=== PATIENT | female | born 1945 | race Caucasian/White ===

== ENCOUNTER → 2017-09-07 | Outpatient (CLI) | payer MEDICARE, OTHER ==
--- NOTE | 2017-09-08 11:18 | MM ---
Reason for exam: screening (asymptomatic). Last mammogram was performed 1 year and 11 months ago. History: Patient is postmenopausal. Physical Findings: A clinical breast exam by your physician is recommended on an annual basis and results should be correlated with mammographic findings. MG 3D Screening Mammo W/Cad Bilateral CC and MLO view(s) were taken. Prior study comparison: September 25, 2015, bilateral MG 3d screening mammo w/cad. August 04, 2012, [facility] DIGITAL BILATERAL MAMMOGRAM w/CAD. The breast tissue is heterogeneously dense. This may lower the sensitivity of mammography. Stable right calcifications back to 2016. Benign bilateral vascular calcifications. Stable right asymmetry unchanged from 08/01/12. ASSESSMENT: Benign, BI-RAD 2 RECOMMENDATION: Routine screening mammogram of both breasts in 1 year.
== END | disposition home or self-care (01) ==
LOC: RADMAMWWP 14:43
PROVIDERS: ATTEND Internal Medicine
DX: Z12.31 Encounter for screening mammogram for malignant neoplasm of breast (principal)
CPT/HCPCS: 77063; 77067

== ENCOUNTER → 2019-04-10 | Outpatient (CLI) | payer MEDICARE, OTHER ==
--- NOTE | 2019-04-11 07:38 | MM ---
Reason for exam: screening (asymptomatic). Last mammogram was performed 1 year and 7 months ago. History: Patient is postmenopausal. Physical Findings: A clinical breast exam by your physician is recommended on an annual basis and results should be correlated with mammographic findings. MG 3D Screening Mammo W/Cad Bilateral CC and MLO view(s) were taken. Prior study comparison: September 07, 2017, bilateral MG 3d screening mammo w/cad. September 25, 2015, bilateral MG 3d screening mammo w/cad. The breast tissue is heterogeneously dense. This may lower the sensitivity of mammography. Benign appearing bilateral calcifications. No suspicious abnormality on the left. Two right upper outer quadrant posterior depth masses measuring 8mm and 4mm, new from the prior. ASSESSMENT: Incomplete: need additional imaging evaluation, BI-RAD 0 RECOMMENDATION: Special view mammogram and ultrasound of the right breast. [facility] will attempt to contact patient to return for supplemental views and ultrasound.
== END | disposition home or self-care (01) ==
LOC: RADMAMWWP 14:23
PROVIDERS: ATTEND Internal Medicine
DX: Z12.31 Encounter for screening mammogram for malignant neoplasm of breast (principal)
CPT/HCPCS: 77063; 77067

== ENCOUNTER → 2019-05-04 | Outpatient (CLI) | payer MEDICARE, OTHER ==
[2019-05-04 16:39] VITALS: BP 154/89; PULSE 66; RESP 18; TEMP 97.7
--- NOTE | 2019-05-04 17:03 | P.GSHP ---
History of Present Illness H&P Date: 05/04/19 Chief Complaint: abnormal ultrasound of the right breast The patient is a 73 year old white female who had a routine mammogram of the right breast on 04-10-19. After this it was recommended she undergo a diagnostic right breast mammogram and ultrasound. On the ultrasound she was noted to have a 0.4 x 0.3 cm oval lesion in the upper outer quadrant region. The mammogram report is not available. The patient is seen in consultation for Dr. Bragg regarding ultrasound abnor mality requiring biopsy. The patient does not have any lumps masses or nodules in her breast. She is to complain of any nipple discharge or skin changes. She has no history of any recent trauma or infection in the breast. Is not on any hormone replacement therapy at this time. Of concern is the fact that the patient is scheduled to have right total knee replacement in the near future. Additionally she is very concerned because her 4 years ago from prostate cancer and melanoma. She is very concerned about cancer and wishes to have the breast findings resolved prior to any knee surgery. Family history: negative Hormonal History: menarche: 13 , 1 miscarriage, breast fed: yes, first born at 30 menopause: 55 BCP: 3 days hormones: none Past Surgical History: 1. 3 surgeries on right knee 2. ablation uterine 3. Percutaneous lumbar discectomy 4. kidney stones/ stent placed and removed Medical history: none Social History: smoke: none alcohol: none drugs: none - Constitutional Constitutional: Reports sweats - EENT Eyes: denies blurred vision, denies pain Ears: deny: decreased hearing, tinnitus Ears, nose, mouth and throat: Reports headache, Denies sore throat - Breasts Breasts: bilateral: as per HPI - Cardiovascular Cardiovascular: Reports high blood pressure, Denies chest pain, Denies shortness of breath - Respiratory Respiratory: Denies cough, Denies 7 - Gastrointestinal Gastrointestinal: Denies abdominal pain, Denies diarrhea, Denies nausea, Denies vomiting - Genitourinary (Female) Genitourinary: Reports kidney stones - Menstruation Menstruation: Reports postmenopausal - Musculoskeletal Comment: right knee osetoarthritis - Integumentary Integumentary: Denies pruritus, Denies rash - Neurological Neurological: Denies numbness, Denies weakness - Psychiatric Psychiatric: Denies anxiety, Denies depression - Endocrine Comment: hypothyroid Endocrine: Denies fatigue, Denies weight change - Hematologic/Lymphatic Comment: none - Allergic/Immunologic Allergic/Immunologic: Reports as per HPI Past Medical History Past Medical History: Hypertension, Thyroid Disorder Additional Past Medical History / Comment(s): kidney stones History of Any Multi-Drug Resistant Organisms: None Reported Past Surgical History: Orthopedic Surgery Additional Past Surgical History / Comment(s): knee/ kidney stent Past Psychological History: No Psychological Hx Reported Smoking Status: Never smoker Past Alcohol Use History: None Reported Medications and Allergies Home Medications Medication Instructions Recorded Confirmed Type Levothyroxine Sodium 100 mcg PO QAM 05/04/19 05/04/19 History Naproxen 250 mg PO QAM 05/04/19 05/04/19 History Ramipril 5 mg PO QAM 05/04/19 05/04/19 History amLODIPine [Norvasc] 5 mg PO QAM 05/04/19 05/04/19 History Allergies Allergy/AdvReac Type Severity Reaction Status Date / Time Penicillins Allergy Unknown Verified 05/04/19 16:24 Surgical - Exam BMI 21.4 - General well developed, well nourished, no distress - Eyes normal ocular movement - ENT normal pinna, normal nares, no hearing loss, no congestion - Neck no masses, trachea midline, no lymphadectomy - Respiratory normal expansion, normal respiratory effort, clear to percussion, clear to auscultation - Cardiovascular Rhythm: regular Heart Sounds: normal: S1, S2 - Abdomen Abdomen: soft, non tender, no guarding, no rigid, no rebound - Integumentary normal turgor - Neurologic no disoriented, no combative - Musculoskeletal normal gait, normal posture - Psychiatric oriented to time, oriented to person, oriented to place, speech is normal, memory intact breast exam: Right breast: Multi-positional exam fibrocystic changes, no dominant masses or nodules of concern Right axilla: No adenopathy of concern left breast: Multi- positional exam no dominant masses or nodules of concern Left axilla: No adenopathy of concern Results Ultrasound results reviewed Assessment and Plan Assessment: Impression: 1. Ultrasound abnormality right breast 2. Fibrocystic breast changes 3. Osteoarthritis 4. Hypertension 5. Hypothyroid 6. Patient scheduled for right total knee replacement Plan: 1. Patient will stop taking naproxen one-week prior biopsy 2. Ultrasound core biopsy abnormality right breast 3. Follow-up 1 week after ultrasound core biopsy I discussed with the patient the findings on her ultrasound. Is been recommended she undergo an ultrasound core biopsy of the right breast. She is scheduled for a right total knee replacement later this month. We will like to get the breast biopsy done next week if possible to give time to get the pathology results back and assure that there is no evidence of any infection after the breast biopsy. Risks of the procedure include bleeding, infection, and reaction to the anesthetic were discussed. She understands and this will be scheduled in the very near future. Cc: Dr. Holt Encounter 25 minutes, greater than 50% of time spent in planning and counseling
== END | disposition home or self-care (01) ==
LOC: WWCWWP 15:58
PROVIDERS: ATTEND Surgery
DX: Z53.9 Procedure and treatment not carried out, unspecified reason (principal)

== ENCOUNTER → 2019-05-04 | Outpatient (CLI) | payer MEDICARE, OTHER ==
--- NOTE | 2019-05-05 07:36 | MM ---
Reason for exam: additional evaluation requested from abnormal screening. Last mammogram was performed 1 month ago. History: Patient is postmenopausal. Physical Findings: Nurse did not find any significant physical abnormalities on exam. MG 3D Work Up W/Cad RT Spot compression CC, spot compression MLO, XCCM, and LM view(s) were taken of the right breast. Prior study comparison: April 10, 2019, bilateral MG 3d screening mammo w/cad. September 07, 2017, bilateral MG 3d screening mammo w/cad. The breast tissue is heterogeneously dense. This may lower the sensitivity of mammography. The 8mm focal asymmetry resolved on additional views. However the right upper outer quadrant posterior depth 4mm mass persists. There are similar right calcifications back to 2016. These results were verbally communicated with the patient and result sheet given to the patient on 05/04/19. ASSESSMENT: Incomplete: need additional imaging evaluation, BI-RAD 0 RECOMMENDATION: Ultrasound of the right breast. upper outer quadrant
--- NOTE | 2019-05-05 07:39 | USB ---
Reason for exam: additional evaluation requested from abnormal screening. History: Patient is postmenopausal. US Breast Workup Limited RT Right limited breast ultrasound including focal area of concern, retroareolar and axilla demonstrates a 0.4 x 0.3 x 0.3cm oval, thick, hypoechoic lesion at 11 o'clock, new on mammogram, biopsy recommended. These results were verbally communicated with the patient and result sheet given to the patient on 05/04/19. ASSESSMENT: Suspicious, BI-RAD 4 RECOMMENDATION: Ultrasound core biopsy of the right breast. Called Dr. Holt's office with mammographic findings and has scheduled an appointment for the patient for 05/04/[address] Hairston. Biopsy scheduled for 05/19/19 at 11:20. PRELIMINARY REPORT CALLED AND FAXED TO DR. HAIRSTON ON 05/05/19.
== END | disposition home or self-care (01) ==
LOC: RADMAMWWP 13:24
PROVIDERS: ATTEND Internal Medicine
DX: R92.8 Other abnormal and inconclusive findings on diagnostic imaging of breast (principal)
CPT/HCPCS: 77065; 76642; G0279; 77061

== ENCOUNTER → 2019-05-05 | Outpatient (CLI) | payer MEDICARE, OTHER ==
[2019-05-05 11:30] LABS: HCT 44.7 % (34.0-46.0); HGB 14.6 gm/dL (11.4-16.0); MCH 28.4 pg (25.0-35.0); MCHC 32.8 g/dL (31.0-37.0); MCV 86.6 fL (80.0-100.0); Mean Platelet Volume 9.3; Platelet Count 235 k/uL (150-450); RBC 5.16 m/uL (3.80-5.40); RDW 13.6 % (11.5-15.5); WBC 9.2 k/uL (3.8-10.6)
[2019-05-05 11:44] LABS: Albumin 4.5 g/dL (3.5-5.0); Calcium 10.1 mg/dL (8.4-10.2); Potassium 4.6 mmol/L (3.5-5.1); Total Bilirubin 0.7 mg/dL (0.2-1.3); Total Protein 7.3 g/dL (6.3-8.2)
[2019-05-05 11:56] LABS: INR 0.9 (<1.2); Partial Thromboplastin Time 24.8 sec (22.0-30.0)
== END | disposition home or self-care (01) ==
LOC: LABPAT 10:24
PROVIDERS: ATTEND Orthopaedic Surgery
DX: Z01.812 Encounter for preprocedural laboratory examination (principal); Z01.818 Encounter for other preprocedural examination
CPT/HCPCS: 36415; 80053; 85027; 85610; 85730; 87070

== ENCOUNTER → 2019-05-15 | Day surgery (SDC) | payer MEDICARE, OTHER ==
[2019-05-15 09:41] VITALS: RESP 12
[2019-05-15 10:35] VITALS: BP 154/90; PULSE 64; TEMP 97.8
--- NOTE | 2019-05-15 11:43 | USB ---
EXAMINATION TYPE: US biopsy breast VAD RT, MG diagnostic mammo RT wo CAD DATE OF EXAM: 05/15/2019 CLINICAL HISTORY: R92.8 Abnormal Mammogram. TECHNIQUE: Ultrasound guided core biopsy of right breast. COMPARISON: 05/04/2019 right breast ultrasound and mammogram FINDINGS: The procedure of ultrasound guided core biopsy was explained to the patient. Benefits, alternatives, and risks were discussed. An informed consent was then obtained. Preprocedure timeout was performed. The patient was placed in supine positioning for imaging and for the procedure. The overlying skin was prepped and draped in usual sterile fashion. Lidocaine buffered with bicarbonate was used as anesthetic into the skin and subcutaneous tissue up to a 4 mm mass at the 11:00 position in the right breast. A keo was made with surgical scalpel. Under ultrasound guidance, a 12-gauge vacuum assisted biopsy gun device was used to obtain 4 core samples. Following this, a ribbon-shaped biopsy marker was left in the mass, well seen on ultrasound. Postprocedure mammogram demonstrates appropriate biopsy marker placement. The patient tolerated the procedure well without any immediate complication. The patient was kept in the radiology department for short stay after the procedure and then discharged home in stable condition. IMPRESSION: Successful, uncomplicated ultrasound guided core biopsy of a highly suspicious 4 mm mass in the right breast at the 11:00 position, full pathology results to follow. 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 See Surgical Pathology Cancer Case Summary and Comment. Recommendation Surgical consult of the right breast. [facility]AG[facility]
== END ==
LOC: RADUSWWP 08:59
PROVIDERS: ATTEND Surgery
DX: C50.911 Malignant neoplasm of unspecified site of right female breast (principal); Z17.0 Estrogen receptor positive status [ER+]
CPT/HCPCS: 88305; 88342; 88341; 77065; 19083; A4648; J2001

== ENCOUNTER → 2019-05-19 | Outpatient (CLI) | payer MEDICARE, OTHER ==
--- NOTE | 2019-05-19 08:55 | P.PN ---
Subjective Progress Note Date: 05/19/19 Principal diagnosis: Right breast stage IA cancer Nancy is a 73-year-old white female status post right breast ultrasound core biopsy. This was performed and [id number]. Her pathology revealed an invasive ductal carcinoma. It is T1 N0 M0 G2ER + SC - HER-2 + invasive ductal carcinoma. The patient was scheduled to have a right total knee replacement nest week. I discussed the case [facility] and the recommendation is that the patient have the breast cancer treated prior to the knee replacement. The patient comes in this morning to discuss treatment options with her daughter present. Family history: Negative Hormonal history: Menarche: 13 1 miscarriage, breast-fed: Yes, first born at 30 Menopause: 55 control pills: 3 days Hormones: Negative Past surgical history: 1. 3 surgeries on right knee 2. Uterine ablation 3. Percutaneous lumbar discectomy 4. Kidney stones/stent placement and removed Medical history: Negative Social history: Smoke: Negative Occult: Negative Drugs: Negative Review of systems Constitutional: Sweats HEENT: Negative Breasts: As per HPI Cardiovascular: Hypertension, negative could've chest pain, negative shortness of breath Respiratory: Negative GI: Negative : Kidney stones Menstruation: Postmenopausal Musculoskeletal: Osteoarthritis right knee replacement recommended Integument: Negative Neurologic: Negative Psychiatric: Negative Endocrine: Hypothyroid Hematologic: Negative Objective - Exam BMI 21.4 - Constitutional General appearance: Present: average body habitus - EENT Eyes: Present: EOMI ENT: Present: hearing grossly normal - Neck Neck: Present: normal ROM - Respiratory Respiratory: bilateral: CTA - Cardiovascular Rhythm: regular Heart sounds: normal: S1, S2 - Gastrointestinal General gastrointestinal: Present: normal bowel sounds, soft - Integumentary Integumentary: Present: normal turgor - Musculoskeletal Musculoskeletal: Present: gait normal - Psychiatric Psychiatric: Present: A&O x's 3, appropriate affect, intact judgment & insight - Additional findings Additional findings: Breast examination: Right breast: Inspection: Mild ecchymosis at core biopsy site, no evidence of infection no evidence of hematoma Ptosis: Grade 2 Breast examination prior to biopsy right breast: Multiple positional exam fibrocystic changes or dominant masses or nodules of concern Right axilla: No adenopathy of concern Left breast: Multiple positional exam no dominant masses or nodules of concern, fibrocystic changes Left axilla: No adenopathy of concern Assessment and Plan Assessment: Impression: 1. Invasive ductal carcinoma right breast stage IA 2. Fibrocystic breast changes 3. Osteoarthritis 4. Hypertension 5. Hypothyroid 6. Patient scheduled for right total knee replacement/canceled secondary to breast cancer discussed with [facility] this will be done after treatment of the breast cancer. Plan: 1. Patient to stop naproxen one-week prior to surgery 2. Needle localization right breast lumpectomy possible tissue transfer, sentinel node biopsy possible axillary node dissection 3. Presentation of case at tumor board I have discussed in detail with the patient and her daughter the pathology findings. We discussed surgical options which would include lumpectomy plus or minus radiation therapy, mastectomy plus or minus reconstruction. The patient was offered an appointment with plastic surgery which she declined. Additionally sentinel node biopsy plus or minus axillary node dissection. The risks and benefits of each were discussed with the patient. The possibility of positive margin which would require additional surgery was discussed as well. The patient and her daughter understand and wish to proceed. Risks include but are not limited to bleeding, infection, reaction to the anesthetic, positive surgical margin requiring reexcision. CC: DR. Holt encounter 60 minutes> 50% of time in planning and counselling Time with Patient: Greater than 30
== END ==
LOC: WWCBREAST 07:21
PROVIDERS: ATTEND Surgery
DX: Z53.9 Procedure and treatment not carried out, unspecified reason (principal)

== ENCOUNTER 2019-05-27 15:59 | Emergency (ER) | payer MEDICARE, OTHER ==
[2019-05-27 16:09] VITALS: RESP 18
[2019-05-27] MEDS ORDERED: MORPHINE SULFATE 2 MG/ML SYRINGE IVP STA ×2 (16:42→18:04)
[2019-05-27] MEDS ORDERED: SODIUM CHLORIDE 0.9% 500 ML 500 ML IV STA (16:42)
[2019-05-27] MEDS ORDERED: ONDANSETRON 4 MG/2 ML VIAL IVP STA (16:42)
[2019-05-27] MEDS ORDERED: SODIUM CHLORIDE 0.9% 1,000 ML IV STA (16:42)
[2019-05-27] MEDS ORDERED: KETOROLAC 30 MG/ML 1 ML VIAL IVP STA (16:42)
[2019-05-27 17:06] LABS: Basophils # (A) 0.1 k/uL (0-0.2); Basophils % (A) 1 %; Eosinophils # (A) 0.1 k/uL (0-0.7); Eosinophils % (A) 1 %; HCT 45.7 % (34.0-46.0); HGB 14.6 gm/dL (11.4-16.0); Lymphocytes # (A) 1.9 k/uL (1.0-4.8); Lymphocytes % (A) 23 %; MCH 27.2 pg (25.0-35.0); MCV 85.1 fL (80.0-100.0); Mean Platelet Volume 9.4; Monocytes # (A) 0.5 k/uL (0-1.0); Monocytes % (A) 6 %; Neutrophils # (A) 5.5 k/uL (1.3-7.7); Neutrophils % (A) 67 %; Platelet Count 239 k/uL (150-450); RBC 5.37 m/uL (3.80-5.40); RDW 13.3 % (11.5-15.5); WBC 8.2 k/uL (3.8-10.6)
[2019-05-27 17:11] LABS: Appearance,Urine Clear (Clear); Bacteria,Urine Rare /hpf; Bilirubin,Urine Negative (Negative); Blood,Urine Moderate (Negative); Color,Urine Yellow; Glucose,Urine (UA) Negative (Negative); Ketones,Urine Negative (Negative); Leukocyte Esterase,Urine Moderate (Negative); Mucus,Urine Few /hpf; Nitrite,Urine Negative (Negative); Protein,Urine 1+ (Negative); RBC,Urine >182 /hpf (0-5); Specific Gravity,Urine 1.017 (1.001-1.035); Squamous Epithelial Cell,Urine <1 /hpf (0-4); Urobilinogen,Urine <2.0 mg/dL (<2.0); WBC,Urine 38 /hpf (0-5)
[2019-05-27 17:18] LABS: Albumin 4.4 g/dL (3.5-5.0); Potassium 4.2 mmol/L (3.5-5.1); Total Bilirubin 0.5 mg/dL (0.2-1.3); Total Protein 7.3 g/dL (6.3-8.2)
--- NOTE | 2019-05-27 17:24 | ED ---
Abdominal Pain HPI - General Chief Complaint: Abdominal Pain Stated Complaint: Flank pain Time Seen by Provider: 05/27/19 16:33 Source: patient Mode of arrival: ambulatory Limitations: no limitations - History of Present Illness Initial Comments: This 73-year-old female presented to the complaint of some right flank pain. She states that it is in her right back and lateral right mid abdomen. She denies any fever or chills. She's had nausea but no vomiting. There's been no diarrhea or constipation. She does have a history of previous kidney stones and this feels exactly similar. She has had to have a stent in her right ureter in the past by Dr. Guevara in 2014. She denies any frequency, urgency dysuria, or hematuria. The pain was sudden in onset and fairly severe. No other complaints or modifying factors. She does relate additional history that she recently was diagnosed this month with breast cancer. She is set up for a lumpectomy on June [address] Hairston. She is not currently on chemotherapy but may need radiation therapy in the future. - Related Data Home Medications Medication Instructions Recorded Confirmed Levothyroxine Sodium 100 mcg PO QAM 05/04/19 05/15/19 Naproxen 500 mg PO QAM 05/04/19 05/15/19 Ramipril 10 mg PO QAM 05/04/19 05/15/19 amLODIPine [Norvasc] 5 mg PO QAM 05/04/19 05/15/19 Biotin 5,000 mcg PO DAILY 05/09/19 05/15/19 Cholecalciferol (Vitamin D3) 2,000 units PO DAILY 05/09/19 05/15/19 [Vitamin D3] Lutein 20 mg PO DAILY 05/09/19 05/15/19 Previous Rx's Medication Instructions Recorded Ciprofloxacin HCl [Cipro] 500 mg PO Q12HR #14 tablet 05/27/19 Hydrocodone/Acetaminophen [[place] 1 - 2 each PO Q4HR PRN #20 tab 05/27/19 5-325] Ondansetron Odt [Zofran ODT] 8 mg PO Q8HR PRN #15 tab 05/27/19 Tamsulosin [Flomax] 0.4 mg PO DAILY #15 cap 05/27/19 Allergies Allergy/AdvReac Type Severity Reaction Status Date / Time Penicillins Allergy Unknown Verified 05/15/19 11:45 Review of Systems ROS Statement: Those systems with pertinent positive or pertinent negative responses have been documented in the HPI. ROS Other: All systems not noted in ROS Statement are negative. Past Medical History Past Medical History: Cancer, Hypertension, Thyroid Disorder Additional Past Medical History / Comment(s): breast History of Any Multi-Drug Resistant Organisms: None Reported Past Surgical History: Orthopedic Surgery Additional Past Surgical History / Comment(s): knee/ kidney stent Past Anesthesia/Blood Transfusion Reactions: Motion Sickness, Postoperative Nausea & Vomiting (PONV) Past Psychological History: No Psychological Hx Reported Smoking Status: Never smoker Past Alcohol Use History: None Reported Past Drug Use History: None Reported - Past Family History Father Additional Family Medical History / Comment(s): at age 82 from coronary artery disease (4 blocked arteries) Mother Family Medical History: No Reported History Additional Family Medical History / Comment(s): at age 90 from heart issues she incurred from Rheumatic Fever as a child. General Exam - General Exam Comments Initial Comments: GENERAL: The patient is well nourished and well hydrated. VITAL SIGNS: Heart rate, blood pressure, respiratory rate reviewed as recorded in nurse's notes. EYES: Pupils are round and reactive. Extraocular movements are intact. No c onjunctival / lid redness or swelling. ENT: No external evidence of injury, swelling, or ecchymosis. Airway is patent. Throat is clear. NECK: Nontender. No swelling or evidence of injury. No subcutaneous emphysema. Trachea is midline. No thyroid mass. HEART: Regular rate and rhythm. Good peripheral pulses. LUNGS/CHEST: Breath sounds clear and equal bilaterally. No rales, rhonchi, or wheezes. No ecchymosis, subcutaneous emphysema, or tenderness. ABDOMEN: Tenderness is noted to the right lateral mid abdomen as well as the right flank. Abdomen is otherwise soft. No palpable masses or organomegaly. No peritoneal signs. No abdominal wall swelling or ecchymosis. EXTREMITIES: No extremity tenderness. Normal muscle tone and function. No thoracolumbar tenderness. NEUROLOGIC: Sensation is grossly intact. Cranial nerve exam reveals face is symmetrical, tongue is midline, speech is clear. SKIN: No abrasions or ecchymosis is noted. No induration or masses noted. PSYCHIATRIC: Alert and oriented. Appropriate behavior and judgment. Limitations: no limitations Course Vital Signs 05/27/19 16:06 Temperature 97.4 F L Pulse Rate 64 Respiratory 18 Rate Blood Pressure 149/74 O2 Sat by Pulse 97 Oximetry Medical Decision Making - Medical Decision Making The patient was seen and examined. All diagnostics were reviewed. The laboratory overall is unremarkable. The IV is established and she received some morphine as well as some Zofran and Toradol intravenously. The urinalysis does show significant hematuria with some increase elevation of white blood cells as well. It does not appear to be conclusive for a urinary tract infection. The patient is feeling much improved on recheck with her pain level at 4 of 10. Additional 2 mg of morphine was given intravenously. The computed tomography scan of the abdomen and pelvis does show evidence of a right proximal 7 mm ureteral stone with hydronephrosis. There are multiple other stones noted in the right kidney. Overall, it is felt as though the patient is stable for discharge home. It is not felt as though she would benefit from admission to the hospital especially in light of her breast cancer diagnosis and exposure to additional germs. She is agreeable with this plan. She is able to be discharged home on last event back in 2013. She will need close follow-up with Dr. Guevara from urology. Return parameters are discussed. - Lab Data Result diagrams: 05/27/19 Unknown 05/27/19 Unknown Lab Results 05/27/19 05/27/19 05/27/19 Range/Units Unknown Unknown Unknown WBC 8.2 (3.8-10.6) k/uL RBC 5.37 (3.80-5.40) m/uL Hgb 14.6 (11.4-16.0) gm/dL Hct 45.7 (34.0-46.0) % MCV 85.1 (80.0-100.0) fL MCH 27.2 (25.0-35.0) pg MCHC 32.0 (31.0-37.0) g/dL RDW 13.3 (11.5-15.5) % Plt Count 239 (150-450) k/uL Neutrophils % 67 % Lymphocytes % 23 % Monocytes % 6 % Eosinophils % 1 % Basophils % 1 % Neutrophils # 5.5 (1.3-7.7) k/uL Lymphocytes # 1.9 (1.0-4.8) k/uL Monocytes # 0.5 (0-1.0) k/uL Eosinophils # 0.1 (0-0.7) k/uL Basophils # 0.1 (0-0.2) k/uL Sodium 140 (137-145) mmol/L Potassium 4.2 (3.5-5.1) mmol/L Chloride 105 (98-107) mmol/L Carbon Dioxide 25 (22-30) mmol/L Anion Gap 10 mmol/L BUN 23 H (7-17) mg/dL Creatinine 1.06 H (0.52-1.04) mg/dL Est GFR (CKD-EPI)AfAm 61 (>60 ml/min/1.73 sqM) Est GFR (CKD-EPI)NonAf 53 (>60 ml/min/1.73 sqM) Glucose 113 H (74-99) mg/dL Calcium 10.0 (8.4-10.2) mg/dL Total Bilirubin 0.5 (0.2-1.3) mg/dL AST 22 (14-36) U/L ALT 11 (4-34) U/L Alkaline Phosphatase 103 (38-126) U/L Total Protein 7.3 (6.3-8.2) g/dL Albumin 4.4 (3.5-5.0) g/dL Urine Color Yellow Urine Appearance Clear (Clear) Urine pH 6.0 (5.0-8.0) Ur Specific [place] 1.017 (1.001-1.035) Urine Protein 1+ H (Negative) Urine Glucose (UA) Negative (Negative) Urine Ketones Negative (Negative) Urine Blood Moderate H (Negative) Urine Nitrite Negative (Negative) Urine Bilirubin Negative (Negative) Urine Urobilinogen <2.0 (<2.0) mg/dL Ur Leukocyte Esterase Moderate H (Negative) Urine RBC >182 H (0-5) /hpf Urine WBC 38 H (0-5) /hpf Ur Squamous Epith Cells <1 (0-4) /hpf Urine Bacteria Rare H (None) /hpf Urine Mucus Few H (None) /hpf Disposition Clinical Impression: Right flank pain, Nausea, Ureterolithiasis, Hydronephrosis, Kidney stone on right side, Breast cancer Disposition: HOME SELF-CARE Condition: Good Prescriptions: Ciprofloxacin HCl [Cipro] 500 mg PO Q12HR #14 tablet Tamsulosin [Flomax] 0.4 mg PO DAILY #15 cap Hydrocodone/Acetaminophen [[place] 5-325] 1 - 2 each PO Q4HR PRN #20 tab PRN Reason: Pain Ondansetron Odt [Zofran ODT] 8 mg PO Q8HR PRN #15 tab PRN Reason: Nausea And Vomiting Is patient prescribed a controlled substance at d/c from ED?: Yes When asked, does pt state using other controlled substances?: No If prescribed controlled substance>3 days was MAPS reviewed?: Prescribed <3 Days Referrals: Erich Holt MD [Primary Care Provider] - 1-2 days Candido Veras MD [STAFF PHYSICIAN] - 1-2 days Time of Disposition: 18:07
--- NOTE | 2019-05-27 17:43 | CT ---
EXAMINATION TYPE: CT abdomen pelvis wo con DATE OF EXAM: 05/27/2019 COMPARISON: 05/02/2014 HISTORY: RT flank pain. Hx renal stones. Pt recently diagnosed with RT side breast ca. CT DLP: 538.2 mGycm Automated exposure control for dose reduction was used. Multiple axial sections were obtained without contrast from the diaphragm to the floor the pelvis. Lung bases are clear. There is no pleural effusion. Heart appears normal. Liver spleen pancreas gallbladder stomach appear normal. Bile ducts are not dilated. There are numerous bilateral renal calculi. These measure up to 1 cm. There is 5.5 cm cortical cyst a nterior left kidney. There is right-sided hydronephrosis and hydroureter. There is periureteral edema . There is 7 mm calculus proximal right ureter. The left side shows no sign of obstruction. Left uret er is not dilated. There are calcified uterine fibroids. Bladder distends smoothly. Uterus is retroverted. There are spo ndylotic changes in the lumbar spine. I see no bony destructive process. Bony pelvis is intact. There is enlargement of the spinal canal at the S3-S4 level consistent with sacral cyst. There is no mesenteric edema. There is no ascites or free air. There is no sign of a bowel obstructio n. There is no evidence of thickened appendix. IMPRESSION: Numerous bilateral renal calculi. Obstructing calculus proximal left ureter and approximate same loca tion as the obstructing calculus on previous exam.
[2019-05-27] MEDS ORDERED: cefTRIAXone IN SWFI 1,000 MG/10 ML SYRINGE IVP STA (17:50)
[2019-05-27 18:59] VITALS: BP 138/89; PULSE 91; TEMP 98.2
== END 2019-05-27 19:04 | disposition home or self-care (01) ==
LOC: EC 15:59
DX: N13.2 Hydronephrosis with renal and ureteral calculous obstruction (principal); C50.919 Malignant neoplasm of unspecified site of unspecified female breast; I10 Essential (primary) hypertension; E07.9 Disorder of thyroid, unspecified; Z88.0 Allergy status to penicillin; Z79.1 Long term (current) use of non-steroidal anti-inflammatories (NSAID); Z79.890 Hormone replacement therapy; Z79.899 Other long term (current) drug therapy; Z96.0 Presence of urogenital implants; Z53.20 Procedure and treatment not carried out because of patient's decision for unspecified reasons
CPT/HCPCS: 99284; 96374; 96375 ×3; 96361 ×2; 36415; 80053; 85025; 81001; 87086; 74176; J2405; J0696; J1885; J2270

== ENCOUNTER → 2019-05-29 | Day surgery (SDC) | payer MEDICARE, OTHER ==
[~2019-05-29] MED LIST: DEXAMETHASONE SOD PHOSPHATE 10 MG/ML 1 ML VIAL IV ONE; LACTATED RINGERS 1,000 ML IV ONE; LEVOFLOXACIN 500MG-D5W PMX 500 MG in DEXTROSE/WATER 1 100ML.BAG IVPB ONE; LIDOCAINE 1% INJ 10MG/ML (20 ML MDV) ONE; MIDAZOLAM 2 MG/2 ML VIAL ONE; MORPHINE SULFATE 4 MG/ML SYRINGE IV ONE; PROPOFOL 10 MG/ML 20 ML VIAL IV ONE; SCOPOLAMINE 1.5MG/72HR PATCH TRANSDERM ONE; ePHEDrine SULFATE/0.9% NACL/PF 50 MG/5 ML SYRINGE IV ONE; fentaNYL (PF) 50 MCG/ML 2 ML AMP ONE
--- NOTE | 2019-05-29 10:40 | P.GSHP ---
History of Present Illness H&P Date: 05/29/19 Chief Complaint: Right flank pain The patient is a 73-year-old white female well-known to me. She has a history of recurrent urolithiasis. She underwent left ureteroscopy with laser lithotripsy in 2011. Her calculus at that time was composed of calcium oxalate dihydrate, calcium oxalate monohydrate, and calcium phosphate. Her serum calcium level at that time was elevated, but her parathyroid hormone level was normal. She now presents with a 2 day history of right flank pain, associated with nausea. Computed tomography scan has shown bilateral renal calculi, as well as right hydronephrosis due to a 7 mm right proximal ureteral calculus. - Constitutional Constitutional: Denies chills, Denies fatigue - Gastrointestinal Gastrointestinal: Reports nausea, Reports vomiting - Genitourinary (Female) Genitourinary: Reports flank pain, Reports kidney stones Past Medical History Past Medical History: Cancer, Hypertension, Thyroid Disorder Additional Past Medical History / Comment(s): Breast Cancer History of Any Multi-Drug Resistant Organisms: None Reported Past Surgical History: Orthopedic Surgery Additional Past Surgical History / Comment(s): Right knee arthroscopy, left ureteroscopy with laser lithotripsy Past Anesthesia/Blood Transfusion Reactions: Motion Sickness, Postoperative Nausea & Vomiting (PONV) Past Psychological History: No Psychological Hx Reported Smoking Status: Never smoker Past Alcohol Use History: None Reported Past Drug Use History: None Reported - Past Family History Father Additional Family Medical History / Comment(s): at age 82 from coronary artery disease (4 blocked arteries) Mother Family Medical History: No Reported History Additional Family Medical History / Comment(s): at age 90 from heart issues she incurred from Rheumatic Fever as a child. Medications and Allergies Home Medications Medication Instructions Recorded Confirmed Type Levothyroxine Sodium 100 mcg PO QAM 05/04/19 05/15/19 History Naproxen 500 mg PO QAM 05/04/19 05/15/19 History Ramipril 10 mg PO QAM 05/04/19 05/15/19 History amLODIPine [Norvasc] 5 mg PO QAM 05/04/19 05/15/19 History Biotin 5,000 mcg PO DAILY 05/09/19 05/15/19 History Cholecalciferol (Vitamin D3) 2,000 units PO DAILY 05/09/19 05/15/19 History [Vitamin D3] Lutein 20 mg PO DAILY 05/09/19 05/15/19 History Ciprofloxacin HCl [Cipro] 500 mg PO Q12HR #14 tablet 05/27/19 Rx Hydrocodone/Acetaminophen [[place]ellers 1 - 2 each PO Q4HR PRN #20 tab 05/27/19 Rx 5-325] Ondansetron Odt [Zofran ODT] 8 mg PO Q8HR PRN #15 tab 05/27/19 Rx Tamsulosin [Flomax] 0.4 mg PO DAILY #15 cap 05/27/19 Rx Allergies Allergy/AdvReac Type Severity Reaction Status Date / Time Penicillins Allergy Unknown Verified 05/15/19 11:45 Surgical - Exam - General well developed, well nourished, moderate distress - Neck no masses, trachea midline - Respiratory normal respiratory effort, clear to auscultation - Cardiovascular Rhythm: regular Abnormal Heart Sounds: no systolic murmur, no diastolic murmur - Abdomen Abdomen: soft, tender (Right CVA tenderness is noted.), no guarding, no rigid, no rebound - Psychiatric oriented to time, oriented to person, oriented to place, speech is normal, memory intact Results - Imaging CT scan - abdomen: report reviewed, image reviewed Assessment and Plan (1) Calculus of kidney Status: Acute Code(s): N20.0 - CALCULUS OF KIDNEY SNOMED Code(s): 14219344 (2) Hydronephrosis with renal and ureteral calculous obstruction Status: Acute Code(s): N13.2 - HYDRONEPHROSIS WITH RENAL AND URETERAL CALCULOUS OBSTRUCTION SNOMED Code(s): 316100000 (3) Ureterolithiasis Status: Acute Code(s): N20.1 - CALCULUS OF URETER SNOMED Code(s): 82610460 Plan: Cystoscopy, right ureteral stent insertion. The procedure has been reviewed in detail with the patient and her daughter. The rationale for the procedure was discussed, as were potential risks which include anesthesia, infection, and ureteral injury. The possibility that the stent cannot be successfully place was also discussed, and in that instance ureteroscopy with laser lithotripsy will be performed. However, the plan is to simply place a ureteral stent and then schedule a secondary procedure in 2-4 weeks, which would consist of cystoscopy, right ureteral stent removal, right ureteroscopy with laser lithotripsy.
--- NOTE | 2019-05-29 16:27 | XR ---
EXAMINATION TYPE: XR KUB portable DATE OF EXAM: 05/29/2019 4:19 PM CLINICAL HISTORY: Right-sided kidney stone. TECHNIQUE: Two Upright KUB images of the abdomen are obtained. COMPARISON: CT abdomen and pelvis 2 days ago. Abdominal x-ray 2015. FINDINGS: Exam suboptimal due to overlying colonic fecal material. I do identify a roughly 5-10 small scattered renal cortical calculi measuring 3 mm or smaller in size. There are larger left renal calc christo redemonstrated measuring up to 12 mm long axis with roughly 5-10 calculi seen on current study. T he 6 mm proximal right ureter calculus superior L4 level on CT is less well seen on plain films. Calc ifications overlying superior aspect pubic symphysis corresponding to calcified fibroids on CT. Overall nonobstructive bowel gas pattern. Moderate narrowing of both hip joints lung bases are clear. Gas prominent bowel loops in the left upper to midabdomen incidentally noted. Persistent right renal prominence. IMPRESSION: Bilateral nephrolithiasis seen better on CT versus plain film. Unable to visualize 6 mm p roximal right ureter calculus on plain film seen on recent CT.
--- NOTE | 2019-05-29 17:54 | P.OP ---
Date of Procedure: 05/29/19 Preoperative Diagnosis: Right hydronephrosis secondary to right ureteral calculus Postoperative Diagnosis: Same Procedure(s) Performed: Cystoscopy, right ureteral stent insertion Anesthesia: JOMAR Surgeon: Candido Veras Estimated Blood Loss (ml): 0 IV fluids (ml): 400 Pathology: none sent Condition: stable Disposition: PACU Indications for Procedure: The patient is a 73-year-old white female well-known to de. She has a history of recurrent urolithiasis. She underwent left ureteroscopy with laser lithotripsy in 2011. Her calculus at that time was composed of calcium oxalate dihydrate, calcium oxalate monohydrate, and calcium phosphate. Her serum calcium level at that time was elevated, but her parathyroid hormone level was normal. She now presents with a 2 day history of right flank pain, associated with nausea. Computed tomography scan has shown bilateral renal calculi, as well as right hydronephrosis due to a 7 mm right proximal ureteral calculus. The calculus cannot be seen on a plain radiograph. Operative Findings: Successful placement of right ureteral stent. Description of Procedure: The patient was taken to the operating room and placed in the dorsolithotomy position, with legs supported in Otto stirrups. The external genitalia was prepped and draped sterilely. The 30 lens was used to introduce the 19-Indonesian Stortz cystoscopic sheath through the urethra and into the bladder under direct vision. The bladder was examined in its entirety. Both ureteral orifices were of normal anatomic location and configuration, and clear urine effluxed from both. No tumors or foreign bodies were seen. An angle-tip 0.035 inch Glidewire was passed through the cystoscope. The right ureteral orifice was cannulated, and the Glidewire was slowly advanced up to the renal pelvis. A 28 cm, 4.8- Indonesian double-J ureteral stent was placed over the wire. Proper stent positioning was verified fluoroscopically and endoscopically. There was evidence of a "hydronephrotic sutherland", as clear urine drained through the stent. The bladder was emptied and the cystoscope removed. The patient tolerated the procedure well was taken to the recovery room in stable condition.
[2019-05-29 18:02] VITALS: TEMP 97.8
[2019-05-29 18:25] VITALS: RESP 16
[2019-05-29 18:58] VITALS: BP 136/75; PULSE 74
--- NOTE | 2019-05-30 08:11 | FL ---
Fluoroscopy HISTORY: Stent placement 8 seconds fluoroscopy time supplied to the referring clinician. 1 intraoperative C-arm images docume nt the procedure. See dictated report from urology.
== END | disposition home or self-care (01) ==
LOC: OR 14:52
PROVIDERS: ATTEND Urology
DX: N13.2 Hydronephrosis with renal and ureteral calculous obstruction (principal); I10 Essential (primary) hypertension; E07.9 Disorder of thyroid, unspecified; Z87.442 Personal history of urinary calculi; Z85.3 Personal history of malignant neoplasm of breast; Z79.890 Hormone replacement therapy; Z79.899 Other long term (current) drug therapy; Z79.1 Long term (current) use of non-steroidal anti-inflammatories (NSAID); Z88.0 Allergy status to penicillin; Z98.890 Other specified postprocedural states; Z82.49 Family history of ischemic heart disease and other diseases of the circulatory system
CPT/HCPCS: 74018; 52332; C2625; C1769; J2250; J2270; J1100; J1956; J2001; J3010; J2704

== ENCOUNTER 2019-06-07 08:58 | Day surgery (SDC) | payer MEDICARE, OTHER ==
[2019-06-05 14:37] VITALS: BMI 21.5
[~2019-06-07 08:58] MED LIST changes: +HEPARIN SODIUM,PORCINE 5,000 UNIT/ML 1 ML VIAL SQ ONE; +HYDROmorphone 0.5 MG/0.5 ML SYRINGE IVP PRN; -LACTATED RINGERS 1,000 ML IV ONE; +LACTATED RINGERS 1,000 ML IV SCH; -LEVOFLOXACIN 500MG-D5W PMX 500 MG in DEXTROSE/WATER 1 100ML.BAG IVPB ONE; +LIDOCAINE 1% 20 ML VIAL (10MG/ML) FOR IV START INTRADERMA PRN; -LIDOCAINE 1% INJ 10MG/ML (20 ML MDV) ONE; +MIDAZOLAM 2 MG/2 ML VIAL IV PRN; -MIDAZOLAM 2 MG/2 ML VIAL ONE; -MORPHINE SULFATE 4 MG/ML SYRINGE IV ONE; +ONDANSETRON 4 MG/2 ML VIAL IVP ONE; -PROPOFOL 10 MG/ML 20 ML VIAL IV ONE; +Pre Op ABX Message 1 EACH MISC MISCELLANE ONE; -ePHEDrine SULFATE/0.9% NACL/PF 50 MG/5 ML SYRINGE IV ONE; -fentaNYL (PF) 50 MCG/ML 2 ML AMP ONE
[2019-06-07] MEDS ORDERED: ALPRAZolam 0.25 MG TAB PO ONE (09:20)
[2019-06-07] MEDS ORDERED: LIDOCAINE 1% INJ 10MG/ML (20 ML MDV) SQ ONE ×3 (10:02→11:55)
--- NOTE | 2019-06-07 10:35 | NM ---
EXAMINATION TYPE: NM sentinel node injection DATE OF EXAM: 06/07/2019 COMPARISON: Right breast biopsy dated 05/15/2019 HISTORY: Right breast cancer with request for sentinel node injection TECHNIQUE AND FINDINGS: The procedure of sentinel lymph node injection was explained to the patient. The benefits, alternatives, and risks were discussed. An informed consent was then obtained. Overlying skin is cleaned with sterile alcohol. Following this, 538 uCi Tc99m Tilmanocept was inject ed in the upper outer aspect of the right nipple intradermally. The patient tolerated the procedure well without any immediate complication. The patient was kept in the radiology department for short stay after the procedure and then taken to surgery for surgical p rocedure what is presumed intraoperative gamma probe will be used for sentinel lymph node detection. IMPRESSION: Right breast radiotracer injection for sentinel node localization as above.
[2019-06-07] MEDS ORDERED: LIDOCAINE 1% INJ 10MG/ML (20 ML MDV) ONE (11:20)
[2019-06-07] MEDS ORDERED: NEOSTIGMINE 1 MG/ML 10 ML VIAL ONE (11:20)
[2019-06-07] MEDS ORDERED: ePHEDrine SULFATE/0.9% NACL/PF 50 MG/5 ML SYRINGE IV ONE (11:20)
[2019-06-07] MEDS ORDERED: SUCCINYLCHOLINE CHLORIDE 100 MG/5 ML SYR IV ONE (11:20)
[2019-06-07] MEDS ORDERED: MIDAZOLAM 2 MG/2 ML VIAL ONE (11:20)
[2019-06-07] MEDS ORDERED: PROPOFOL 10 MG/ML 20 ML VIAL IV ONE (11:20)
[2019-06-07] MEDS ORDERED: ROCURONIUM BROMIDE 10 MG/ML 5 ML VIAL IV ONE (11:20)
[2019-06-07] MEDS ORDERED: fentaNYL (PF) 50 MCG/ML 2 ML AMP ONE (11:20)
[2019-06-07] MEDS ORDERED: GLYCOPYRROLATE 0.2 MG/ML 2 ML VIAL ONE (11:20)
--- NOTE | 2019-06-07 11:57 | P.NAPBC ---
NAPBC Queries - NAPBC Queries Was patient's case review presented at [facility] tumor board? If no, comment.: Yes Was patient's pathology reviewed at [facility]? If no, comment.: Yes Was breast conservation surgery offered? If no, comment.: Yes Was sentinel node biopsy offered? If no, comment.: Yes Was diagnosis confirmed by percutaneous core biopsy? If no, comment.: Yes Is patient mastectomy patient?: No Clinical Stage: Stage IA
--- NOTE | 2019-06-07 13:49 | P.OP ---
Date of Procedure: 06/07/19 Preoperative Diagnosis: Right breast invasive ductal carcinoma Postoperative Diagnosis: Same Procedure(s) Performed: Right breast sentinel node biopsy, needle localization and lumpectomy via a crescent mastopexy, onco-plastic tissue transfer Anesthesia: JARENA Surgeon: Gloria Hairston Estimated Blood Loss (ml): 5 IV fluids (ml): 500 Pathology: other (breast tissue, sentinal node) Condition: stable Disposition: same day Indications for Procedure: Invasive ductal carcinoma right breast Operative Findings: Fibrofatty breast tissue Description of Procedure: The patient is a 73-year-old white female who was noted to have an area of concern radiographically and core biopsy revealed invasive ductal carcinoma in the right breast. The patient opted for a lumpectomy and sentinel node biopsy possible axillary node dissection. In the preoperative area skin markings were placed. It was questioned whether this could be done via a didn't donut mastopexy versus a crescent mastopexy. The markings were placed for an eccentric donut mastopexy however the superior aspect at 12:00 could also serve for the upper border of the crescent mastopexy. Following needle localization of the area of concern in the right breast and lymph node kind injection the patient was brought to the operating room. The right breast and axilla were prepped and draped in a sterile fashion. The axilla was approached initially. Using the neoprobe the area of greatest radioactivity was identified. An incision was made over this area and dissection was carried down to the axillary tissue. This was grasped using an Allis clamp. Utilizing the Harmonic scalpel the area of lymph node was resected. Several larger vessels were suture ligated. The 10 second count on the lymph node was over 15,000. The 10 second background count was 50. No other palpable adenopathy of concern was identified. The wound was irrigated. Hemostasis was noted to be intact. The deep tissues were closed using 3-0 Vicryl suture. The skin was closed using 3-0 Vicryl suture in the deep tissues and 4-0 Monocryl running skin suture. The sentinel lymph node did not appear to be suspicious clinically and was sent for permanent section evaluation. The area of the breast was approached. It was felt that the resection could be done via a crescent mastopexy. The skin was re-marked and the area superior to the aerolar complex was de-epithelialized. The breast was entered through the de-epithelialized crescent area. Dissection was then performed down to the plane between the subcutaneous tissue and the breast tissue. A superior flap was developed to the shaft of the needle. The tissues were then dissected down to the chest wall surrounding the shaft of the needle. The posterior dissection was on the pectoralis major muscle. The tissue was excised. The defect was approximately 7 cm x 4 cm in size, 28 cm. The specimen was painted for orientation. Radiograph of the specimen revealed the area of concern had been removed. The medial and lateral pillars of tissue were mobilized. Its were mobilized approximately 28 cm. The total area of mobilization was 84 cm. Titanium clips were placed to identify the cavity. The medial and lateral pillar of tissue were brought together and secured using 3-0 Vicryl sutures. Following this the skin was closed using deep 3-0 Vicryl sutures in the dermal layer. This was followed by a 4-0 Monocryl subcuticular layer. A 4-0 nylon was then placed at the skin. Sterile dressing was applied. The patient tolerated the procedure in stable condition. All instrument and sponge counts were correct at the end of the case.
--- NOTE | 2019-06-07 13:51 | P.DS ---
Providers Attending physician: Gloria Hairston Primary care physician: Erich Holt Plan - Discharge Summary Discharge Rx Participant: No New Discharge Prescriptions: No Action Ramipril 10 mg PO QAM amLODIPine [Norvasc] 5 mg PO QAM Levothyroxine Sodium 100 mcg PO QAM Naproxen 500 mg PO QAM Lutein 20 mg PO DAILY Cholecalciferol (Vitamin D3) [Vitamin D3] 2,000 units PO DAILY Biotin 5,000 mcg PO DAILY Hydrocodone/Acetaminophen [[place] 5-325] 1 - 2 each PO Q4HR PRN #20 tab PRN Reason: Pain Tamsulosin [Flomax] 0.4 mg PO DAILY #30 cap Oxybutynin Chloride [Ditropan] 5 mg PO BID Discharge Medication List Levothyroxine Sodium 100 mcg PO QAM 05/04/19 [History] Naproxen 500 mg PO QAM 05/04/19 [History] Ramipril 10 mg PO QAM 05/04/19 [History] amLODIPine [Norvasc] 5 mg PO QAM 05/04/19 [History] Biotin 5,000 mcg PO DAILY 05/09/19 [History] Cholecalciferol (Vitamin D3) [Vitamin D3] 2,000 units PO DAILY 05/09/19 [History] Lutein 20 mg PO DAILY 05/09/19 [History] Hydrocodone/Acetaminophen [[place] 5-325] 1 - 2 each PO Q4HR PRN #20 tab 05/27/19 [Rx] Tamsulosin [Flomax] 0.4 mg PO DAILY #30 cap 05/29/19 [Rx] Oxybutynin Chloride [Ditropan] 5 mg PO BID 06/05/19 [History] Follow up Appointment(s)/Referral(s): Gloria Hairston MD [STAFF PHYSICIAN] - 1 Week Activity/Diet/Wound Care/Special Instructions: Do not drive today Wear bra at all times May shower after 48 hours Discharge Disposition: HOME SELF-CARE
[2019-06-07] MEDS: fentaNYL (PF) 50 MCG/ML 2 ML AMP IVP ONE ×2 (13:57→14:16)
[2019-06-07] MEDS ORDERED: LACTATED RINGERS 1,000 ML IV ONE ×2 (14:00)
[2019-06-07] MEDS ORDERED: HYDROcodone/APAP 5-325MG 1 EACH TAB PO PRN (14:04)
[2019-06-07 14:11] VITALS: TEMP 96.8
[2019-06-07 14:14] VITALS: RESP 16
--- NOTE | 2019-06-07 15:14 | MM ---
EXAMINATION TYPE: MG pre op needle loc RT, MG surgical specimen RT DATE OF EXAM: 06/07/2019 COMPARISON: Right breast biopsy dated 05/15/2019 CLINICAL HISTORY: Biopsy-proven right breast cancer TECHNIQUE: Needle localization with wire placement and surgical excision of area of concern in the right breast. FINDINGS: The procedure of needle localization with wire placement and than surgical excision was explained to the patient. Benefits, alternatives, and risks were discussed. An informed consent was then obtained. Preprocedural timeout was performed. The shortest pathway for procedure was chosen. Shortest pathway was CC from above approach. The overlying skin was prepped and draped in usual sterile fashion. 10 cc of 1% lidocaine was used as anesthetic into the skin and subcutaneous tissue up to the level of area of concern. A 7 cm needle was used. It was placed via a CC from above approach under mammographic guidance. Subsequent 90 degrees mammogram show the needle to be in satisfactory position relative to the targeted area. At this point, wire was placed and the needle was withdrawn. The wire was fixed to patient's skin. Images were marked for surgeon. The patient tolerated the procedure well without any immediate complication. The patient was kept in the radiology department for short stay after the procedure and then taken to surgery for surgical excision. Targeted biopsy marker and wire are identified in specimen mammogram. The patient was kept in hospital for short stay after the procedure and then discharged home in stable condition. IMPRESSION: Successful, uncomplicated needle localization with wire placement and surgical excision of a targeted biopsy marker denoting the biopsy-proven right breast carcinoma, full pathology results to follow. Pathology Results: Malignant A. SENTINEL LYMPH NODE, BIOPSIES: Two lymph nodes negative for metastatic adenocarcinoma as documented by H+E as well as appropriately controlled immunohistochemical studies for CORY and Cytokeratin 7. B. RIGHT AXILLARY CONTENTS, REGIONAL DISSECTION: Seven lymph nodes negative for metastatic adenocarcinoma. C. DE-EPITHELIALIZED SKIN: Benign skin and subcutaneous tissue. D. 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 The yellow- black inked superior/medial margin is approximately 0.9 mm away from infiltrating tumor and DCIS (block D1) and intermediate grade duct carcinoma is approximately 0.10 mm away from the yellow-purple inked medial/posterior margin of excision (block D6). See Surgical Pathology Cancer Case Summary. Recommendation Surgical consult of the right breast. (continued surgical management) REAGAN
[2019-06-07] MEDS ORDERED: HYDROcodone/APAP 5-325MG 1 EACH TAB PO ONE (16:04)
[2019-06-07 16:24] VITALS: BP 103/62; PULSE 69
== END 2019-06-07 16:52 | disposition home or self-care (01) ==
LOC: OR 08:58
PROVIDERS: ATTEND Surgery
DX: C50.911 Malignant neoplasm of unspecified site of right female breast (principal); N60.11 Diffuse cystic mastopathy of right breast; I10 Essential (primary) hypertension; E03.9 Hypothyroidism, unspecified; M19.90 Unspecified osteoarthritis, unspecified site; Z88.0 Allergy status to penicillin; Z88.8 Allergy status to other drugs, medicaments and biological substances; Z87.442 Personal history of urinary calculi; Z79.1 Long term (current) use of non-steroidal anti-inflammatories (NSAID); Z79.890 Hormone replacement therapy; Z79.899 Other long term (current) drug therapy; Z98.890 Other specified postprocedural states; Z17.0 Estrogen receptor positive status [ER+]
CPT/HCPCS: 88305; 88342; 88307; 88341; 76098; 19281; 38792; 38525; 19301; A9520; J2250; J1644; J1100; J2710; J2405; J2001; J3010; J0330; J2704

== ENCOUNTER → 2019-07-19 | Outpatient (CLI) | payer MEDICARE, OTHER ==
--- NOTE | 2019-07-19 14:01 | ECHOF ---
Referral Reason:[id number] breat ca pre chemo MEASUREMENTS -------- HEIGHT: 172.7 cm WEIGHT: 63.0 kg BP: RVIDd: 3.0 cm (< 3.3) IVSd: 1.0 cm (0.6 - 1.1) LVIDd: 3.4 cm (3.9 - 5.3) LVPWd: 1.0 cm (0.6 - 1.1) IVSs: 1.6 cm LVIDs: 1.5 cm LVPWs: 1.5 cm LAESV Index (A-L): 25.22 ml/m Ao Diam: 2.3 cm (2.0 - 3.7) AV Cusp: 1.7 cm (1.5 - 2.6) LA Diam: 2.0 cm (2.7 - 3.8) MV EXCURSION: 8.134 mm (> 18.000) MV EF SLOPE: 48 mm/s (70 - 150) EPSS: 0.3 cm MV E Ra: 0.73 m/s MV DecT: 201 ms MV A Ra: 1.11 m/s MV E/A Ratio: 0.66 AR PHT: 554 ms RAP: 5.00 mmHg RVSP: 37.37 mmHg TAPSE: 20.50 mm FINDINGS -------- Sinus rhythm. This was a technically good study. The left ventricular size is normal. Left ventricular wall thickness is normal. Overall left vent ricular systolic function is normal with, an EF between 55 - 60 %. The diastolic filling pattern is normal for the age of the patient 13.48. The right ventricle is normal in size. The right ventricular systolic function is normal. The left atrial size is normal. Normal LA size by volume 22+/-6 ml/m2. The right atrial size is normal. The aortic valve is trileaflet and appears structurally normal. There is mild aortic regurgitation. The mitral valve is normal. The mitral valve leaflets are mildly thickened. Mild mitral regurgita tion is present. Cannot exclude mitral valve prolapse. The tricuspid valve appears structurally normal. Mild tricuspid regurgitation present. There is b orderline pulmonary hypertension. The right ventricular systolic pressure, as measured by Doppler, is 37.37mmHg. There is no pulmonic regurgitation present. The aortic root size is normal. Normal inferior vena cava with normal inspiratory collapse consistent with estimated right atrial pre ssure of 5 mmHg. There is no pericardial effusion. CONCLUSIONS -------- 1. Sinus rhythm. 2. This was a technically good study. 3. The left ventricular size is normal. 4. Left ventricular wall thickness is normal. 5. Overall left ventricular systolic function is normal with, an EF between 55 - 60 %. 6. The diastolic filling pattern is normal for the age of the patient 13.48 7. The right ventricle is normal in size. 8. The right ventricular systolic function is normal. 9. The left atrial size is normal. 10. Normal LA size by volume 22+/-6 ml/m2. 11. The right atrial size is normal. 12. The aortic valve is trileaflet and appears structurally normal. 13. There is mild aortic regurgitation. 14. The mitral valve is normal. 15. The mitral valve leaflets are mildly thickened. 16. Mild mitral regurgitation is present. 17. Cannot exclude mitral valve prolapse. 18. The tricuspid valve appears structurally normal. 19. Mild tricuspid regurgitation present. 20. There is borderline pulmonary hypertension. 21. The right ventricular systolic pressure, as measured by Doppler, is 37.37mmHg. 22. There is no pulmonic regurgitation present. 23. The aortic root size is normal. 24. Normal inferior vena cava with normal inspiratory collapse consistent with estimated right atrial pressure of 5 mmHg. 25. There is no pericardial effusion. WAITER/[employer]RESS [employer]: Krys Sung RDCS
== END | disposition home or self-care (01) ==
LOC: RADECHMAIN 12:50
PROVIDERS: ATTEND Internal Medicine Hematology & Oncology
DX: I08.3 Combined rheumatic disorders of mitral, aortic and tricuspid valves (principal); I27.20 Pulmonary hypertension, unspecified; C50.411 Malignant neoplasm of upper-outer quadrant of right female breast; Z88.0 Allergy status to penicillin
CPT/HCPCS: 93306

== ENCOUNTER → 2019-07-20 | Outpatient (CLI) | payer MEDICARE, OTHER ==
--- NOTE | 2019-07-20 15:56 | US ---
EXAMINATION TYPE: US kidneys/renal and bladder DATE OF EXAM: 07/20/2019 COMPARISON: NONE CLINICAL HISTORY: N13.30 Hydronephrosis. Pain hydronephrosis. EXAM MEASUREMENTS: Right Kidney: 8.2 x 3.3 x 4.8 cm Left Kidney: 9.0 x 4.1 x 4.5 cm Right Kidney: Cystic area lower pole 1.9 x 1.4 x 1.3 cm. Left Kidney: Mild hydronephrosis. Superior cystic lesion measuring 4.3 x 3.7 x 5.3 with a peripheral calculus seen entering 1.4 cm. Bladder: Anechoic Bilateral Jets seen: Just right jet seen. IMPRESSION: 1. Mild left hydronephrosis is seen. Adjacent to this there is a superior left renal cyst measuring 5 .3 cm with a dependent peripheral calculus adjacent to this measuring 1.4 cm. 2. Right renal cyst appears Bosniak type I and benign.
== END | disposition home or self-care (01) ==
LOC: RADUSWWP 14:44
PROVIDERS: ATTEND Urology
DX: N13.30 Unspecified hydronephrosis (principal); N28.1 Cyst of kidney, acquired; N20.0 Calculus of kidney; Z88.0 Allergy status to penicillin
CPT/HCPCS: 76770

== ENCOUNTER → 2019-09-15 | Outpatient (CLI) | payer MEDICARE, OTHER ==
[2019-09-15 14:44] VITALS: BP 129/72; PULSE 85; RESP 18; TEMP 98.2
--- NOTE | 2019-09-15 15:02 | P.PN ---
Subjective Progress Note Date: 09/15/19 Principal diagnosis: Nancy is a 73 year old white female who underwent a right breast lumpectomy June 07 and SNB. 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 All margins were negative. [place] lymph nodes were negative. A total of 9 nodes were removed. The patient is undergoing chemotherapy and has completed 7 treatments. She has 5 more treatments to go. She recieves these once a week. She is being treated with taxol and herceptin. When she finishes the taxol she will be on just herceptin Q three weeks for nine months. Following this she will have radiation therapy. She is losing her hair. She has below the waist joint pain. She is having some diarrhea. She has some concerns about some nodularity in her breast. Objective - Vital Signs Vital signs: Vital Signs Temp 98.2 F 09/15/19 14:40 Pulse 85 09/15/19 14:40 Resp 18 09/15/19 14:40 BP 129/72 09/15/19 14:40 Pulse Ox 96 09/15/19 14:40 Intake & Output 09/14/19 09/15/19 09/15/19 18:59 06:59 18:59 Weight 63.957 kg - Exam BMI 21.4 - Constitutional General appearance: Present: average body habitus - EENT Eyes: Present: EOMI ENT: Present: hearing grossly normal - Neck Neck: Present: normal ROM - Respiratory Respiratory: bilateral: CTA - Cardiovascular Rhythm: regular Heart sounds: normal: S1, S2 - Gastrointestinal General gastrointestinal: Present: normal bowel sounds, soft - Integumentary Integumentary: Present: normal turgor - Musculoskeletal Musculoskeletal: Present: gait normal - Psychiatric Psychiatric: Present: A&O x's 3, appropriate affect, intact judgment & insight - Additional findings Additional findings: breast exam: BRA 34C inspection: No nipple inversion, well-healed scar right breast from prior surgery, ptosis grade 1 Palpation: Right breast multiple positional exam fibrocystic changes, there are 2 areas of nodularity in the old tumor bed which may well be scar tissue but are somewhat of concern Right axilla: No adenopathy of concern Left breast: Multiple positional exam no dominant masses or nodules of concern fibrocystic changes Left axilla: No adenopathy of concern Assessment and Plan Assessment: Impression: 1. Stage IA right breast cancer, on chemotherapy 2. status post lumpectomy on Jun 07, two areas of nodularity in tumor bed Plan: 1. Ultrasound of right breast 2. Ultrasound-guided core biopsy right breast 3. Coordinated above with chemotherapy 4. This to be done as soon as possible 5. It will be necessary to do a covid-19 test prior to the biopsy the patient understands and we are planning to schedule this for next week CC: DR. Holt encounter: 30 minutes, > 50% of time in planning and counselling Time with Patient: Greater than 30
== END ==
LOC: WWCWWP 14:30
PROVIDERS: ATTEND Surgery
DX: Z53.9 Procedure and treatment not carried out, unspecified reason (principal)

== ENCOUNTER → 2019-09-20 | Outpatient (CLI) | payer MEDICARE, OTHER | END | disposition home or self-care (01) | LOC: LABWHC1 09:12 | PROVIDERS: ATTEND Surgery | DX: Z11.59 Encounter for screening for other viral diseases (principal) | CPT/HCPCS: 87635 ==

== ENCOUNTER → 2019-09-21 | Outpatient (CLI) | payer MEDICARE, OTHER ==
--- NOTE | 2019-09-26 07:42 | USB ---
Reason for exam: clinical finding. History: Patient is postmenopausal and has history of breast cancer at age 73. Malignant MG pre op needle loc RT of the right breast, June 07, 2019. Lumpectomy of the right breast, June 07, 2019. Malignant US biopsy breast VAD RT of the right breast, May 15, 2019. Indicated problem(s): palpable abnormality in the right breast. Physical Findings: Nurse Summary: Patient complains she has felt two lumps x 3 weeks, 2.5cm lump hard, movable, palpated at 12 o'clock, 1cm hard, movable lump palpated at 1 o'clock, thickening right axilla (nurse TM). US Breast RT Technologist: Neris Sarah Right complete breast ultrasound includes all four quadrants, the retroareolar region and axilla. Finding demonstrates a 1.0 x 1.4 x 0.7cm oval, cystic lesion at 12 o'clock, a 1.2 x 1.7 x 0.9cm circular, solid appearing lesion at 1 o'clock, no flow, biopsy recommended, a 2.1 x 1.8 x 1.6cm circular, complex lesion at 11 o'clock, could be old hematoma versus solid lesion, biopsy recommended and a 0.5 x 0.7 x 0.5cm irregular, hypoechoic lesion at the posterior nipple, biopsy if seen. These results were verbally communicated with the patient and result sheet given to the patient on 09/21/19. ASSESSMENT: Suspicious, BI-RAD 4 RECOMMENDATION: Ultrasound core biopsy of the right breast. (3 sites) Called office with mammographic findings and has scheduled an appointment for the patient with Dr. Hairston. Office will notify patient with appointment date and time for follow up. Biopsy scheduled for 09/22/19 at 9:00. PRELIMINARY REPORT CALLED AND FAXED TO DR. HAIRSTON ON 09/26/19.
== END | disposition home or self-care (01) ==
LOC: RADUSWWP 13:34
PROVIDERS: ATTEND Surgery
DX: Z85.3 Personal history of malignant neoplasm of breast (principal)

== ENCOUNTER → 2019-09-22 | Day surgery (SDC) | payer MEDICARE, OTHER ==
[2019-09-22 08:21] VITALS: TEMP 97.9
--- NOTE | 2019-09-22 10:18 | USB ---
EXAMINATION TYPE: US biopsy breast VAD RT, MG diagnostic mammo RT wo CAD, US biopsy breast add'l VAD RT DATE OF EXAM: 09/22/2019 CLINICAL HISTORY: Z85.3 Personal History of Breast Cancer. Palpable abnormalities of the right breast for approximately 3 weeks. TECHNIQUE: Ultrasound guided core biopsy of right breast. COMPARISON: Right breast ultrasound dated 09/21/2019 FINDINGS: The procedure of ultrasound guided core biopsy was explained to the patient. Benefits, alternatives, and risks were discussed. An informed consent was then obtained. Preprocedural timeout was performed. Preprocedural scanning is not reproduced the retroareolar abnormality. Site A (11:00 right breast): The patient was placed in supine positioning for imaging and for the procedure. The overlying skin was prepped and draped in usual sterile fashion. 10 cc of 1% lidocaine was used as anesthetic into the skin and subcutaneous tissue up to a 2.1 cm palpable mass at the 11:00 position in the right breast. Under ultrasound guidance, a 12-gauge vacuum assisted biopsy gun device was used to obtain 4 core samples. Following this, a coil-shaped biopsy marker was left in the mass. Site B (1:00 right breast): The patient was placed in supine positioning for imaging and for the procedure. The overlying skin was prepped and draped in usual sterile fashion. 8 cc of 1% lidocaine was used as anesthetic into the skin and subcutaneous tissue up to a 1.2 cm palpable mass at the 1:00 position in the right breast. Under ultrasound guidance, a 12-gauge vacuum assisted biopsy gun device was used to obtain 3 core samples. Following this, a wing shaped biopsy marker was left in the mass. The patient tolerated the procedure well without any immediate complication. The patient was kept in the radiology department for short stay after the procedure and then discharged home in stable condition. Postprocedural mammogram demonstrates appropriate biopsy marker placement of both biopsy markers. IMPRESSION: Successful, uncomplicated two site ultrasound guided core biopsy of right breast at 11:00 and 1:00 at the palpable abnormalities, full pathology results to follow. Considerations are for hematomas, fat necrosis, or recurrence. Pathology Results: Benign A. RIGHT BREAST, SITE A, 11:00, ULTRASOUND GUIDED CORE BIOPSY: Fat necrosis with scar and inflammation, negative for malignancy. B. RIGHT BREAST, SITE B, 1:00, ULTRASOUND GUIDED CORE BIOPSY: Fat necrosis with scar and inflammation, negative for malignancy. Recommendation Follow up mammogram and ultrasound of the right breast in 6 months. MTDD
[2019-09-22 10:39] VITALS: BP 143/86; PULSE 71; RESP 18
== END ==
LOC: RADUSWWP 07:57
PROVIDERS: ATTEND Surgery
DX: R92.8 Other abnormal and inconclusive findings on diagnostic imaging of breast (principal); N64.1 Fat necrosis of breast; C50.911 Malignant neoplasm of unspecified site of right female breast; Z88.5 Allergy status to narcotic agent; Z88.0 Allergy status to penicillin
CPT/HCPCS: 88305; 77065; 19083; 19084; A4648; J2001

== ENCOUNTER → 2019-09-29 | Outpatient (CLI) | payer MEDICARE, OTHER ==
[2019-09-29 15:01] VITALS: BP 132/75; PULSE 74; RESP 18; TEMP 98.2
--- NOTE | 2019-09-29 15:13 | P.PN ---
Subjective Progress Note Date: 09/29/19 Principal diagnosis: Stage IA right breast cancer Nancy is a 73-year-old white female who was seen on for follow- up from a right breast lumpectomy and sentinel node biopsy for an 5 x 3 x 2 mm grade 2 invasive ductal carcinoma with DCIS. All margins were negative. [place] lymph nodes were negative. A total of 9 nodes were removed. The patient has completed 9 treatments of chemotherapy she has 3 left. She will then have 4 weeks of radiation therapy. On her last visit there was some concern that there was some fullness in the breast. Therefore ultrasound of the right breast with ultrasound-guided core biopsy was recommended. This was performed on . Pathology revealed fat necrosis with scarring and inflammation negative for malignancy. The patient tolerated the procedure with no difficulty. Objective - Vital Signs Vital signs: Vital Signs Temp 98.2 F 09/29/19 14:58 Pulse 74 09/29/19 14:58 Resp 18 09/29/19 14:58 BP 132/75 09/29/19 14:58 Pulse Ox 99 09/29/19 14:58 Intake & Output 09/28/19 09/29/19 09/29/19 18:59 06:59 18:59 Weight 65.317 kg - Exam BMI 21.9 - Constitutional General appearance: Present: average body habitus - EENT Eyes: Present: EOMI ENT: Present: hearing grossly normal - Respiratory Respiratory: bilateral: CTA - Cardiovascular Rhythm: regular Heart sounds: normal: S1, S2 - Integumentary Integumentary: Present: normal turgor - Musculoskeletal Musculoskeletal: Present: gait normal - Psychiatric Psychiatric: Present: A&O x's 3, appropriate affect, intact judgment & insight - Additional findings Additional findings: biopsy site right breast clean and dry, mild ecchymosis, no evidence of infection Assessment and Plan Assessment: Impression/plan: 1. Benign right breast core biopsy 2. Stage IA right breast cancer and chemotherapy 3. Patient finished chemotherapy administered radiation therapy 4. Right breast mammogram in December with physician exam her at that time 5. Bilateral breast mammogram in April 2020 Dr. Holt encounter 15 minutes, > 50% of time in planning and counselling Time with Patient: Less than 30
== END ==
LOC: WWCWWP 14:50
PROVIDERS: ATTEND Surgery
DX: Z53.9 Procedure and treatment not carried out, unspecified reason (principal)

== ENCOUNTER → 2019-11-14 | Outpatient (CLI) | payer MEDICARE, OTHER ==
--- NOTE | 2019-11-17 12:24 | ECHOF ---
Referral Reason:[id number] CHEMO EXPOSURE MEASUREMENTS -------- HEIGHT: 172.7 cm WEIGHT: 63.0 kg BP: RVIDd: 3.2 cm (< 3.3) IVSd: 1.2 cm (0.6 - 1.1) LVIDd: 3.6 cm (3.9 - 5.3) LVPWd: 1.2 cm (0.6 - 1.1) IVSs: 1.7 cm LVIDs: 2.4 cm LVPWs: 1.3 cm LA Diam: 3.5 cm (2.7 - 3.8) LAESV Index (A-L): 29.27 ml/m Ao Diam: 3.2 cm (2.0 - 3.7) AV Cusp: 2.0 cm (1.5 - 2.6) MV EXCURSION: 10.022 mm (> 18.000) MV EF SLOPE: 35 mm/s (70 - 150) EPSS: 0.2 cm MV E Ra: 0.83 m/s MV DecT: 356 ms MV A Ra: 1.15 m/s MV E/A Ratio: 0.72 AR PHT: 571 ms RAP: 5.00 mmHg RVSP: 31.31 mmHg FINDINGS -------- Sinus rhythm. This was a technically good study. The left ventricular size is normal. There is borderline concentric left ventricular hypertrophy. Overall left ventricular systolic function is normal with, an EF between 55 - 60 %. The right ventricle is normal in size. LA is midly dilated 29-33ml/m2. The right atrial size is normal. Interatrial and interventricular septum intact. The aortic valve is trileaflet, and appears structurally normal. No aortic stenosis or regurgitation. There is mild aortic regurgitation. The mitral valve leaflets are mildly thickened. Mild mitral regurgitation is present. Mild tricuspid regurgitation present. Right ventricular systolic pressure is normal at < 35 mmHg. There is no pulmonic regurgitation present. The aortic root size is normal. Normal inferior vena cava with normal inspiratory collapse consistent with estimated right atrial pre ssure of 5 mmHg. There is no pericardial effusion. CONCLUSIONS -------- 1. There is borderline concentric left ventricular hypertrophy. 2. Overall left ventricular systolic function is normal with, an EF between 55 - 60 %. 3. LA is midly dilated 29-33ml/m2. 4. There is mild aortic regurgitation. 5. The mitral valve leaflets are mildly thickened. 6. Mild mitral regurgitation is present. 7. Mild tricuspid regurgitation present. 8. There is no pericardial effusion. [employer]: Gillian Villaseñor RDCS
== END | disposition home or self-care (01) ==
LOC: RADECHMAIN 13:01
PROVIDERS: ATTEND Internal Medicine Hematology & Oncology
DX: I08.3 Combined rheumatic disorders of mitral, aortic and tricuspid valves (principal); Z88.0 Allergy status to penicillin
CPT/HCPCS: 93306

== ENCOUNTER → 2019-12-25 | Outpatient (CLI) | payer MEDICARE, OTHER ==
--- NOTE | 2019-12-25 13:52 | MM ---
Reason for exam: follow-up at short interval from prior study. Last mammogram was performed 3 months ago. History: Patient is postmenopausal and has history of breast cancer at age 73. Benign US biopsy breast VAD RT of the right breast, September 22, 2019. Benign US biopsy breast add'l VAD RT of the right breast, September 22, 2019. Malignant MG pre op needle loc RT of the right breast, June 07, 2019. Lumpectomy of the right breast, June 07, 2019. Malignant US biopsy breast VAD RT of the right breast, May 15, 2019. Physical Findings: Nurse Summary: nodule in the right breast at 11 o'clock and nipple (nurse abdirizak). MG 3D Diag Mammo W/Cad RT CC and MLO view(s) were taken of the right breast. Prior study comparison: September 22, 2019, right breast MG diagnostic mammo RT wo CAD. May 15, 2019, right breast MG diagnostic mammo RT wo CAD. The breast tissue is heterogeneously dense. This may lower the sensitivity of mammography. Post surgical and post therapy changes with areas of distortion and two microclips from biopsy 3 months ago. Continued short interval follow up recommended. Annual due in 4 months. These results were verbally communicated with the patient and result sheet given to the patient on 12/25/19. ASSESSMENT: Probably benign, BI-RAD 3 RECOMMENDATION: Follow-up diagnostic mammogram of both breasts in 4 months.
== END | disposition home or self-care (01) ==
LOC: RADMAMWWP 12:54
PROVIDERS: ATTEND Surgery
DX: Z08 Encounter for follow-up examination after completed treatment for malignant neoplasm (principal); Z85.3 Personal history of malignant neoplasm of breast
CPT/HCPCS: 77065; G0279; 77061

== ENCOUNTER → 2020-01-04 | Outpatient (CLI) | payer MEDICARE, OTHER ==
[2020-01-04 11:56] VITALS: BP 149/82; PULSE 63; RESP 18; TEMP 98.1
--- NOTE | 2020-01-04 12:27 | P.PN ---
Subjective Progress Note Date: 01/04/20 Principal diagnosis: stage Ia left breast cancer The patient is a 74 year old white female who had a routine mammogram of the right breast on 04-10-19. After this it was recommended she undergo a diagnostic right breast mammogram and ultrasound. On the ultrasound she was noted to have a 0.4 x 0.3 cm oval lesion in the upper outer quadrant region. The patient had an ultrasound-guided core biopsy [place] [id number]. This revealed invasive ductal carcinoma grade 2 and high-grade DCIS. This was ER positive RI negative HER-2 positive. She underwent a lumpectomy and sentinel node biopsy on 2519. 9 lymph nodes were removed which were negative for metastatic tumor. In the lumpectomy revealed a 5 x 3 mm moderately differentiated invasive ductal carcinoma. All margins were negative. She underwent adjuvant Taxol and Herceptin. And she then underwent adjuvant radiation therapy. The tumor was a T1 1 N0 M0 stage IA. She has no complaints of any nipple discharge or skin changes. She has no history of any recent trauma or infection in the breast. She has persistent palpable changes in the right breast near the area of the lumpectomy. She is presently on Aromasin. She states that she feels pain in her ankles knees and hips, and will follow with medical oncology with respect to this. She underwent an ultrasound in August secondary to some palpable changes in the right breast which resulted in a core biopsy of 2 sites in the right breast. Both of these were consistent with fat necrosis. She was scheduled to have a total knee replacement however this has been put on hold at the present time. She had a mammogram of the right breast on . The breast tissue is heterogeneously dense. There are postsurgical and post-therapeutic changes with areas of distortion noted on the radiograph. This was felt to be BIRADS 3 and repeat mammogram in 4 months of both breast. Family history: negative Hormonal History: menarche: 13 , 1 miscarriage, breast fed: yes, first born at 30 menopause: 55 BCP: 3 days hormones: none Past Surgical History: 1. 3 surgeries on right knee 2. ablation uterine 3. Percutaneous lumbar discectomy 4. kidney stones/ stent placed and removed Medical history: none Social History: smoke: none alcohol: none drugs: none - Constitutional Constitutional: Reports sweats - EENT Eyes: denies blurred vision, denies pain Ears: deny: decreased hearing, tinnitus Ears, nose, mouth and throat: Reports headache, Denies sore throat - Breasts Breasts: bilateral: as per HPI - Cardiovascular Cardiovascular: Reports high blood pressure, Denies chest pain, Denies shortness of breath - Respiratory Respiratory: Denies cough, Denies 7 - Gastrointestinal Gastrointestinal: Denies abdominal pain, Denies diarrhea, Denies nausea, Denies vomiting - Genitourinary (Female) Genitourinary: Reports kidney stones - Menstruation Menstruation: Reports postmenopausal - Musculoskeletal Comment: right knee osetoarthritis - Integumentary Integumentary: Denies pruritus, Denies rash - Neurological Neurological: Denies numbness, Denies weakness - Psychiatric Psychiatric: Denies anxiety, Denies depression - Endocrine Comment: hypothyroid Endocrine: Denies fatigue, Denies weight change - Hematologic/Lymphatic Comment: none - Allergic/Immunologic Allergic/Immunologic: Reports as per HPI Objective - Vital Signs Vital signs: Vital Signs Temp 98.1 F 01/04/20 11:53 Pulse 63 01/04/20 11:53 Resp 18 01/04/20 11:53 BP 149/82 01/04/20 11:53 Pulse Ox 98 01/04/20 11:53 Intake & Output 01/03/20 01/04/20 01/04/20 18:59 06:59 18:59 Weight 63.503 kg - Exam 21.3 - Constitutional General appearance: Present: thin - EENT Eyes: Present: EOMI ENT: Present: hearing grossly normal - Neck Neck: Present: normal ROM - Respiratory Respiratory: bilateral: CTA - Cardiovascular Rhythm: regular Heart sounds: normal: S1, S2 - Gastrointestinal General gastrointestinal: Present: normal bowel sounds, soft - Integumentary Integumentary: Present: normal turgor - Musculoskeletal Musculoskeletal: Present: gait normal - Psychiatric Psychiatric: Present: A&O x's 3, appropriate affect, intact judgment & insight - Additional findings Additional findings: breast exam: BRA 34C inspection: well healed scar right breast right breast smaller than left breast Palpation: Right breast: Well-healed scar from prior surgery, multi-positional exam nodularity at site of lumpectomy prior core biopsy revealed fat necrosis, fibrocystic changes; nodularity is approximately 3 cm x 1 cm with the more medial area of nodularity 1 cm x 5 mm Right axilla: No adenopathy of concern Left breast: Multi-positional exam fibrocystic breast changes Left axilla: No adenopathy of concern Assessment and Plan Assessment: Impression: 1. Stage I a right breast cancer status post lumpectomy, radiation therapy, adjuvant chemotherapy, presently on anti-hormonal therapy 2. Nodularity at lumpectomy site prior core biopsy revealed fat necrosis 3. BIRADS 3 [place] [id number] Plan: 1. I've reviewed the radiographs with the radiologist we are going to repeat an ultrasound of the right breast at this time 2. Depending on the palpable change in the breast as to the ultrasound appearance patient may opt to have this removed rather than watchful waiting 3. No evidence of recurrent cancer at this time Cc: Dr. Holt encounter 30 minutes, > 50% of time in planning and counselling
--- NOTE | 2020-01-04 13:52 | P.PN ---
Progress Note - Text Progress Note Date: 01/04/20 Repeat ultrasound of the right breast area today. On repeat ultrasound it appears that the lesions are all slightly smaller the same size. Additionally these lesions have been biopsied one core biopsy revealing fat necrosis. Therefore we are going to repeat a bilateral mammogram in 4 months with a right breast ultrasound as well. If the patient notes anything different prior to then she will give us a call.
--- NOTE | 2020-01-04 13:54 | USB ---
Reason for exam: clinical finding. History: Patient is postmenopausal and has history of breast cancer at age 73. Benign US biopsy breast VAD RT of the right breast, September 22, 2019. Benign US biopsy breast add'l VAD RT of the right breast, September 22, 2019. Malignant MG pre op needle loc RT of the right breast, June 07, 2019. Lumpectomy of the right breast, June 07, 2019. Malignant US biopsy breast VAD RT of the right breast, May 15, 2019. US Breast Limited RT Right limited breast ultrasound including focal area of concern, retroareolar and axilla demonstrates a 1.4 x 1.8 x 1.3cm solid lesion at 11 o'clock, previous biopsy, versus 2.1 x 1.8 x 1.6cm, a 1.1 x 1.3 x 0.7cm cystic lesion at 12 o'clock, versus 1.4cm previously and a 1.2 x 1.1 x 1.2cm solid lesion at 1 o'clock, previous biopsy, versus 1.7 x 1.2 x 0.9cm. Scanned 10-2 o'clock. Continued follow up recommended. These results were verbally communicated with the patient and result sheet given to the patient on 01/04/20. ASSESSMENT: Probably benign, BI-RAD 3 RECOMMENDATION: Follow-up diagnostic mammogram of both breasts in 4 months. Ultrasound of the right breast in 4 months.
== END | disposition home or self-care (01) ==
LOC: WWCWWP 11:27
PROVIDERS: ATTEND Surgery
DX: Z08 Encounter for follow-up examination after completed treatment for malignant neoplasm (principal); Z85.3 Personal history of malignant neoplasm of breast

== ENCOUNTER 2020-02-04 11:24 | Emergency (ER) | payer MEDICARE, OTHER ==
[2020-02-04 11:45] VITALS: RESP 18; TEMP 97.2
[2020-02-04] MEDS ORDERED: SODIUM CHLORIDE 0.9% 1,000 ML IV ONE (11:56)
[2020-02-04] MEDS ORDERED: KETOROLAC 15 MG/ML 1 ML VIAL IVP STA (11:57)
[2020-02-04] MEDS ORDERED: HYDROmorphone 0.5 MG/0.5 ML SYRINGE IVP STA ×2 (11:57→13:13)
--- NOTE | 2020-02-04 12:02 | ED ---
General Adult HPI - General Chief complaint: Abdominal Pain Stated complaint: cancer pt, kidney pain Time Seen by Provider: 02/04/20 11:40 Source: patient, RN notes reviewed, old records reviewed Mode of arrival: ambulatory Limitations: no limitations - History of Present Illness Initial comments: This is a 74-year-old female presents emergency Department stating that she believes she has another kidney stone. Patient states she has a history of kidn ey stones. Patient states he woke up this morning felt fine when she started having flank pain on the left side which is consistent with the pain she has had in the past with kidney stones. Patient states the pain comes and goes. Patient denies any vomiting. Patient denies any injury. Patient denies any chest pain difficult breathing shortest breath per patient denies any dysuria hematuria urinary frequency. Patient denies any recent fever chills or cough. Patient does have history of breast cancer. - Related Data Home Medications Medication Instructions Recorded Confirmed Levothyroxine Sodium 100 mcg PO QAM 05/04/19 01/04/20 amLODIPine [Norvasc] 5 mg PO QAM 05/04/19 01/04/20 ramipriL [Ramipril] 10 mg PO QAM 05/04/19 01/04/20 Biotin 5,000 mcg PO DAILY 05/09/19 01/04/20 Cholecalciferol (Vitamin D3) 2,000 units PO DAILY 05/09/19 01/04/20 [Vitamin D3] Lutein 20 mg PO DAILY 05/09/19 01/04/20 Exemestane [Aromasin] 25 mg PO QAM 01/04/20 01/04/20 Previous Rx's Medication Instructions Recorded Cephalexin [Keflex] 500 mg PO Q6HR #28 cap 02/04/20 Ketorolac [Toradol] 10 mg PO Q6HR #15 tab 02/04/20 Tamsulosin [Flomax] 0.4 mg PO DAILY #10 cap 02/04/20 Allergies Allergy/AdvReac Type Severity Reaction Status Date / Time hydromorphone [From Dilaudid] AdvReac Nausea & Verified 02/04/20 11:45 Vomiting Penicillins AdvReac Nausea & Verified 02/04/20 11:45 Vomiting Review of Systems ROS Statement: Those systems with pertinent positive or pertinent negative responses have been documented in the HPI. ROS Other: All systems not noted in ROS Statement are negative. Past Medical History Past Medical History: Cancer, Hypertension, Osteoarthritis (OA), Thyroid Disorder Additional Past Medical History / Comment(s): Breast Cancer dx May 2019, kidney stones History of Any Multi-Drug Resistant Organisms: None Reported Past Surgical History: Breast Surgery, Orthopedic Surgery Additional Past Surgical History / Comment(s): right knee surg., Right knee arthroscopy x2, left ureteroscopy with laser lithotripsy 06-14-19, right partial mastectomy 2019 Past Anesthesia/Blood Transfusion Reactions: Motion Sickness, Postoperative Nausea & Vomiting (PONV) Past Psychological History: No Psychological Hx Reported Smoking Status: Never smoker Past Alcohol Use History: None Reported Past Drug Use History: None Reported - Past Family History Father Family Medical History: No Reported History, Coronary Artery Disease (CAD) Additional Family Medical History / Comment(s): at age 82 from coronary artery disease (4 blocked arteries) Mother Family Medical History: No Reported History Additional Family Medical History / Comment(s): at age 90 from heart issues she incurred from Rheumatic Fever as a child. General Exam - General Exam Comments Initial Comments: GENERAL: Patient is well-developed and well-nourished. Patient is nontoxic and well- hydrated and is in moderate distress. ENT: Neck is soft and supple. No significant lymphadenopathy is noted. Oropharynx is clear. Moist mucous membranes. Neck has full range of motion without eliciting any pain. EYES: The sclera were anicteric and conjunctiva were pink and moist. Extraocular movements were intact and pupils were equal round and reactive to light. Eyelids were unremarkable. PULMONARY: Unlabored respirations. Good breath sounds bilaterally. No audible rales rhonchi or wheezing was noted. CARDIOVASCULAR: There is a regular rate and rhythm without any murmurs gallops or rubs. ABDOMEN: Soft and nontender with normal bowel sounds. SKIN: Skin is clear with no lesions or rashes and otherwise unremarkable. NEUROLOGIC: Patient is alert and oriented x3. Cranial nerves II through XII are grossly intact. Motor and sensory are also intact. Normal speech, volume and content. Symmetrical smile. MUSCULOSKELETAL: Normal extremities with adequate strength and full range of motion. Patient has some left-sided CVA tenderness. LYMPHATICS: No significant lymphadenopathy is noted PSYCHIATRIC: Normal psychiatric evaluation. Limitations: no limitations Course Vital Signs 02/04/20 02/04/20 11:40 13:20 Temperature 97.2 F L Pulse Rate 56 L 90 Respiratory 18 18 Rate Blood Pressure 122/57 114/60 O2 Sat by Pulse 98 100 Oximetry Medical Decision Making - Medical Decision Making X-ray shows multiple stones the left kidney. Urine shows positive nitrite positive leukocyte esterase and 30+ white cells. Patient got Toradol and Dilaudid emergency department as well as a gram of Rocephin. - Lab Data Result diagrams: 02/04/20 11:59 02/04/20 11:59 Lab Results 02/04/20 02/04/20 02/04/20 Range/Units 11:59 11:59 11:59 WBC 8.9 (3.8-10.6) k/uL RBC 4.93 (3.80-5.40) m/uL Hgb 13.4 (11.4-16.0) gm/dL Hct 42.0 (34.0-46.0) % MCV 85.3 (80.0-100.0) fL MCH 27.2 (25.0-35.0) pg MCHC 31.9 (31.0-37.0) g/dL RDW 13.1 (11.5-15.5) % Plt Count 200 (150-450) k/uL Neutrophils % 86 % Lymphocytes % 8 % Monocytes % 4 % Eosinophils % 1 % Basophils % 0 % Neutrophils # 7.7 (1.3-7.7) k/uL Lymphocytes # 0.7 L (1.0-4.8) k/uL Monocytes # 0.4 (0-1.0) k/uL Eosinophils # 0.1 (0-0.7) k/uL Basophils # 0.0 (0-0.2) k/uL Sodium 140 (137-145) mmol/L Potassium 4.4 (3.5-5.1) mmol/L Chloride 107 (98-107) mmol/L Carbon Dioxide 25 (22-30) mmol/L Anion Gap 8 mmol/L BUN 20 H (7-17) mg/dL Creatinine 0.97 (0.52-1.04) mg/dL Est GFR (CKD-EPI)AfAm 68 (>60 ml/min/1.73 sqM) Est GFR (CKD-EPI)NonAf 59 (>60 ml/min/1.73 sqM) Glucose 125 H (74-99) mg/dL Calcium 9.6 (8.4-10.2) mg/dL Total Bilirubin 0.5 (0.2-1.3) mg/dL AST 20 (14-36) U/L ALT 11 (4-34) U/L Alkaline Phosphatase 89 (38-126) U/L Total Protein 7.2 (6.3-8.2) g/dL Albumin 4.4 (3.5-5.0) g/dL Urine Color Yellow Urine Appearance Clear (Clear) Urine pH 6.5 (5.0-8.0) Ur Specific [place] 1.014 (1.001-1.035) Urine Protein Trace H (Negative) Urine Glucose (UA) Negative (Negative) Urine Ketones Negative (Negative) Urine Blood Trace H (Negative) Urine Nitrite Positive H (Negative) Urine Bilirubin Negative (Negative) Urine Urobilinogen <2.0 (<2.0) mg/dL Ur Leukocyte Esterase Large H (Negative) Urine RBC 4 (0-5) /hpf Urine WBC 33 H (0-5) /hpf Ur Squamous Epith Cells <1 (0-4) /hpf Urine Mucus Rare H (None) /hpf Disposition Clinical Impression: Renal colic, Urinary tract infection Disposition: HOME SELF-CARE Instructions (If sedation given, give patient instructions): Renal Colic (ED), Urinary Tract Infection in Women (DC) Prescriptions: Tamsulosin [Flomax] 0.4 mg PO DAILY #10 cap Cephalexin [Keflex] 500 mg PO Q6HR #28 cap Ketorolac [Toradol] 10 mg PO Q6HR #15 tab Is patient prescribed a controlled substance at d/c from ED?: No Referrals: Erich Holt MD [Primary Care Provider] - 1-2 days
[2020-02-04 12:11] LABS: Basophils % (A) 0 %; Eosinophils # (A) 0.1 k/uL (0-0.7); Eosinophils % (A) 1 %; HGB 13.4 gm/dL (11.4-16.0); Lymphocytes # (A) 0.7 k/uL (1.0-4.8); Lymphocytes % (A) 8 %; MCH 27.2 pg (25.0-35.0); MCHC 31.9 g/dL (31.0-37.0); MCV 85.3 fL (80.0-100.0); Mean Platelet Volume 8.7; Monocytes # (A) 0.4 k/uL (0-1.0); Monocytes % (A) 4 %; Neutrophils # (A) 7.7 k/uL (1.3-7.7); Neutrophils % (A) 86 %; Platelet Count 200 k/uL (150-450); RBC 4.93 m/uL (3.80-5.40); RDW 13.1 % (11.5-15.5); WBC 8.9 k/uL (3.8-10.6)
[2020-02-04 12:22] LABS: Albumin 4.4 g/dL (3.5-5.0); Calcium 9.6 mg/dL (8.4-10.2); Potassium 4.4 mmol/L (3.5-5.1); Total Bilirubin 0.5 mg/dL (0.2-1.3); Total Protein 7.2 g/dL (6.3-8.2)
--- NOTE | 2020-02-04 12:30 | XR ---
EXAMINATION TYPE: XR KUB DATE OF EXAM: 02/04/2020 COMPARISON: 05/29/2019 INDICATION: Kidney stones TECHNIQUE: Single view abdomen upright view FINDINGS: There is a normal bowel gas pattern. Psoas margins are normal. No organomegaly is present. Multiple left-sided renal stones are again evident. Superior left renal stone currently is estimated at 1.5 cm. Additional mid and inferior pole renal stones are again evident and measure approximately 0.6 cm each. There may be some stable calcification in the medial left hemipelvis. IMPRESSION: 1. Multiple left-sided renal stones.
[2020-02-04 13:20] LABS: Appearance,Urine Clear (Clear); Bilirubin,Urine Negative (Negative); Blood,Urine Trace (Negative); Color,Urine Yellow; Glucose,Urine (UA) Negative (Negative); Ketones,Urine Negative (Negative); Leukocyte Esterase,Urine Large (Negative); Mucus,Urine Rare /hpf; Nitrite,Urine Positive (Negative); PH, Urine 6.5 (5.0-8.0); Protein,Urine Trace (Negative); RBC,Urine 4 /hpf (0-5); Specific Gravity,Urine 1.014 (1.001-1.035); Squamous Epithelial Cell,Urine <1 /hpf (0-4); Urobilinogen,Urine <2.0 mg/dL (<2.0); WBC,Urine 33 /hpf (0-5)
[2020-02-04 13:21] VITALS: BP 114/60; PULSE 90
[2020-02-04] MEDS ORDERED: cefTRIAXone IN SWFI 1,000 MG/10 ML SYRINGE IVP STA (13:26)
[2020-02-04] MEDS ORDERED: ACET/COD 300 MG/30 MG STARTER PACK 6 TAB BTL PO STA (13:39)
== END 2020-02-04 13:44 | disposition home or self-care (01) ==
LOC: EC 11:24
DX: N39.0 Urinary tract infection, site not specified (principal); I10 Essential (primary) hypertension; E07.9 Disorder of thyroid, unspecified; Z79.890 Hormone replacement therapy; Z79.899 Other long term (current) drug therapy; Z85.3 Personal history of malignant neoplasm of breast; Z88.5 Allergy status to narcotic agent; Z88.0 Allergy status to penicillin; Z98.890 Other specified postprocedural states; Z87.442 Personal history of urinary calculi
CPT/HCPCS: 36415; 80053; 85025; 81001; 87086; 74018; 99284; 96374; 96375 ×2; 96376; 96361; J0696; J1885; J1170

== ENCOUNTER 2020-02-06 11:50 | Day surgery (SDC) | payer MEDICARE, OTHER ==
[2020-02-05 11:24] VITALS: BMI 21.2
--- NOTE | 2020-02-05 22:47 | P.GSHP ---
History of Present Illness H&P Date: 02/05/20 Chief Complaint: Left flank pain The patient is a 74-year-old white female with a history of recurrent urolithiasis. He underwent ureteroscopic removal of a right ureteral calculus in May 2019. She now presents with left flank pain. A KUB x-ray has shown multiple left renal calculi measuring up to 15 mm in size. A urine culture has shown Aerococcus urinae. - Constitutional Constitutional: Denies chills, Denies fever - Cardiovascular Cardiovascular: Denies chest pain - Respiratory Respiratory: Denies dyspnea - Genitourinary (Female) Genitourinary: Reports flank pain, Reports kidney stones, Denies dysuria, Denies hematuria Past Medical History Past Medical History: Cancer, Hypertension, Osteoarthritis (OA), Thyroid Disorder Additional Past Medical History / Comment(s): Breast Cancer dx May 2019, had chemo & radiation-completed in December, kidney stones History of Any Multi-Drug Resistant Organisms: None Reported Past Surgical History: Breast Surgery, Orthopedic Surgery Additional Past Surgical History / Comment(s): right knee surg., Right knee arthroscopy x2, left ureteroscopy with laser lithotripsy 06-14-19, right partial mastectomy 2019, port-a-cath insertion Past Anesthesia/Blood Transfusion Reactions: Motion Sickness, Postoperative Nausea & Vomiting (PONV) Smoking Status: Never smoker - Past Family History Father Family Medical History: No Reported History, Coronary Artery Disease (CAD) Additional Family Medical History / Comment(s): at age 82 from coronary artery disease (4 blocked arteries) Mother Family Medical History: No Reported History Additional Family Medical History / Comment(s): at age 90 from heart issues she incurred from Rheumatic Fever as a child. Medications and Allergies Home Medications Medication Instructions Recorded Confirmed Type Levothyroxine Sodium 100 mcg PO QAM 05/04/19 02/05/20 History amLODIPine [Norvasc] 5 mg PO QAM 05/04/19 02/05/20 History ramipriL [Ramipril] 10 mg PO QAM 05/04/19 02/05/20 History Biotin 5,000 mcg PO DAILY 05/09/19 02/05/20 History Cholecalciferol (Vitamin D3) 2,000 units PO DAILY 05/09/19 02/05/20 History [Vitamin D3] Lutein 20 mg PO DAILY 05/09/19 02/05/20 History Exemestane [Aromasin] 25 mg PO QAM 01/04/20 02/05/20 History Cephalexin [Keflex] 500 mg PO Q6HR #28 cap 02/04/20 02/05/20 Rx Acetaminophen-Codeine 300-30mg 1 - 2 tab PO Q4-6H PRN 02/05/20 02/05/20 History [Tylenol w/codeine #3] Ketorolac [Toradol] 10 mg PO Q6HR PRN 02/05/20 02/05/20 History Tamsulosin [Flomax] 0.4 mg PO DAILY 02/05/20 02/05/20 History Allergies Allergy/AdvReac Type Severity Reaction Status Date / Time hydromorphone [From Dilaudid] AdvReac Nausea & Verified 02/05/20 10:56 Vomiting Penicillins AdvReac Nausea & Verified 02/05/20 10:56 Vomiting Surgical - Exam - General well developed, well nourished - Respiratory normal respiratory effort - Psychiatric oriented to time, oriented to person, oriented to place, speech is normal, memory intact Results - Imaging Abdominal x-ray: report reviewed, image reviewed Assessment and Plan (1) Calculus of kidney Status: Acute Code(s): N20.0 - CALCULUS OF KIDNEY SNOMED Code(s): 67495931 Plan: Cystoscopy, left ureteral stent insertion. The procedure has been reviewed in detail with the patient. She will continue to be treated with antibiotics. Once the UTI has cleared, she will undergo ureteroscopic removal of her left renal calculi. Potential risks associated with stent insertion include anesthesia, bleeding, infection, and ureteral injury.
[~2020-02-06 11:50] MED LIST changes: -HEPARIN SODIUM,PORCINE 5,000 UNIT/ML 1 ML VIAL SQ ONE; -HYDROmorphone 0.5 MG/0.5 ML SYRINGE IVP PRN; +LEVOFLOXACIN 500MG-D5W PMX 500 MG in DEXTROSE/WATER 1 100ML.BAG IVPB ONE; -LIDOCAINE 1% 20 ML VIAL (10MG/ML) FOR IV START INTRADERMA PRN; -Pre Op ABX Message 1 EACH MISC MISCELLANE ONE; -SCOPOLAMINE 1.5MG/72HR PATCH TRANSDERM ONE; +fentaNYL (PF) 50 MCG/ML 2 ML AMP IV PRN
[2020-02-06] MEDS ORDERED: LIDOCAINE 1% (10MG/ML) FOR IV START INTRADERMA ONE (12:15)
[2020-02-06] MEDS ORDERED: SCOPOLAMINE 1.5MG/72HR PATCH TRANSDERM ONE (12:32)
[2020-02-06] MEDS ORDERED: PROPOFOL 10 MG/ML 20 ML VIAL IV ONE (13:25)
[2020-02-06] MEDS ORDERED: LIDOCAINE 1% INJ 10MG/ML (20 ML MDV) ONE (13:25)
[2020-02-06] MEDS ORDERED: MIDAZOLAM 2 MG/2 ML VIAL ONE (13:25)
[2020-02-06] MEDS ORDERED: fentaNYL (PF) 50 MCG/ML 2 ML AMP ONE (13:25)
[2020-02-06] MEDS ORDERED: IOPAMIDOL-370 50ML BTL MISCELLANE ONE ×2 (13:46)
[2020-02-06 14:13] VITALS: TEMP 97
--- NOTE | 2020-02-06 14:18 | FL ---
EXAMINATION TYPE: FL urography retrograde DATE OF EXAM: 02/06/2020 CLINICAL HISTORY: Left-sided kidney stone. TECHNIQUE: Fluoroscopy. COMPARISON: Abdominal x-ray 2 days ago. FINDINGS: Fluoroscopic guidance was provided during left ureter stent insertion procedure performed by Dr. Veras. A total of 29 seconds of fluoroscopic time was utilized during the procedure and four spot images was acquired. Images acquired show left UVJ access with contrast opacification of the le ft ureter and collecting system with advancement of guidewire. IMPRESSION: As Above.
--- NOTE | 2020-02-06 14:18 | P.OP ---
Date of Procedure: 02/06/20 Preoperative Diagnosis: Left renal calculi Postoperative Diagnosis: Left renal calculi, left ureteral calculus Procedure(s) Performed: Cystoscopy, left retrograde pyelogram, left ureteral stent insertion Anesthesia: JARENA Surgeon: Candido Veras Estimated Blood Loss (ml): 0 IV fluids (ml): 500 Pathology: none sent Condition: stable Disposition: PACU Indications for Procedure: The patient is a 74-year-old white female with a history of recurrent urolithia sis. He underwent ureteroscopic removal of a right ureteral calculus in May 2019. She now presents with left flank pain. A KUB x-ray has shown multiple left renal calculi measuring up to 15 mm in size. A urine culture has shown Aerococcus urinae. Operative Findings: Obstructing left proximal ureteral calculus. Description of Procedure: The patient was taken to the operating room and placed in the dorsolithotomy position, with legs supported in Otto stirrups. The external genitalia was prepped and draped sterilely. The 30 lens was used to introduce the 22-Libyan Stortz cystoscopic sheath through the urethra and into the bladder under direct vision. The bladder was examined in its entirety. Both ureteral orifices were of normal anatomic location and configuration. No tumors or foreign bodies were seen. Using a 10-Libyan cone-tipped catheter, a left retrograde pyelogram was performed. The distal half of the ureter appeared normal. Within the left proximal ureter, and obstructing calculus was identified. The ureter proximal to this was dilated, and there was evidence of hydronephrosis. A 0.035 inch Glidewire was passed through the cystoscope. The left ureteral orifice was cannulated, and the Glidewire was slowly advanced up to the renal pelvis. A 26 cm, 6-Libyan double-J ureteral stent was placed over the wire. After removing the wire, the distal end of the stent retracted into the distal ureter. The proximal end of the stent coiled within an upper pole calyx. The bladder was emptied and the cystoscope removed. The patient tolerated the procedure well was taken to the recovery room in stable condition.
[2020-02-06 14:44] VITALS: RESP 16
[2020-02-06] MEDS ORDERED: LACTATED RINGERS 1,000 ML IV ONE (14:48)
[2020-02-06] MEDS ORDERED: Acetaminophen-Codeine 300-30mg TAB PO ONE (15:20)
[2020-02-06] MEDS ORDERED: Acetaminophen-Codeine 300-30mg TAB ONE (15:21)
[2020-02-06 15:40] VITALS: BP 118/61; PULSE 64
== END 2020-02-06 15:51 | disposition home or self-care (01) ==
LOC: OR 11:50
PROVIDERS: ATTEND Urology
DX: N13.2 Hydronephrosis with renal and ureteral calculous obstruction (principal); N39.0 Urinary tract infection, site not specified; B96.89 Other specified bacterial agents as the cause of diseases classified elsewhere; Z87.442 Personal history of urinary calculi; I10 Essential (primary) hypertension; M19.90 Unspecified osteoarthritis, unspecified site; E07.9 Disorder of thyroid, unspecified; Z85.3 Personal history of malignant neoplasm of breast; Z88.0 Allergy status to penicillin; Z88.5 Allergy status to narcotic agent; Z92.21 Personal history of antineoplastic chemotherapy; Z92.3 Personal history of irradiation; Z79.890 Hormone replacement therapy; Z79.899 Other long term (current) drug therapy; Z79.1 Long term (current) use of non-steroidal anti-inflammatories (NSAID); Z90.11 Acquired absence of right breast and nipple; Z98.890 Other specified postprocedural states; Z82.49 Family history of ischemic heart disease and other diseases of the circulatory system
CPT/HCPCS: 74420; 52332; C2625; C1758; C1769; J1100; J2405; J1956; Q9967

== ENCOUNTER 2020-02-15 08:21 | Day surgery (SDC) | payer MEDICARE, OTHER ==
--- NOTE | 2020-02-08 20:01 | P.GSHP ---
History of Present Illness H&P Date: 02/08/20 Chief Complaint: Left flank pain The patient is a 74-year-old white female with a history of recurrent urolithiasis. She underwent ureteroscopic removal of a right ureteral calculus in May 2019. She now presents with left flank pain. A KUB x-ray revealed multiple left renal calculi measuring up to 15 mm in size. A urine culture showed Aerococcus urinae. She underwent left ureteral stent insertion, and was found at that time to have a left proximal ureteral calculus. Her UTIs been treated with ciprofloxacin. She now comes for ureteroscopic removal of her calculi. - Constitutional Constitutional: Denies chills, Denies fever - Genitourinary (Female) Genitourinary: Reports flank pain, Reports kidney stones Past Medical History Past Medical History: Cancer, Hypertension, Osteoarthritis (OA), Thyroid Disorder Additional Past Medical History / Comment(s): Breast Cancer dx May 2019, had chemo & radiation-completed in December, kidney stones History of Any Multi-Drug Resistant Organisms: None Reported Past Surgical History: Breast Surgery, Orthopedic Surgery Additional Past Surgical History / Comment(s): right knee surg., Right knee arthroscopy x2, left ureteroscopy with laser lithotripsy 06-14-19, right partial mastectomy 2019, port-a-cath insertion Past Anesthesia/Blood Transfusion Reactions: Motion Sickness, Postoperative Nausea & Vomiting (PONV) Smoking Status: Never smoker - Past Family History Father Family Medical History: No Reported History, Coronary Artery Disease (CAD) Additional Family Medical History / Comment(s): at age 82 from coronary artery disease (4 blocked arteries) Mother Family Medical History: No Reported History Additional Family Medical History / Comment(s): at age 90 from heart issues she incurred from Rheumatic Fever as a child. Medications and Allergies Home Medications Medication Instructions Recorded Confirmed Type Levothyroxine Sodium 100 mcg PO QAM 05/04/19 02/06/20 History amLODIPine [Norvasc] 5 mg PO QAM 05/04/19 02/06/20 History ramipriL [Ramipril] 10 mg PO QAM 05/04/19 02/06/20 History Biotin 5,000 mcg PO DAILY 05/09/19 02/05/20 History Cholecalciferol (Vitamin D3) 2,000 units PO DAILY 05/09/19 02/05/20 History [Vitamin D3] Lutein 20 mg PO DAILY 05/09/19 02/05/20 History Exemestane [Aromasin] 25 mg PO QAM 01/04/20 02/05/20 History Acetaminophen-Codeine 300-30mg 1 - 2 tab PO Q4-6H PRN 02/05/20 02/05/20 History [Tylenol w/codeine #3] Ketorolac [Toradol] 10 mg PO Q6HR PRN 02/05/20 02/06/20 History Tamsulosin [Flomax] 0.4 mg PO DAILY 02/05/20 02/05/20 History Ciprofloxacin HCl [Cipro] 500 mg PO Q12HR #20 tablet 02/06/20 Rx Allergies Allergy/AdvReac Type Severity Reaction Status Date / Time cephalexin [From Keflex] AdvReac Nausea & Verified 02/06/20 12:33 Vomiting hydromorphone [From Dilaudid] AdvReac Nausea & Verified 02/06/20 12:08 Vomiting Penicillins AdvReac Nausea & Verified 02/06/20 12:08 Vomiting Surgical - Exam - General well developed, well nourished, no distress - Respiratory normal respiratory effort - Abdomen Abdomen: soft, non tender, no guarding, no rigid, no rebound - Psychiatric oriented to time, oriented to person, oriented to place, speech is normal, memory intact Assessment and Plan (1) Calculus of kidney Status: Acute Code(s): N20.0 - CALCULUS OF KIDNEY SNOMED Code(s): 31069830 (2) Calculus of ureter Status: Acute Code(s): N20.1 - CALCULUS OF URETER SNOMED Code(s): 30604185 Plan: Cystoscopy, left ureteral stent removal, left ureteroscopy with Holmium laser lithotripsy. The patient is aware of potential risks, which include anesthesia, bleeding, infection, and ureteral injury. She is also aware that given the stone burden, 2 procedures may be required to render her stone free.
[2020-02-13 16:31] VITALS: BMI 21.2
[~2020-02-15 08:21] MED LIST changes: -MIDAZOLAM 2 MG/2 ML VIAL IV PRN
--- NOTE | 2020-02-15 08:57 | XR ---
EXAMINATION TYPE: XR KUB DATE OF EXAM: 02/15/2020 COMPARISON: 02/04/2020 HISTORY: Kidney stone TECHNIQUE: Abdomen is examined in supine view FINDINGS: There is a 0.5 cm calcification over the inferior pole left kidney. A 1.6 by 0.9 cm calcif ication transverse dimension is adjacent to a ureteral stent. Psoas margins are normal. Few punctate calcifications may overlie the right kidney. IMPRESSION: 1. Stable renal calcifications. 2. Left ureteral stent.
[2020-02-15] MEDS ORDERED: LIDOCAINE 1% (10MG/ML) FOR IV START INTRADERMA ONE (09:00)
[2020-02-15] MEDS ORDERED: SCOPOLAMINE 1.5MG/72HR PATCH TRANSDERM ONE (09:01)
[2020-02-15] MEDS ORDERED: PHENYLEPHRINE-0.9% NACL SYG 1 MG/10 ML SYRINGE ONE (09:15)
[2020-02-15] MEDS ORDERED: ePHEDrine SULFATE/0.9% NACL/PF 50 MG/5 ML SYRINGE IV ONE (09:15)
[2020-02-15] MEDS ORDERED: GLYCOPYRROLATE 0.2 MG/ML 2 ML VIAL ONE (09:15)
[2020-02-15] MEDS ORDERED: PROPOFOL 10 MG/ML 20 ML VIAL IV ONE (09:15)
[2020-02-15] MEDS ORDERED: MIDAZOLAM 2 MG/2 ML VIAL ONE (09:15)
[2020-02-15] MEDS ORDERED: LIDOCAINE 1% INJ 10MG/ML (20 ML MDV) ONE (09:15)
[2020-02-15] MEDS ORDERED: fentaNYL (PF) 50 MCG/ML 2 ML AMP ONE (09:15)
[2020-02-15] MEDS ORDERED: LACTATED RINGERS 1,000 ML IV ONE (10:10)
[2020-02-15 11:45] VITALS: TEMP 96.5
--- NOTE | 2020-02-15 11:54 | P.OP ---
Date of Procedure: 02/15/20 Preoperative Diagnosis: Left ureteral calculus, left renal calculi Postoperative Diagnosis: Same Procedure(s) Performed: Cystoscopy, left ureteroscopy with Holmium laser lithotripsy, left ureteral stent change Anesthesia: JARENA Surgeon: Candido Veras Estimated Blood Loss (ml): 5 IV fluids (ml): 500 Pathology: none sent Condition: stable Disposition: PACU Indications for Procedure: The patient is a 74-year-old white female with a history of recurrent uro lithiasis. She underwent ureteroscopic removal of a right ureteral calculus in May 2019. She now presents with left flank pain. A KUB x-ray revealed multiple left renal calculi measuring up to 16 mm in size. A urine culture showed Aerococcus urinae. She underwent left ureteral stent insertion, and was found at that time to have a left proximal ureteral calculus. Her UTIs been treated with ciprofloxacin. She now comes for ureteroscopic removal of her calculi. Operative Findings: Left proximal ureteral calculus. 16 mm left upper pole renal calculus. 6 mm le ft lower pole renal calculus. All fragmented. Description of Procedure: The patient was taken to the operating room and placed in the dorsolithotomy position, with legs supported in Otto stirrups. The external genitalia was prepped and draped sterilely. The 30 lens was used to introduce the 21-Malagasy Aleman cystoscopic sheath through the urethra and into the bladder under direct vision. The bladder was examined in its entirety. Both ureteral orifices were normal anatomic location and configuration, and clear urine effluxed from both. No tumors or foreign bodies were seen. It was noted at the time of stent insertion that the distal end of the stent migrated into the distal ureter. The Aleman semirigid ureteroscope was advanced into the bladder, and the left ureteral orifice was cannulated. A run of forceps were unsuccessfully used to grasp the distal end of the stent, but using 3 prong forceps it was possible to grasp the end of the stent and successfully remove it. The semirigid ureteroscope would not reach the left proximal ureteral calculus, so the Aleman MegaHoota flexible ureteroscope was passed into the bladder. The left ureteral orifice was cannulated, and the ureteroscope was slowly advanced up to the left proximal ureteral calculus, which measured approximately 7 mm in size. The 272 micron Holmium laser probe was passed through the ureteroscope, and lithotripsy was performed. As the calculus fragmented, the majority of the calculus refluxed into the kidney. Lithotripsy was completed. The large upper pole calyx was then identified, and lithotripsy was performed. The majority of the calculus was successfully fragmented. The lower pole calculus was identified and fragmented, though incompletely. Visualization at this point was poor, given the abundant stone particles. The Glidewire was passed through the ureteroscope, which was removed. The Glidewire was then backloaded into the cystoscope, which was passed into the bladder. A 26 cm, 6-Malagasy double-J ureteral stent was placed over the wire. Proper stent positioning was verified fluoroscopically and endoscopically. The bladder was emptied and the cystoscope removed. The patient tolerated the procedure well and was taken to the recovery room in stable condition. [facility] [place] Report: Procedure Acuity: Elective Stone Size and Location: 7 mm, left proximal ureter. 16 mm, left upper pole. Ureteral Dilation: No Ureteral Access Sheath Used: No Stone Sent for Analysis: No All Stones/Fragments Were Removed with a Basket: No Complications: No Preoperative Antibiotics Given: Yes Stent Placed: Yes If Stent Placed, Was String Left Attached: No If Stent Placed, When is it to be Removed: 2 weeks Discharge Medications: Toradol, tamsulosin, Detrol LA
[2020-02-15 12:09] VITALS: RESP 16
[2020-02-15] MEDS ORDERED: ONDANSETRON 4 MG/2 ML VIAL ONE (12:34)
[2020-02-15] MEDS ORDERED: ONDANSETRON 4 MG/2 ML VIAL IVP ONE (12:40)
[2020-02-15 13:13] VITALS: BP 116/74; PULSE 78
--- NOTE | 2020-02-15 16:10 | FL ---
Fluoroscopy INDICATION: Pain FINDINGS: Fluoroscopy time: 7 seconds. Images obtained: 1. IMPRESSIONS: 1. Documentation of fluoroscopy.
== END 2020-02-15 14:39 | disposition home or self-care (01) ==
LOC: OR 08:21
PROVIDERS: ATTEND Urology
DX: N20.2 Calculus of kidney with calculus of ureter (principal); C50.919 Malignant neoplasm of unspecified site of unspecified female breast; I10 Essential (primary) hypertension; M19.90 Unspecified osteoarthritis, unspecified site; E07.9 Disorder of thyroid, unspecified; Z88.0 Allergy status to penicillin; Z87.442 Personal history of urinary calculi; Z87.440 Personal history of urinary (tract) infections; Z79.811 Long term (current) use of aromatase inhibitors; Z92.21 Personal history of antineoplastic chemotherapy; Z92.3 Personal history of irradiation; Z98.890 Other specified postprocedural states; Z90.11 Acquired absence of right breast and nipple; Z87.898 Personal history of other specified conditions; Z91.89 Other specified personal risk factors, not elsewhere classified; Z79.890 Hormone replacement therapy; Z79.899 Other long term (current) drug therapy; Z88.1 Allergy status to other antibiotic agents; Z88.5 Allergy status to narcotic agent; Z82.49 Family history of ischemic heart disease and other diseases of the circulatory system
CPT/HCPCS: 74018; 52356; C1758 ×2; C1769; J2250; J1100; J2405; J1956; J2001; J3010; J2370; J2704

== ENCOUNTER → 2020-02-27 | Outpatient (CLI) | payer MEDICARE, OTHER ==
--- NOTE | 2020-02-27 12:33 | BD ---
EXAMINATION TYPE: Axial Bone Density DATE OF EXAM: 02/27/2020 COMPARISON: NONE CLINICAL HISTORY: Postmenopausal female. History of breast cancer. Height: 66.5 IN Weight: 141 LBS RISK FACTORS HISTORY OF: Active: YES Postmenopausal woman: AGE 55 MEDICATIONS: Thyroid Medications: YES Which medication: Levothyroxine How Lon+ YEARS Additional Medications: LEVOTHYROXINE, VIT D, AROMASIN, AMLODIPINE, RAMIPRIL, BIOTIN ,RESTASIS, LUTEI N Additional History: BREAST CANCER WITH CHEMO AND RADIATION EXAM MEASUREMENTS: Bone mineral densitometry was performed using the [employer] System. Bone mineral density as measured about the Lumbar spine is: ----- L1-L4(G/cm2): 0.863 T Score Values are as follows: ----- L2: -3.2 ----- L3: -2.6 ----- L4: -2.5 ----- L1-L4: -2.5 Bone mineral density BASELINE Bone mineral density about the R hip (g/cm2): 0.830 Bone mineral density about the L hip (g/cm2): 0.873 T Score values are as follows: -----R Neck: -1.5 -----L Neck: -1.2 -----R Total: -2.1 -----L Total: -1.8 Bone mineral density BASELINE IMPRESSION: Osteoporosis (T Score less than -2.5). There is increased fracture risk and therapy is usually indicated based on age. Re-Screen 1-2 years. NOTE: T-SCORE=SD OF THE YOUNG ADULT MEAN.
== END | disposition home or self-care (01) ==
LOC: RADBDWWP 09:51
PROVIDERS: ATTEND Internal Medicine Hematology & Oncology
DX: M81.0 Age-related osteoporosis without current pathological fracture (principal); C50.411 Malignant neoplasm of upper-outer quadrant of right female breast; Z79.890 Hormone replacement therapy; Z88.0 Allergy status to penicillin
CPT/HCPCS: 77080

== ENCOUNTER → 2020-02-29 | Outpatient (CLI) | payer MEDICARE, OTHER ==
[2020-02-29 11:22] LABS: Basophils % (A) 1 %; Eosinophils # (A) 0.1 k/uL (0-0.7); Eosinophils % (A) 1 %; HCT 43.6 % (34.0-46.0); HGB 13.4 gm/dL (11.4-16.0); Hypochromasia Slight; Lymphocytes # (A) 0.9 k/uL (1.0-4.8); Lymphocytes % (A) 16 %; MCH 26.8 pg (25.0-35.0); MCHC 30.9 g/dL (31.0-37.0); MCV 86.9 fL (80.0-100.0); Monocytes # (A) 0.3 k/uL (0-1.0); Monocytes % (A) 6 %; Neutrophils # (A) 4.2 k/uL (1.3-7.7); Neutrophils % (A) 75 %; Platelet Count 183 k/uL (150-450); RBC 5.01 m/uL (3.80-5.40); RDW 13.8 % (11.5-15.5); WBC 5.6 k/uL (3.8-10.6)
[2020-02-29 11:25] LABS: Appearance,Urine Cloudy (Clear); Bacteria,Urine Rare /hpf; Bilirubin,Urine Negative (Negative); Blood,Urine Large (Negative); Color,Urine Yellow; Glucose,Urine (UA) Negative (Negative); Ketones,Urine Negative (Negative); Leukocyte Esterase,Urine Large (Negative); Mucus,Urine Rare /hpf; Nitrite,Urine Negative (Negative); Protein,Urine 1+ (Negative); RBC,Urine >182 /hpf (0-5); Specific Gravity,Urine 1.014 (1.001-1.035); Squamous Epithelial Cell,Urine 1 /hpf (0-4); Urobilinogen,Urine <2.0 mg/dL (<2.0); WBC,Urine 61 /hpf (0-5)
[2020-02-29 11:35] LABS: Calcium 9.5 mg/dL (8.4-10.2); Potassium 4.7 mmol/L (3.5-5.1)
== END | disposition home or self-care (01) ==
LOC: LABPAT 09:42
PROVIDERS: ATTEND Urology
DX: Z01.818 Encounter for other preprocedural examination (principal); N20.0 Calculus of kidney; R31.0 Gross hematuria
CPT/HCPCS: 36415; 80048; 81001; 85025; 87086

== ENCOUNTER 2020-03-07 06:16 | Day surgery (SDC) | payer MEDICARE, OTHER ==
--- NOTE | 2020-03-01 18:34 | P.GSHP ---
History of Present Illness H&P Date: 03/01/20 Chief Complaint: Left flank pain The patient is a 74-year-old white female with a history of recurrent urolithiasis. She underwent ureteroscopic removal of a right ureteral calculus in May 2019. She now presents with left flank pain. A KUB x-ray revealed multiple left renal calculi measuring up to 15 mm in size. A urine culture showed Aerococcus urinae. She underwent left ureteral stent insertion, and was found at that time to have a left proximal ureteral calculus. Her UTIs been treated with ciprofloxacin. She then underwent ureteroscopy with laser lithotripsy. The large upper pole calculus was fragmented, and a lower pole calculus was fragmented incompletely. Visualization became impaired, and the ureteral stent was replaced. She now comes for removal of the ureteral stent, along with ureteroscopy and laser lithotripsy of any remaining fragments. - Constitutional Constitutional: Denies chills, Denies fever - Genitourinary (Female) Genitourinary: Reports flank pain, Reports kidney stones Past Medical History Past Medical History: Cancer, Hypertension, Osteoarthritis (OA), Thyroid Disorder Additional Past Medical History / Comment(s): Breast Cancer dx May 2019, had chemo & radiation-completed in December, kidney stones History of Any Multi-Drug Resistant Organisms: None Reported Past Surgical History: Breast Surgery, Orthopedic Surgery Additional Past Surgical History / Comment(s): right knee surg., Right knee arthroscopy x2, left ureteroscopy with laser lithotripsy 06-14-19, right partial mastectomy 2019, port-a-cath insertion Past Anesthesia/Blood Transfusion Reactions: Motion Sickness, Postoperative Nausea & Vomiting (PONV) Smoking Status: Never smoker - Past Family History Father Additional Family Medical History / Comment(s): at age 82 from coronary artery disease (4 blocked arteries) Mother Additional Family Medical History / Comment(s): at age 90 from heart issues she incurred from Rheumatic Fever as a child. Medications and Allergies Home Medications Medication Instructions Recorded Confirmed Type Levothyroxine Sodium 100 mcg PO QAM 05/04/19 02/13/20 History amLODIPine [Norvasc] 5 mg PO QAM 05/04/19 02/13/20 History ramipriL [Ramipril] 10 mg PO QAM 05/04/19 02/13/20 History Biotin 5,000 mcg PO DAILY 05/09/19 02/13/20 History Cholecalciferol (Vitamin D3) 2,000 units PO DAILY 05/09/19 02/13/20 History [Vitamin D3] Lutein 20 mg PO DAILY 05/09/19 02/13/20 History Exemestane [Aromasin] 25 mg PO QAM 01/04/20 02/13/20 History Tamsulosin [Flomax] 0.4 mg PO DAILY 02/05/20 02/13/20 History Ciprofloxacin HCl [Cipro] 500 mg PO Q12HR #20 tablet 02/06/20 02/13/20 Rx Acetaminophen Tab [Tylenol] 650 mg PO Q4H PRN 02/13/20 02/13/20 History Ketorolac [Toradol] 10 mg PO Q6HR #12 tab 02/15/20 Rx Oxybutynin Chloride [Oxybutynin 10 mg PO DAILY #30 tab.er.24 02/15/20 Rx Chloride ER] Tolterodine ER [Detrol LA] 4 mg PO DAILY #30 cap.er.24h 02/15/20 Rx Allergies Allergy/AdvReac Type Severity Reaction Status Date / Time cephalexin [From Keflex] AdvReac Nausea & Verified 02/15/20 08:42 Vomiting hydromorphone [From Dilaudid] AdvReac Nausea & Verified 02/15/20 08:42 Vomiting Penicillins AdvReac Nausea & Verified 02/15/20 08:42 Vomiting Surgical - Exam - General well developed, well nourished, no distress - Respiratory normal respiratory effort - Abdomen Abdomen: soft, non tender, no guarding, no rigid, no rebound - Psychiatric oriented to time, oriented to person, oriented to place, speech is normal, memory intact Assessment and Plan (1) Calculus of kidney Status: Acute Code(s): N20.0 - CALCULUS OF KIDNEY SNOMED Code(s): 58999095 Plan: Cystoscopy, left ureteral stent removal, left ureteroscopy with Holmium laser lithotripsy. The patient is aware of potential risks, which include anesthesia, bleeding, infection, and ureteral injury.
[2020-03-06 10:51] VITALS: BMI 21.9
[~2020-03-07 06:16] MED LIST changes: -DEXAMETHASONE SOD PHOSPHATE 10 MG/ML 1 ML VIAL IV ONE; +DEXAMETHASONE SOD PHOSPHATE 4 MG/ML 1 ML VIAL IV ONE; +LIDOCAINE 1% (10MG/ML) FOR IV START INTRADERMA PRN
--- NOTE | 2020-03-07 07:15 | XR ---
KUB HISTORY: Kidney stones Frontal KUB submitted and correlated to prior exam 02/15/2020 Left-sided double-J stent is in place. Calcification present over the mid pole and lower pole of the left kidney is stable. The calcifications seen on previous exam at the level the proximal double-J st ent is not seen definitively. Multiple calcifications are again noted within the pelvis. IMPRESSION: Left-sided nephrolithiasis. Probable interval lithotripsy.
[2020-03-07] MEDS ORDERED: SCOPOLAMINE 1.5MG/72HR PATCH TRANSDERM ONE (07:20)
[2020-03-07] MEDS ORDERED: MIDAZOLAM 2 MG/2 ML VIAL ONE (07:29)
[2020-03-07] MEDS ORDERED: ePHEDrine SULFATE/0.9% NACL/PF 50 MG/5 ML SYRINGE IV ONE (07:29)
[2020-03-07] MEDS ORDERED: LIDOCAINE 1% INJ 10MG/ML (20 ML MDV) ONE (07:29)
[2020-03-07] MEDS ORDERED: fentaNYL (PF) 50 MCG/ML 2 ML AMP ONE (07:29)
[2020-03-07] MEDS ORDERED: PROPOFOL 10 MG/ML 20 ML VIAL IV ONE (07:29)
[2020-03-07] MEDS ORDERED: SUCCINYLCHOLINE CHLORIDE 100 MG/5 ML SYR IV ONE (07:29)
[2020-03-07 08:41] VITALS: RESP 16
[2020-03-07] MEDS ORDERED: LACTATED RINGERS 1,000 ML IV ONE (09:36)
[2020-03-07 09:56] VITALS: TEMP 97.1
--- NOTE | 2020-03-07 10:14 | P.OP ---
Date of Procedure: 03/07/20 Preoperative Diagnosis: Left renal calculi Postoperative Diagnosis: Same Procedure(s) Performed: Cystoscopy, left ureteroscopy with Holmium laser lithotripsy, left ureteral stent change Anesthesia: GETA Surgeon: Candido Veras Estimated Blood Loss (ml): 0 IV fluids (ml): 900 Pathology: none sent Condition: stable Disposition: PACU Indications for Procedure: The patient is a 74-year-old white female with a history of recurrent urolithiasis. She underwent ureteroscopic removal of a right ureteral calculus in May 2019. She now presents with left flank pain. A KUB x-ray revealed multiple left renal calculi measuring up to 15 mm in size. A urine culture showed Aerococcus urinae. She underwent left ureteral stent insertion, and was found at that time to have a left proximal ureteral calculus. Her UTIs been treated with ciprofloxacin. She then underwent ureteroscopy with laser lithotripsy. The large upper pole calculus was fragmented, and a lower pole calculus was fragmented incompletely. Visualization became impaired, and the ureteral stent was replaced. She now comes for repeat ureteroscopy and laser lithotripsy of any remaining fragments. Operative Findings: Multiple residual calculus fragments within proximal ureter and left upper pole calyx. Mid pole calculus within calyceal diverticulum, fragmented completely. Lower pole calculus, fragmented completely. Description of Procedure: The patient was taken to the operating room and placed in the dorsolithotomy position, with legs supported in Otto stirrups. The external genitalia was prepped and draped sterilely. The 30 lens was used to introduce the 21-Congolese Aleman cystoscopic sheath through the urethra and into the bladder under direct vision. The distal end of the left ureteral stent was grasped and removed along with the cystoscope. The Aleman Boa flexible ureteroscope was passed into the bladder. The left ureteral orifice was cannulated, and the ureteroscope was slowly advanced up to the left proximal ureteral calculus, with 2 calculi were identified. The 272 micron Holmium laser probe was passed through the ureteroscope, and lithotripsy was performed. As the calculus fragmented, a portion of the larger calculus refluxed into the left renal pelvis where lithotripsy was completed. The left upper pole calyx was identified, and lithotripsy was performed to treat several large residual calculus fragments. Initially, a dusting technique was utilized, and subsequently a fragmenting technique with popcorning.. The majority of the calculus was successfully fragmented. The lower pole calculus was identified and fragmented completely. A 6 mm mid pole calculus was seen within a calyceal diverticulum, and this was fragmented completely. Visualization at this point was poor, given the abundant stone particles. The Glidewire was passed through the ureteroscope, which was removed. The Glidewire was then backloaded into the cystoscope, which was passed into the bladder. A 26 cm, 6-Congolese double-J ureteral stent was placed over the wire. Proper stent positioning was verified fluoroscopically and endoscopically. The bladder was emptied and the cystoscope removed. The patient tolerated the procedure well and was taken to the recovery room in stable condition. [facility] Report: Procedure Acuity: Elective Stone Size and Location: 5 mm, left mid pole. 4 mm, left lower pole. 6 mm, left proximal ureter. Ureteral Dilation: No Ureteral Access Sheath Used: No Stone Sent for Analysis: No All Stones/Fragments Were Removed with a Basket: No Complications: No Preoperative Antibiotics Given: Yes Stent Placed: Yes If Stent Placed, Was String Left Attached: No If Stent Placed, When is it to be Removed: 2 weeks Discharge Medications: Toradol, tamsulosin, Detrol LA
--- NOTE | 2020-03-07 10:25 | FL ---
Fluoroscopy HISTORY: Renal stones, stent exchange 5 seconds fluoroscopy time supplied to the referring clinician. 1 intraoperative C-arm images docume nt the procedure. See dictated report from urology.
[2020-03-07 10:55] VITALS: BP 114/66; PULSE 78
== END 2020-03-07 11:15 | disposition home or self-care (01) ==
LOC: OR 06:16
PROVIDERS: ATTEND Urology
DX: Z46.6 Encounter for fitting and adjustment of urinary device (principal); N20.2 Calculus of kidney with calculus of ureter; N28.89 Other specified disorders of kidney and ureter; C50.919 Malignant neoplasm of unspecified site of unspecified female breast; Z87.442 Personal history of urinary calculi; I10 Essential (primary) hypertension; M19.90 Unspecified osteoarthritis, unspecified site; E07.9 Disorder of thyroid, unspecified; Z92.21 Personal history of antineoplastic chemotherapy; Z92.3 Personal history of irradiation; Z90.11 Acquired absence of right breast and nipple; Z98.890 Other specified postprocedural states; Z95.828 Presence of other vascular implants and grafts; Z82.49 Family history of ischemic heart disease and other diseases of the circulatory system; Z79.1 Long term (current) use of non-steroidal anti-inflammatories (NSAID); Z79.890 Hormone replacement therapy; Z79.899 Other long term (current) drug therapy; Z79.811 Long term (current) use of aromatase inhibitors; Z88.1 Allergy status to other antibiotic agents; Z88.5 Allergy status to narcotic agent; Z88.0 Allergy status to penicillin
CPT/HCPCS: 74018; 52356; C1769; C1758; J2250; J1100; J2405; J1956; J2001; J3010; J0330; J2704

== ENCOUNTER 2020-03-19 11:59 | Day surgery (SDC) | payer MEDICARE, OTHER ==
--- NOTE | 2020-03-13 10:59 | P.GSHP ---
History of Present Illness H&P Date: 03/13/20 Chief Complaint: Left renal calcluli The patient is a 74-year-old white female with a history of recurrent urolithiasis. She underwent ureteroscopic removal of a right ureteral calculus in May 2019. She now presents with left flank pain. A KUB x-ray revealed multiple left renal calculi measuring up to 15 mm in size. A urine culture showed Aerococcus urinae. She underwent left ureteral stent insertion, and was found at that time to have a left proximal ureteral calculus. Her UTIs been treated with ciprofloxacin. She then underwent ureteroscopy with laser lithotripsy on 2 occasions and now comes for removal of the ureteral stent, along with ureteroscopy and laser lithotripsy of any remaining fragments. - Constitutional Constitutional: Denies chills, Denies fever - Genitourinary (Female) Genitourinary: Reports as per HPI Past Medical History Past Medical History: Cancer, Hypertension, Osteoarthritis (OA), Thyroid Disorder Additional Past Medical History / Comment(s): Breast Cancer dx May 2019, had chemo & radiation-completed in December, kidney stones History of Any Multi-Drug Resistant Organisms: None Reported Past Surgical History: Breast Surgery, Orthopedic Surgery Additional Past Surgical History / Comment(s): right knee surg., Right knee arthroscopy x2, left ureteroscopy with laser lithotripsy 06-14-19, right partial mastectomy 2019, port-a-cath insertion Past Anesthesia/Blood Transfusion Reactions: Motion Sickness, Postoperative Nausea & Vomiting (PONV) Smoking Status: Never smoker - Past Family History Father Family Medical History: No Reported History, Coronary Artery Disease (CAD) Additional Family Medical History / Comment(s): at age 82 from coronary artery disease (4 blocked arteries) Mother Family Medical History: No Reported History Additional Family Medical History / Comment(s): at age 90 from heart issues she incurred from Rheumatic Fever as a child. Medications and Allergies Home Medications Medication Instructions Recorded Confirmed Type Levothyroxine Sodium 100 mcg PO QAM 05/04/19 03/07/20 History amLODIPine [Norvasc] 5 mg PO QAM 05/04/19 03/07/20 History ramipriL [Ramipril] 10 mg PO QAM 05/04/19 03/07/20 History Biotin 5,000 mcg PO DAILY 05/09/19 03/07/20 History Cholecalciferol (Vitamin D3) 2,000 units PO DAILY 05/09/19 03/07/20 History [Vitamin D3] Lutein 20 mg PO DAILY 05/09/19 03/07/20 History Exemestane [Aromasin] 25 mg PO QAM 01/04/20 03/07/20 History Acetaminophen Tab [Tylenol] 650 mg PO Q4H PRN 02/13/20 03/07/20 History Oxybutynin Chloride [Oxybutynin 10 mg PO DAILY #30 tab.er.24 02/15/20 03/07/20 Rx Chloride ER] Allergies Allergy/AdvReac Type Severity Reaction Status Date / Time cephalexin [From Keflex] AdvReac Nausea & Verified 03/07/20 06:57 Vomiting hydromorphone [From Dilaudid] AdvReac Nausea & Verified 03/07/20 06:57 Vomiting Penicillins AdvReac Nausea & Verified 03/07/20 06:57 Vomiting Surgical - Exam - General well developed, well nourished, no distress - Respiratory normal respiratory effort - Abdomen Abdomen: soft, non tender, no guarding, no rigid, no rebound - Psychiatric oriented to time, oriented to person, oriented to place, speech is normal, memory intact Assessment and Plan (1) Calculus of kidney Status: Acute Code(s): N20.0 - CALCULUS OF KIDNEY SNOMED Code(s): 21752675 Plan: Cystoscopy, left ureteral stent removal, left ureteroscopy with Holmium laser lithotripsy. The patient is aware of potential risks, which include anesthesia, bleeding, infection, and ureteral injury.
[2020-03-18 08:21] VITALS: BMI 22.8
[~2020-03-19 11:59] MED LIST changes: -DEXAMETHASONE SOD PHOSPHATE 4 MG/ML 1 ML VIAL IV ONE; -LIDOCAINE 1% (10MG/ML) FOR IV START INTRADERMA PRN
--- NOTE | 2020-03-19 12:18 | XR ---
EXAMINATION TYPE: XR KUB DATE OF EXAM: 03/19/2020 COMPARISON: 03/07/2020 INDICATION: Kidney stone presurgical evaluation TECHNIQUE: Single view abdomen supine position FINDINGS: There is a normal bowel gas pattern. Psoas margins are normal. No organomegaly is present. Scattered punctate densities are within the right renal shadow may be tiny calcifications. Similar ap pearing punctate calcifications over the left renal shadow. A left ureteral stent is present. Previou s larger left renal calcifications are not identified. IMPRESSION: 1. Punctate bilateral renal stones
[2020-03-19] MEDS ORDERED: DEXAMETHASONE SOD PHOSPHATE 4 MG/ML 1 ML VIAL IVP ONE (12:40)
[2020-03-19] MEDS ORDERED: SCOPOLAMINE 1.5MG/72HR PATCH TRANSDERM ONE (12:40)
[2020-03-19] MEDS ORDERED: fentaNYL (PF) 50 MCG/ML 2 ML AMP ONE (13:46)
[2020-03-19] MEDS ORDERED: PROPOFOL 10 MG/ML 20 ML VIAL IV ONE (13:46)
[2020-03-19] MEDS ORDERED: PHENYLEPHRINE-0.9% NACL SYG 1 MG/10 ML SYRINGE ONE (13:46)
[2020-03-19] MEDS ORDERED: LIDOCAINE 1% INJ 10MG/ML (20 ML MDV) ONE (13:46)
[2020-03-19] MEDS ORDERED: MIDAZOLAM 2 MG/2 ML VIAL ONE (13:46)
[2020-03-19] MEDS ORDERED: SUCCINYLCHOLINE CHLORIDE 100 MG/5 ML SYR IV ONE (13:46)
[2020-03-19] MEDS ORDERED: ePHEDrine SULFATE/0.9% NACL/PF 50 MG/5 ML SYRINGE IV ONE (13:46)
[2020-03-19] MEDS ORDERED: LACTATED RINGERS 1,000 ML IV ONE (15:21)
[2020-03-19 15:37] VITALS: TEMP 97
--- NOTE | 2020-03-19 15:41 | P.OP ---
Date of Procedure: 03/19/20 Preoperative Diagnosis: Left renal calculi Postoperative Diagnosis: Same Procedure(s) Performed: Cystoscopy, left ureteral stent removal, left ureteroscopy with Holmium laser lithotripsy and stone basketing Anesthesia: JOMAR Surgeon: Candido Veras Estimated Blood Loss (ml): 0 IV fluids (ml): 800 Pathology: none sent Condition: stable Disposition: PACU Indications for Procedure: The patient is a 74-year-old white female with a history of recurrent urolit hiasis. She underwent ureteroscopic removal of a right ureteral calculus in May 2019. She now presents with left flank pain. A KUB x-ray revealed multiple left renal calculi measuring up to 15 mm in size. A urine culture showed Aerococcus urinae. She underwent left ureteral stent insertion, and was found at that time to have a left proximal ureteral calculus. Her UTIs been treated with ciprofloxacin. She then underwent ureteroscopy with laser lithotripsy on 2 occasions and now comes for removal of the ureteral stent, along with ureteroscopy and laser lithotripsy of any remaining fragments. Operative Findings: Several residual calculus fragments, all fragmented completely. Description of Procedure: The patient was taken to the operating room and placed in the dorsolithotomy position, with legs supported in Otto stirrups. The external genitalia was prepped and draped sterilely. The 30 lens was used to introduce the 21-Vietnamese Aleman cystoscopic sheath through the urethra and into the bladder under direct vision. The bladder was examined in its entirety. Both ureteral orifices were normal anatomic location and configuration, and clear urine effluxed from both. No tumors or foreign bodies were seen. It was noted at the time of stent insertion that the distal end of the stent migrated into the distal ureter. The Aleman semirigid ureteroscope was advanced into the bladder, and the left ureteral orifice was cannulated. Grasping forceps were used to grasp the distal end of the stent, which was removed along with the cystoscope. The Aleman Cobra flexible ureteroscope was passed into the bladder. The left ureteral orifice was cannulated, and the ureteroscope was slowly advanced up the left ureter under direct vision, up to the left renal pelvis. No calculi were seen within the ureter. Each calyx was examined. Calculus fragments too large to pass were found within an upper pole calyx and a lower pole calyx. The 200 micron Holmium laser probe was passed through the ureteroscope, and lithotripsy was performed. Each calculus fragment was broken up, leaving no residual calculus fragments exceeding 1-2 mm in size. The lower pole calculus was relocated into an upper pole calyx to expedite this process. Essentially all of the residual calculus fragments at this time were within an upper pole calyx, and popcorninge was performed to leave these calculus fragments as small as possible. The ureteroscope was then slowly withdrawn under direct vision. There was no evidence of ureteral trauma, and no calculi were seen within the ureter. The patient tolerated the procedure well and was taken to the recovery room in stable condition. [facility] [place] Report: Procedure Acuity: Elective Stone Size and Location: Small residual renal calculus fragments Ureteral Dilation: No Ureteral Access Sheath Used: No Stone Sent for Analysis: No All Stones/Fragments Were Removed with a Basket: No Complications: No Preoperative Antibiotics Given: Yes Stent Placed: No Discharge Medications: Toradol, tamsulosin, Detrol LA
--- NOTE | 2020-03-19 15:55 | FL ---
Fluoroscopy INDICATION: Pain FINDINGS: Images obtained: 1. IMPRESSIONS: 1. Documentation of fluoroscopy.
[2020-03-19 16:26] VITALS: RESP 16
[2020-03-19] MEDS ORDERED: ONDANSETRON 4 MG/2 ML VIAL IVP ONE (16:28)
[2020-03-19] MEDS ORDERED: ONDANSETRON 4 MG/2 ML VIAL ONE (16:30)
[2020-03-19 16:55] VITALS: BP 96/52; PULSE 65
== END 2020-03-19 17:35 | disposition home or self-care (01) ==
LOC: OR 11:59
PROVIDERS: ATTEND Urology
DX: N20.0 Calculus of kidney (principal); I10 Essential (primary) hypertension; M19.90 Unspecified osteoarthritis, unspecified site; B96.89 Other specified bacterial agents as the cause of diseases classified elsewhere; E07.9 Disorder of thyroid, unspecified; Z85.3 Personal history of malignant neoplasm of breast; Z92.21 Personal history of antineoplastic chemotherapy; Z92.3 Personal history of irradiation; Z87.442 Personal history of urinary calculi; Z90.11 Acquired absence of right breast and nipple; Z95.828 Presence of other vascular implants and grafts; Z82.49 Family history of ischemic heart disease and other diseases of the circulatory system; Z79.811 Long term (current) use of aromatase inhibitors; Z79.890 Hormone replacement therapy; Z79.899 Other long term (current) drug therapy; Z88.1 Allergy status to other antibiotic agents; Z88.5 Allergy status to narcotic agent; Z88.0 Allergy status to penicillin
CPT/HCPCS: 74018; 52352; C1769; J2250; J1100; J2405; J1956; J2001; J3010; J2370; J0330; J2704

== ENCOUNTER → 2020-04-15 | Outpatient (CLI) | payer MEDICARE, OTHER ==
--- NOTE | 2020-04-16 09:58 | MM ---
Reason for exam: follow-up at short interval from prior study. Last mammogram was performed 4 months ago. History: Patient is postmenopausal and has history of breast cancer at age 73. Benign US biopsy breast VAD RT of the right breast, September 22, 2019. Benign US biopsy breast add'l VAD RT of the right breast, September 22, 2019. Malignant MG pre op needle loc RT of the right breast, June 07, 2019. Lumpectomy of the right breast, June 07, 2019. Malignant US biopsy breast VAD RT of the right breast, May 15, 2019. Taking antineoplastic beginning at age 73. Physical Findings: Nurse Summary: 1.5cm nodule in the right breast at 11 o'clock (nurse dw). MG 3D Diag Mammo W/Cad YULIYA Bilateral CC and MLO view(s) were taken. Prior study comparison: December 25, 2019, right breast MG 3d diag mammo w/cad RT. September 22, 2019, right breast MG diagnostic mammo RT wo CAD. The breast tissue is heterogeneously dense. This may lower the sensitivity of mammography. Right lumpectomy changes. Probable traumatic oil cyst upper outer right breast. These results were verbally communicated with the patient and result sheet given to the patient on 04/15/20. ASSESSMENT: Incomplete: need additional imaging evaluation, BI-RAD 0 RECOMMENDATION: Ultrasound of the right breast. Manage patient on a clinical basis.
--- NOTE | 2020-04-16 10:01 | USB ---
Reason for exam: additional evaluation requested from abnormal screening. History: Patient is postmenopausal and has history of breast cancer at age 73. Benign US biopsy breast VAD RT of the right breast, September 22, 2019. Benign US biopsy breast add'l VAD RT of the right breast, September 22, 2019. Malignant MG pre op needle loc RT of the right breast, June 07, 2019. Lumpectomy of the right breast, June 07, 2019. Malignant US biopsy breast VAD RT of the right breast, May 15, 2019. Taking antineoplastic beginning at age 73. US Breast RT Right complete breast ultrasound includes all four quadrants, the retroareolar region and axilla. Finding demonstrates a 1.3 x 1.8 x 0.5cm oval, irregular, hypoechoic lesion at 12 o'clock, a 1.5 x 2.2 x 1.3cm oval, irregular, cluster, mixed, solid lesion at 12 o'clock, a 0.9 x 1.1 x 0.8cm oval, mixed lesion at 1 o'clock and a hyperechoic calcifications at the posterior nipple. These results were verbally communicated with the patient and result sheet given to the patient on 04/15/20. ASSESSMENT: Probably benign, BI-RAD 3 RECOMMENDATION: Surgical consultation of the right breast. Called office with mammographic findings and has scheduled an appointment for the patient for 04/19/20 at 1:[address] Hairston. PRELIMINARY REPORT CALLED AND FAXED TO DR. HAIRSTON ON 04/16/20.
== END | disposition home or self-care (01) ==
LOC: RADMAMWWP 12:50
PROVIDERS: ATTEND Surgery
DX: R92.8 Other abnormal and inconclusive findings on diagnostic imaging of breast (principal)
CPT/HCPCS: 77066; 76641; G0279; 77062

== ENCOUNTER → 2020-04-19 | Outpatient (CLI) | payer MEDICARE, OTHER ==
--- NOTE | 2020-04-19 14:47 | P.PN ---
Subjective Progress Note Date: 04/19/20 Principal diagnosis: stage 1A right breast cancer stage Ia right breast cancer, invasive ductal The patient is a 74 year old white female who had a routine mammogram of the right breast on 04-10-19. After this it was recommended she undergo a diagnostic right breast mammogram and ultrasound. On the ultrasound she was noted to have a 0.4 x 0.3 cm oval lesion in the upper outer quadrant region. The patient had an ultrasound-guided core biopsy on . This revealed invasive ductal carcinoma grade 2 and high-grade DCIS. This was ER positive WI negative HER-2 positive. She underwent a lumpectomy and sentinel node biopsy on 2519. 9 lymph nodes were removed which were negative for metastatic tumor. In the lumpectomy revealed a 5 x 3 mm moderately differentiated invasive ductal carcinoma. All margins were negative. She underwent adjuvant Taxol and Herceptin. And she then underwent adjuvant radiation therapy. She is now on Aromisin and is still taking Herceptin. This should finish in August. The tumor was a T1 1 N0 M0 stage IA. She has no complaints of any nipple discharge or skin changes. She has no history of any recent trauma or infection in the breast. She has persistent palpable changes in the right breast near the area of the lumpectomy. She is presently on Aromasin. She states that she feels pain in her ankles knees and hips, and will follow with medical oncology with respect to this. She underwent an ultrasound in August secondary to some palpable changes in the right breast which resulted in a core biopsy of 2 sites in the right breast. Both of these were consistent with fat necrosis. She was scheduled to have a total knee replacement however this has been put on hold at the present time until her kidneys are treated. She had a mammogram of the right breast on . The breast tissue is heterogeneously dense. There are postsurgical and post-therapeutic changes with areas of distortion noted on the radiograph. This was felt to be BIRADS 3 and repeat mammogram in 4 months of both breast. She had a bilateral mammogram on 04-15-20. No lesions of concern were noted in the left breast, a right breast ultrasound was recommended. The right breast ultrasound was done on 04-15-20 and this had a lesion in the 12 oclock position zone A which was considered of concern. She continues to feel fulness in the right breast in the 12 oclock position. She has had a biopsy of this area which showed fat necrosis. It does not seem to be changing as per the patient. She has had multiple kidney surgeries related to stones, 6 procedures in the last year. With the most recent procedures she did not fill well postprocedure and therefore the Herceptin was held for the month of April. She was started again in May. On April 29 she is having further kidney radiographs. Family history: negative Hormonal History: menarche: 13 , 1 miscarriage, breast fed: yes, first born at 30 menopause: 55 BCP: 3 days hormones: none Past Surgical History: 1. 3 surgeries on right knee 2. ablation uterine 3. Percutaneous lumbar discectomy 4. kidney stones/ stent placed and removed 6 procedures on your kidneys 5. right breast lumpectomy and SNB Medical history: none Social History: smoke: none alcohol: none drugs: none - Constitutional Constitutional: Reports sweats - EENT Eyes: denies blurred vision, denies pain Ears: deny: decreased hearing, tinnitus Ears, nose, mouth and throat: Reports headache, Denies sore throat - Breasts Breasts: bilateral: as per HPI - Cardiovascular Cardiovascular: Reports high blood pressure, Denies chest pain, Denies shortness of breath - Respiratory Respiratory: Denies cough - Gastrointestinal Gastrointestinal: Denies abdominal pain, Denies diarrhea, Denies nausea, Denies vomiting - Genitourinary (Female) Genitourinary: Reports kidney stones - Menstruation Menstruation: Reports postmenopausal - Musculoskeletal Comment: right knee osetoarthritis - Integumentary Integumentary: Denies pruritus, Denies rash - Neurological Neurological: Denies numbness, Denies weakness - Psychiatric Psychiatric: Denies anxiety, Denies depression - Endocrine Comment: hypothyroid Endocrine: Denies fatigue, Denies weight change - Hematologic/Lymphatic Comment: none - Allergic/Immunologic Allergic/Immunologic: Reports as per HPI Objective - Vital Signs Vital signs: Vital Signs Temp 97.3 F L 04/19/20 13:44 Pulse 82 04/19/20 13:44 Resp 18 04/19/20 13:44 BP 122/82 04/19/20 13:44 Pulse Ox 99 04/19/20 13:44 Intake & Output 04/18/20 04/19/20 04/19/20 18:59 06:59 18:59 Weight 63.503 kg - Exam BMI 21.9 - Constitutional General appearance: Present: average body habitus - EENT Eyes: Present: EOMI ENT: Present: hearing grossly normal - Neck Neck: Present: normal ROM - Respiratory Respiratory: bilateral: CTA - Cardiovascular Rhythm: regular Heart sounds: normal: S1, S2 - Gastrointestinal General gastrointestinal: Present: normal bowel sounds, soft - Integumentary Integumentary: Present: normal turgor - Musculoskeletal Musculoskeletal: Present: gait normal - Psychiatric Psychiatric: Present: A&O x's 3, appropriate affect, intact judgment & insight - Additional findings Additional findings: breast exam: BRA: 34C inspection: right breast smaller than the left breast palpation: right breast: Positional exam reveals an area of increased fullness at the 12 o'clock position which has had core biopsy performed in the past significant with fat necrosis there is no change otherwise patient has postoperative changes and radiation changes but no other dominant masses or nodules of concern Right axilla: No adenopathy of concern left breast: Multiple positional exam fibrocystic changes, no dominant masses or nodules of concern Left axilla: No adenopathy of concern Port-A-Cath in place right chest wall Assessment and Plan Assessment: Impression: 1. stage Ia right breast cancer, at lumpectomy site core biopsy reveaed fat necrosis in September 2019 fat necrosis 2. kidney stones 3. osteoarthritis 4. Questionable change right breast on ultrasound performed on , this was reviewed in detail with Dr. Collado the area of concern he feels may dissipate if the ultrasound is repeated and this is going to be repeated this afternoon Plan: 1. Repeat right breast ultrasound with attention to the 12:00 zonate area 2. Continue anastrozole 3. Continue Herceptin 4. Treatment for kidney stones 5. When medically stable knee replacement Cc: Dr. Holt encounter 20 minutes, > 50% of time in planning and counselling
== END | disposition home or self-care (01) ==
DX: Z53.9 Procedure and treatment not carried out, unspecified reason (principal)

== ENCOUNTER → 2020-04-19 | Outpatient (CLI) | payer MEDICARE, OTHER ==
--- NOTE | 2020-04-22 08:54 | USB ---
Reason for exam: clinical finding. History: Patient is postmenopausal and has history of breast cancer at age 73. Benign US biopsy breast VAD RT of the right breast, September 22, 2019. Benign US biopsy breast add'l VAD RT of the right breast, September 22, 2019. Malignant MG pre op needle loc RT of the right breast, June 07, 2019. Lumpectomy of the right breast, June 07, 2019. Malignant US biopsy breast VAD RT of the right breast, May 15, 2019. Taking antineoplastic beginning at age 73. Physical Findings: Breast exam performed by Dr. Hairston. US Breast Limited RT Right limited breast ultrasound including focal area of concern, retroareolar and axilla demonstrates fluid like channels in soft tissue. Recent cyst aspiration. Consider short term follow up ultrasound. These results were verbally communicated with the patient and result sheet given to the patient on 04/19/20. ASSESSMENT: Probably benign, BI-RAD 3 RECOMMENDATION: Ultrasound of the right breast in 3 months.
== END | disposition home or self-care (01) ==
LOC: RADUSWWP 14:50
PROVIDERS: ATTEND Surgery
DX: Z08 Encounter for follow-up examination after completed treatment for malignant neoplasm (principal); R92.8 Other abnormal and inconclusive findings on diagnostic imaging of breast; Z85.3 Personal history of malignant neoplasm of breast

== ENCOUNTER → 2020-04-29 | Outpatient (CLI) | payer MEDICARE, OTHER ==
--- NOTE | 2020-04-29 09:58 | US ---
EXAMINATION TYPE: US kidneys/renal and bladder DATE OF EXAM: 04/29/2020 COMPARISON: US July [address] May 27, 2019. CLINICAL HISTORY: N20.0 kidney stone; N20.1 Ureteral stone. History of kidney stones EXAM MEASUREMENTS: Right Kidney: 10.0 x 4.2 x 4.8 cm Left Kidney: 9.4 x 4.4 x 4.1 cm Right Kidney: 1.6 x 1.8 x 1.4cm cyst inferior pole, 0.5cm echogenic focus superior pole with multiple tiny scattered echogenic foci throughout, mild hydronephrosis Left Kidney: 3.7 x 3.5 x 4.8cm cyst superior pole, 0.7cm echogenic focus inferior pole with multiple tiny scattered echogenic foci throughout, moderate hydronephrosis Bladder: anechoic Bilateral Jets seen: yes Background increased cortical echogenicity and scattered thin-walled cysts bilaterally consistent wit h product of chronic medical renal disease. Right kidney shows mild pyelocaliectasis with prominent renal pelvis on current study. Several small nonobstructing renal calculi redemonstrated. Bilateral distal ureter jets seen. Moderate left-sided hydronephrosis felt present with more prominent pyelocaliectasis currently. IMPRESSION: Several nonobstructing small bilateral renal calculi redemonstrated. Mild right-sided and moderate left-sided hydronephrosis currently but visualized bilateral distal ureter jets are noted.
--- NOTE | 2020-04-29 10:00 | XR ---
EXAMINATION TYPE: XR KUB DATE OF EXAM: 04/29/2020 9:48 AM CLINICAL HISTORY: Abdominal pain. Recent kidney stone. TECHNIQUE: Two Upright KUB images of the abdomen are obtained. COMPARISON: Abdominal x-ray March 19, 2020. CT abdomen and pelvis May 27, 2019 FINDINGS: Interval removal of left-sided double-J ureter stent. Tiny bilateral renal calculi redemons trated. Indication over pubic symphysis corresponding to uterine fibroid calcifications. Overall nonobstructive bowel gas pattern. Moderate axial joint space loss in both hips. IMPRESSION: As above.
== END | disposition home or self-care (01) ==
LOC: RADUSWWP 08:56
PROVIDERS: ATTEND Urology
DX: N13.2 Hydronephrosis with renal and ureteral calculous obstruction (principal)
CPT/HCPCS: 74018; 76770

== ENCOUNTER → 2020-05-09 | Outpatient (CLI) | payer MEDICARE, OTHER ==
--- NOTE | 2020-05-09 12:50 | CT ---
EXAMINATION TYPE: CT abdomen pelvis wo con DATE OF EXAM: 05/09/2020 COMPARISON: 05/27/2019 HISTORY: Kidney stones CT DLP: 730 mGycm Automated exposure control for dose reduction was used. TECHNIQUE: Helical acquisition of images was performed from the lung bases through the pelvis. FINDINGS: LUNG BASES: Lung bases demonstrate linear changes most typical of atelectasis or scarring. The left c ardiophrenic angle there is a short axis soft tissue nodule likely related to lymph node measuring 6 mm compatible shotty adenopathy. Heart mildly prominent.. LIVER/GB: Gallbladder appears to BE distended with multiple septations and borderline wall thickening . No gallstones. PANCREAS: No significant abnormality is seen. SPLEEN: No significant abnormality is seen. ADRENALS: No significant abnormality is seen. KIDNEYS: Right kidney there is no hydronephrosis. There is a hypodense lesion involving the lower pole the rig ht kidney measuring 1 cm and 4 Hounsfield units compatible with simple cyst. There are 10-15 punctate less than 5 mm renal calculi. Left kidney: There is a larger mass within the anterior margin of the left kidney measuring 6 Hounsfi eld units and 4.5 cm compatible with a simple cyst. There are approximately 10-15 calcifications with in the left kidney all measuring less than 5 mm with no hydronephrosis. ADENOPATHY: None visualized. OSSEOUS STRUCTURES: There is a grade 1 anterolisthesis L4 and L5 with multilevel facet arthropathy a nd degenerative changes. 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 Findings sta ble. There is anterior cortical thinning secondary to a large Tarlov cyst of the sacrum. BOWEL: Nonspecific gas pattern with no evidence of obstruction. OTHER: Calcified uterine fibroids with lobulation of the uterus noted be correlated with ultrasound a s clinically warranted. Findings similar to prior exam. Small fat-containing periumbilical hernia IMPRESSION: 1. Numerous bilateral nonobstructing renal cysts. 2. Gallbladder somewhat distended with borderline thickening to the wall. No gallstones. If the patie nt is having right upper quadrant pain correlate with right upper quadrant ultrasound.
== END | disposition home or self-care (01) ==
LOC: RADCTMAIN 09:54
PROVIDERS: ATTEND Urology
DX: N28.1 Cyst of kidney, acquired (principal); K82.8 Other specified diseases of gallbladder; Z88.0 Allergy status to penicillin; Z88.5 Allergy status to narcotic agent
CPT/HCPCS: 74176

== ENCOUNTER → 2020-06-18 | Outpatient (CLI) | payer MEDICARE, OTHER ==
--- NOTE | 2020-06-18 15:39 | ECHOF ---
Referral Reason:Z01.818 Chemo Exposure MEASUREMENTS -------- HEIGHT: 170.2 cm WEIGHT: 63.5 kg BP: IVSd: 0.9 cm (0.6 - 1.1) LVIDd: 4.4 cm (3.9 - 5.3) LVPWd: 1.1 cm (0.6 - 1.1) EDV(Teich): 87 ml IVSs: 1.1 cm LVIDs: 4.1 cm LVPWs: 0.9 cm %IVS Thck: 18 % ESV(Teich): 73 ml EF(Teich): 15 % %FS: 7 % SV(Teich): 13 ml LA Diam: 4.4 cm (2.7 - 3.8) RVIDd: 2.9 cm (< 3.3) LALs A4C: 5.5 cm LAAs A4C: 21.4 cm LAESV A-L A4C: 71 ml LAESV MOD A4C: 66 ml LALs A2C: 5.9 cm LAAs A2C: 22.5 cm LAESV A-L A2C: 73 ml LAESV MOD A2C: 70 ml LAESV(A-L): 75 ml LAESV Index (A-L): 42.83 ml/m Ao Diam: 3.1 cm (2.0 - 3.7) LA Diam: 4.7 cm (2.7 - 3.8) AV Cusp: 1.7 cm (1.5 - 2.6) EPSS: 0.4 cm AR Vmax: 4.41 m/s AR maxP.88 mmHg AR PHT: 422 ms AR Dec Time: 1456 ms AR Dec [place]: 3.0 m/s TR Vmax: 3.21 m/s TR maxP.14 mmHg RAP: 5.00 mmHg RVSP: 46.14 mmHg MV EF SLOPE: 84.18 mm/s (70 - 150) MV EXCURSION: 21.17 mm (> 18.000) FINDINGS -------- Atrial fibrillation. This was a technically good study. LV size, wall thickness and systolic function are normal, with an EF greater than 55%. The left haim tricular size is normal. The right ventricle is normal in size. LA is severely dilated >40 ml/m2 The right atrial size is normal. There is mild aortic regurgitation. The mitral valve leaflets are mildly thickened. Mild mitral annular calcification present. Modera [id number] mitral regurgitation is present. Moderate tricuspid regurgitation present. There is moderate pulmonary hypertension. The right haim tricular systolic pressure, as measured by Doppler, is 46.14mmHg. Trace/mild (physiologic) pulmonic regurgitation. The aortic root size is normal. There is no pericardial effusion. CONCLUSIONS -------- 1. LV size, wall thickness and systolic function are normal, with an EF greater than 55%. 2. The left ventricular size is normal. 3. The right ventricle is normal in size. 4. LA is severely dilated >40 ml/m2 5. The right atrial size is normal. 6. There is mild aortic regurgitation. 7. The mitral valve leaflets are mildly thickened. 8. Mild mitral annular calcification present. 9. [id number] mitral regurgitation is present. 10. Moderate tricuspid regurgitation present. 11. There is moderate pulmonary hypertension. 12. The right ventricular systolic pressure, as measured by Doppler, is 46.14mmHg. 13. Trace/mild (physiologic) pulmonic regurgitation. 14. The aortic root size is normal. 15. There is no pericardial effusion. BUSINESS STRATEGY MANAGER: Blanka Alanis RDCS
== END | disposition home or self-care (01) ==
LOC: RADECHMAIN 13:51
PROVIDERS: ATTEND Internal Medicine Hematology & Oncology
DX: Z01.818 Encounter for other preprocedural examination (principal); I08.3 Combined rheumatic disorders of mitral, aortic and tricuspid valves; I37.1 Nonrheumatic pulmonary valve insufficiency; I27.20 Pulmonary hypertension, unspecified; Z88.0 Allergy status to penicillin
CPT/HCPCS: 93306

== ENCOUNTER → 2020-07-09 | Day surgery (SDC) | payer MEDICARE, OTHER ==
[2020-07-03 12:41] VITALS: BMI 21.9
[~2020-07-09] MED LIST changes: +DILTIAZEM CD 120 MG CAP.ER.24H PO SCH; -LACTATED RINGERS 1,000 ML IV SCH; -LEVOFLOXACIN 500MG-D5W PMX 500 MG in DEXTROSE/WATER 1 100ML.BAG IVPB ONE; +LEVOTHYROXINE 112 MCG TAB PO SCH; -ONDANSETRON 4 MG/2 ML VIAL IVP ONE; +PROPOFOL 10 MG/ML 20 ML VIAL IV ONE; +RIVAROXABAN 20 MG TAB PO SCH; +SODIUM CHLORIDE 0.9% 1,000 ML IV SCH; +SODIUM CHLORIDE 0.9% 500 ML 500 ML IV ONE; -fentaNYL (PF) 50 MCG/ML 2 ML AMP IV PRN; +lisinopriL 20 MG TAB PO SCH
[2020-07-09 07:02] LABS: Calcium 10.4 mg/dL (8.4-10.2); Potassium 4.4 mmol/L (3.5-5.1)
[2020-07-09] MEDS: BENZOCAINE SPRAY 1 CAN MUCOUS MEM ONE ×2 (07:26→07:35)
[2020-07-09 07:33] VITALS: TEMP 98
--- NOTE | 2020-07-09 08:39 | CE ---
CARDIAC ELECTROPHYSIOLOGY REPORT CARDIOVERSION PROCEDURE NOTE: INDICATION: Atrial fibrillation. PROCEDURE: After explaining the procedure to the patient, its risks and the complications, blood pressure, heart rate, O2 saturation were monitored. The throat was sprayed with Cetacaine. After proceeding with transesophageal echocardiogram and obtaining sedated state, a synchronized biphasic cardioversion using 150 and subsequently 200 joules was successful in restoring normal sinus rhythm. There was no immediate complication. MMRO / IJN: [id number] / [facility]
[2020-07-09 08:44] VITALS: RESP 18
[2020-07-09 09:34] VITALS: BP 141/79; PULSE 65
--- NOTE | 2020-07-09 09:48 | ECHOT ---
TRANSESOPHAGEAL ECHOCARDIOGRAM INDICATION: Atrial fibrillation. PROCEDURE NOTE: After explaining the procedure to the patient, its risks and the complications, blood pressure, heart rate, O2 saturation were monitored. The throat was sprayed with Cetacaine. She received sedation per Anesthesia Department. The probe was introduced esophagus without difficulty. Images were obtained. Following that, the probe was removed. There was no immediate complication. FINDINGS: The left atrial size is mildly dilated. Left ventricular size and systolic function normal. The aortic valve, mitral valve and tricuspid valve are normal. Descending thoracic aorta appears to be normal. Left atrial appendage is normal. An echogenic area was noted in the transverse pericardial sinus that could represent fat. No pericardial effusion was noted. Contrast bubble study revealed no evidence of shunting across the interatrial septum. Doppler pulse wave and color Doppler obtained and revealed a moderate severe mitral and tricuspid regurgitation with mild aortic and pulmonic regurgitation. There was no shunting across the interatrial septum. CONCLUSION: 1. Dilated left atrium with normal appearance of left atrial appendage. 2. Normal left ventricular size and systolic function. 3. Moderate severe mitral and tricuspid regurgitation with mild aortic and pulmonic regurgitation. 4. Normal appearance of descending thoracic aorta. 5. No shunting by color Doppler study or contrast bubble study. 6. Transverse pericardial sinus mass, most likely fat. MMODL / IJN: [id number] / [facility]
== END | disposition home or self-care (01) ==
LOC: CATHCVL 06:02
PROVIDERS: ATTEND Internal Medicine Interventional Cardiology
DX: I48.91 Unspecified atrial fibrillation (principal); I10 Essential (primary) hypertension; Z79.01 Long term (current) use of anticoagulants; Z79.890 Hormone replacement therapy; Z79.899 Other long term (current) drug therapy; Z88.0 Allergy status to penicillin; I08.1 Rheumatic disorders of both mitral and tricuspid valves
CPT/HCPCS: 93312; 93320; 93325; 92960; 80048; J2704

== ENCOUNTER → 2020-08-16 | Outpatient (CLI) | payer MEDICARE, OTHER ==
--- NOTE | 2020-08-16 15:01 | CT ---
EXAMINATION TYPE: CT chest wo/w con DATE OF EXAM: 08/16/2020 COMPARISON: HISTORY: History of cardiac mass, pericardial transverse sinus. CT DLP: 819 mGycm, Automated exposure control for dose reduction was used. CONTRAST: Performed injected with 100 mL of Isovue M300. TECHNIQUE: Axial images were obtained at 5 mm thick sections. Reconstructed images are reviewed on [employer] computer in the coronal plane. FINDINGS: Portion of the thyroid visualized is normal. There is a 0.3 cm nodule near the mediastinum in the left infrahilar region. Series 9 image 31. Emphy sematous changes are present. No enlarged mediastinal or hilar adenopathy is evident. The ascending aorta diameter at the level o f the main pulmonary artery is 3.7 cm. The main pulmonary artery diameter at the bifurcation is 2.7 cm. Small hiatal hernia is present. Limited CT sections are obtained through the upper abdomen. There is a 5.2 cm cyst on the anterior la teral upper pole left kidney measuring 5 Hounsfield units. Couple of nonobstructing punctate calcific ations at superior pole right kidney. IMPRESSIONS: 1. Emphysematous changes. 2. Small nodule left lower lung field. Follow-up is recommended in 6 months. 3. No suspicious masses within the Pericardial transverse sinus
== END | disposition home or self-care (01) ==
LOC: RADCTMAIN 10:49
PROVIDERS: ATTEND Internal Medicine Interventional Cardiology
DX: J43.9 Emphysema, unspecified (principal); R91.1 Solitary pulmonary nodule
CPT/HCPCS: 82565; 84520; 71270; J1642; Q9967

== ENCOUNTER → 2020-08-23 | Outpatient (CLI) | payer MEDICARE, OTHER ==
[2020-08-23 10:55] VITALS: BP 155/89; PULSE 71; RESP 18; TEMP 97.7
--- NOTE | 2020-08-23 11:51 | P.PN ---
Subjective Progress Note Date: 08/23/20 Principal diagnosis: stage IA right breast cancer stage 1A right breast cancer stage Ia right breast cancer, invasive ductal The patient is a 74 year old white female who had a routine mammogram of the right breast on 04-10-19. After this it was recommended she undergo a diagnostic right breast mammogram and ultrasound. On the ultrasound she was noted to have a 0.4 x 0.3 cm oval lesion in the upper outer quadrant region. The patient had an ultrasound-guided core biopsy on . This revealed invasive ductal carcinoma grade 2 and high-grade DCIS. This was ER positive AK negative HER-2 positive. She underwent a lumpectomy and sentinel node biopsy on 2519. 9 lymph nodes were removed which were negative for metastatic tumor. In the lumpectomy revealed a 5 x 3 mm moderately differentiated invasive ductal carcinoma. All margins were negative. She underwent adjuvant Taxol and Herceptin. And she then underwent adjuvant radiation therapy. She is now on Aromisin and finished July 31 taking Herceptin. This should finish in August. The tumor was a T1 1 N0 M0 stage IA. She has no complaints of any nipple discharge or skin changes. She has no history of any recent trauma or infection in the breast. She has persistent palpable changes in the right breast near the area of the lumpectomy. She is presently on Aromasin. She states that she feels pain in her ankles knees and hips, and will follow with medical oncology with respect to this. She underwent an ultrasound in August secondary to some palpable changes in the right breast which resulted in a core biopsy of 2 sites in the right breast. Both of these were consistent with fat necrosis. She was scheduled to have a total knee replacement however this has been put on hold at the present time until her kidneys are treated. She had a mammogram of the right breast on . The breast tissue is heterogeneously dense. There are postsurgical and post-therapeutic changes with areas of distortion noted on the radiograph. This was felt to be BIRADS 3 and repeat mammogram in 4 months of both breast. She had a bilateral mammogram on 04-15-20. No lesions of concern were noted in the left breast, a right breast ultrasound was recommended. The right breast ultrasound was done on 04-15-20 and this had a lesion in the 12 oclock position zone A which was considered of concern. She continues to feel fulness in the right breast in the 12 oclock position. She has had a biopsy of this area which showed fat necrosis. It does not seem to be changing as per the patient. She has had multiple kidney surgeries related to stones, 6 procedures in the last year. With the most recent procedures she did not fill well postprocedure and therefore the Herceptin was held for the month of April. She was started again in May. She was able to finish this in July. She saw Dr. Veras on August 06 and at this time she is being observed. She was told she still does have some residual debris and stones on both sides. The patient's breast was stage IA right breast cancer for which she underwent lumpectomy and sentinel node biopsy and 2520. 9 nodes removed all were negative, and the lumpectomy revealed a 5 x 3 mm moderately differentiated invasive ductal cancer all margins were negative. She underwent adjuvant Taxol and Herceptin. She completed the Herceptin July 31. She did have radiation therapy which was completed in December 2019. She is now on Aromasin which she is taking everyother day related to joint pain. She is tolerating this without difficulty. She has developed fat necrosis at the area of the lumpectomy and has had 3 core biopsies all which have been benign with fat necrosis. On the most recent CAT scan of the chest the breasts were again evaluated and no changes of concern were identified. She still has not had her knee surgery. In June she was diagnosed with A- Fib. She has had a stress test, and a LEON, and a cardioversion after which she converted on July 09. She saw Dr. Hernandez yesterday and was told a small spots on the left lung and a repeat CT scan in 6 months. Caffeine: One cup of coffee per day Nicotine: Negative chocolate: rare Family history: negative Hormonal History: menarche: 13 , 1 miscarriage, breast fed: yes, first born at 30 menopause: 55 BCP: 3 days hormones: none Past Surgical History: 1. 3 surgeries on right knee 2. ablation uterine 3. Percutaneous lumbar discectomy 4. kidney stones/ stent placed and removed 6 procedures on your kidneys 5. right breast lumpectomy and SNB Medical history: atrial fibrillation recently started on xeralto, another echo scheduled for September 03 to evaluate mitral valve and murmur Social History: smoke: none alcohol: none drugs: none - Constitutional Constitutional: Reports sweats - EENT Eyes: denies blurred vision, denies pain Ears: deny: decreased hearing, tinnitus Ears, nose, mouth and throat: Reports headache, Denies sore throat - Breasts Breasts: bilateral: as per HPI - Cardiovascular Cardiovascular: Reports high blood pressure, Denies chest pain, Denies shortness of breath - Respiratory Respiratory: Denies cough - Gastrointestinal Gastrointestinal: Denies abdominal pain, Denies diarrhea, Denies nausea, Denies vomiting - Genitourinary (Female) Genitourinary: Reports kidney stones - Menstruation Menstruation: Reports postmenopausal - Musculoskeletal Comment: right knee osetoarthritis - Integumentary Integumentary: Denies pruritus, Denies rash - Neurological Neurological: Denies numbness, Denies weakness - Psychiatric Psychiatric: Denies anxiety, Denies depression - Endocrine Comment: hypothyroid Endocrine: Denies fatigue, Denies weight change - Hematologic/Lymphatic Comment: none - Allergic/Immunologic Allergic/Immunologic: Reports as per HPI Objective - Vital Signs Vital signs: Vital Signs Temp 97.7 F 08/23/20 10:49 Pulse 71 08/23/20 10:49 Resp 18 08/23/20 10:49 BP 155/89 08/23/20 10:49 Pulse Ox 97 08/23/20 10:49 Intake & Output 08/22/20 08/23/20 08/23/20 18:59 06:59 18:59 Weight 64.41 kg - Exam BMI 22.2 - Constitutional General appearance: Present: average body habitus - EENT Eyes: Present: EOMI ENT: Present: hearing grossly normal - Neck Neck: Present: normal ROM - Respiratory Respiratory: bilateral: CTA - Cardiovascular Heart sounds: normal: S1, S2 - Integumentary Integumentary: Present: normal turgor - Musculoskeletal Musculoskeletal: Present: gait normal - Psychiatric Psychiatric: Present: A&O x's 3, appropriate affect, intact judgment & insight - Additional findings Additional findings: breast exam: BRA: 34C inspection: grade 3 ptosis palpation: right breast: Multi-positional exam reveals postoperative changes, in the 12 o' clock position superiorly there are changes related to fat necrosis in her lumpectomy there is a palpable mass which is approximately 1.5 x 2 cm in size core biopsy has been done and this is consistent with fat necrosis Right axilla: No adenopathy of concern Left breast: Multi-positional exam fibrocystic changes no dominant masses or nodules of concern Left axilla: No adenopathy of concern Port-A-Cath is in place in the right chest wall Assessment and Plan Assessment: Impression: 1. Palpable mass right breast 12 o'clock position consistent with fat necrosis" biopsy 2. Fibrocystic breast changes 3. Recent diagnosis of atrial fibrillation being followed by Dr. Gray responded to cardioversion, patient is presently answered multiple 4. Multiple kidney stones with multiple lithotripsies 5. Recent chest CT revealing small lesion left lung for which six-month follow- up has been recommended 6. Patient with history of stage I a right breast cancer no evidence of any recurrence 7. Patient presently on Aromasin Plan: 1. Removal of Port-A-Cath in the operating room; (DR. Espinosa placed this) 2. Removal of area of fat necrosis in the operating room after clearance with DR. Nascimento 3. Repeat ultrasound of the right breast in October which will be rescheduled as we are going to remove the area of fat necrosis in the operating room, bilateral mammogram in April 2021 4. continue Aromasin 5. repeat lung CT in 6 months Risks and benefits of removal of the fat necrosis are discussed with the patient. Risks include but are not limited to bleeding, infection, reaction to the anesthetic. Additionally she may form more fat necrosis after this is removed. She understands and wishes to proceed. I have also discussed with the removal of the Port-A-Cath I will talk to Dr. Hunt who placed the Port-A-Cath and we will ascertain I'll be removing it. Risk of removal of the Port-A-Cath again include bleeding, infection, reaction to the anesthetic. She understands and wishes to proceed. CC: Dr. Holt, Dr. Hernandez, Dr. Espinosa
== END ==
LOC: WWCWWP 10:38
PROVIDERS: ATTEND Surgery
DX: N60.11 Diffuse cystic mastopathy of right breast (principal); N63.15 Unspecified lump in the right breast, overlapping quadrants; I48.91 Unspecified atrial fibrillation; N20.0 Calculus of kidney; Z85.3 Personal history of malignant neoplasm of breast; Z79.811 Long term (current) use of aromatase inhibitors

== ENCOUNTER → 2020-10-04 | Outpatient (CLI) | payer MEDICARE, OTHER ==
[2020-10-04 13:51] VITALS: BP 145/79; PULSE 80; RESP 18; TEMP 98.4
--- NOTE | 2020-10-04 14:28 | P.PN ---
Subjective Progress Note Date: 10/04/20 Principal diagnosis: stage IA right breast cancer stage Ia right breast cancer, invasive ductal The patient had a right breast cancer which was stage IA right breast cancer for which she underwent lumpectomy and sentinel node biopsy on 2519. 9 nodes removed all were negative, and the lumpectomy revealed a 5 x 3 mm moderately differentiated invasive ductal cancer all margins were negative. She underwent adjuvant Taxol and Herceptin. She completed the Herceptin July 31, 2020. She did have radiation therapy which was completed in December 2019. She is now on Aromasin which she is taking every other day related to joint pain. She is tolerating this without difficulty. She has developed fat necrosis at the area of the lumpectomy and has had 3 core biopsies all which have been benign with fat necrosis. On the most recent CAT scan of the chest the breasts were again evaluated and no changes of concern were identified, however Dr. Hernandez is watching a small spot on the left lung and repeat CT in January is recommended. She was also during this time treated for multiple kidney stones. She had 6 procedures between the stents and the lithotripsies. At this time there are several residual stones however she is not recommended for further treatment at this time and is asymptomatic. She still has not had her knee surgery. In June she was diagnosed with A- Fib. She has had a stress test, and a LEON, and a cardioversion after which she converted on July 09, 2020. She is following with Dr. Gray and she is doing well after a cardioversion, and has been in normal sinus rhythm since. She is still waiting for her knee surgery. Secondary to the residual nodularity in the right breast after discussion with Dr. Hernandez is has been recommended that this be removed. Additionally the patient would like her Port-A-Cath to be removed. Caffeine: One cup of coffee per day Nicotine: Negative chocolate: rare Family history: patient: stage IA right breast cancer Hormonal History: menarche: 13 , 1 miscarriage, breast fed: yes, first born at 30 menopause: 55 BCP: 3 days hormones: none Past Surgical History: 1. 3 surgeries on right knee 2. ablation uterine 3. Percutaneous lumbar discectomy 4. kidney stones/ stent placed and removed 6 procedures on your kidneys 5. right breast lumpectomy and SNB Medical history: atrial fibrillation recently started on xeralto kidney stones Social History: smoke: none alcohol: none drugs: none - Constitutional Constitutional: Reports sweats - EENT Eyes: denies blurred vision, denies pain Ears: deny: decreased hearing, tinnitus Ears, nose, mouth and throat: Reports headache, Denies sore throat - Breasts Breasts: bilateral: as per HPI - Cardiovascular Cardiovascular: Reports high blood pressure, Denies chest pain, Denies shortness of breath atrial fibbrilation - Respiratory Respiratory: Denies cough - Gastrointestinal Gastrointestinal: Denies abdominal pain, Denies diarrhea, Denies nausea, Denies vomiting - Genitourinary (Female) Genitourinary: Reports kidney stones - Menstruation Menstruation: Reports postmenopausal - Musculoskeletal Comment: right knee osetoarthritis - Integumentary Integumentary: Denies pruritus, Denies rash - Neurological Neurological: Denies numbness, Denies weakness - Psychiatric Psychiatric: Denies anxiety, Denies depression - Endocrine Comment: hypothyroid Endocrine: Denies fatigue, Denies weight change - Hematologic/Lymphatic Comment: Xeralto - Allergic/Immunologic Allergic/Immunologic: Reports as per HPI Objective - Vital Signs Vital signs: Vital Signs Temp 98.4 F 10/04/20 13:50 Pulse 80 10/04/20 13:50 Resp 18 10/04/20 13:50 BP 145/79 10/04/20 13:50 Pulse Ox 98 10/04/20 13:50 Intake & Output 10/03/20 10/04/20 10/04/20 18:59 06:59 18:59 Weight 64.41 kg - Exam BMI 22.2 - Constitutional General appearance: Present: cooperative - EENT Eyes: Present: EOMI ENT: Present: hearing grossly normal - Neck Neck: Present: normal ROM - Respiratory Respiratory: bilateral: CTA - Cardiovascular Heart sounds: normal: S1, S2 - Gastrointestinal General gastrointestinal: Present: soft - Integumentary Integumentary: Present: normal turgor - Musculoskeletal Musculoskeletal: Present: gait normal - Psychiatric Psychiatric: Present: A&O x's 3, appropriate affect, intact judgment & insight - Additional findings Additional findings: Breast Exam: BRA: 34C inspection: Postop changes right breast, left breast grade 2/3 ptosis right breast grade 1/2 ptosis Palpation: Right breast: At the lumpectomy site there is approximately a 2 cm area of firmness which is freely mobile it is close however under the skin No other lumps masses or nodules of concern, fibrocystic changes Right axilla: No adenopathy of concern Left breast: Multi-positional exam fibrocystic changes no dominant masses or notches of concern Left axilla: No adenopathy of concern Port-A-Cath is in place in the right chest wall Assessment and Plan Assessment: Impression: atrial fibrillation recently started on xeralto kidney stones Nodularity right chest wall at lumpectomy site Port-A-Cath in place No evidence of any recurrent cancer Plan: 1. Resection of nodularity right chest wall 2. Removal of Port-A-Cath 3. Cardiac clearance 4. clearance from DR. Holt 5. stop xeralto as per cardiology Risks and benefits of procedure were discussed with the patient. These include bleeding, infection, reaction to the anesthetic. We have also discussed above difficulty with wound healing secondary to the fact that this was in a radiated field. She understands and wishes to proceed. Encounter 30 minutes time spent in physical examination, reviewing records, and counselling. Cc: Dr. Holt
== END ==
LOC: WWCWWP 13:34
PROVIDERS: ATTEND Surgery
DX: Z08 Encounter for follow-up examination after completed treatment for malignant neoplasm (principal); I48.91 Unspecified atrial fibrillation; N20.0 Calculus of kidney; Z85.3 Personal history of malignant neoplasm of breast; Z45.2 Encounter for adjustment and management of vascular access device; Z92.3 Personal history of irradiation; Z98.890 Other specified postprocedural states; Z79.899 Other long term (current) drug therapy

== ENCOUNTER 2020-10-15 07:11 | Day surgery (SDC) | payer MEDICARE, OTHER ==
[2020-10-11 15:26] VITALS: BMI 22.2
[~2020-10-15 07:11] MED LIST changes: -DILTIAZEM CD 120 MG CAP.ER.24H PO SCH; +HEPARIN SODIUM,PORCINE/PF 5,000 UNIT/0.5 ML SYRINGE SQ PRN; +LACTATED RINGERS 1,000 ML IV SCH; -LEVOTHYROXINE 112 MCG TAB PO SCH; +LIDOCAINE 1% (10MG/ML) FOR IV START INTRADERMA PRN; +ONDANSETRON 4 MG/2 ML VIAL IVP PRN; -PROPOFOL 10 MG/ML 20 ML VIAL IV ONE; -RIVAROXABAN 20 MG TAB PO SCH; -SODIUM CHLORIDE 0.9% 1,000 ML IV SCH; -SODIUM CHLORIDE 0.9% 500 ML 500 ML IV ONE; -lisinopriL 20 MG TAB PO SCH
[2020-10-15] MEDS ORDERED: SCOPOLAMINE 1.5MG/72HR PATCH TRANSDERM ONE (07:59)
[2020-10-15] MEDS ORDERED: fentaNYL (PF) 50 MCG/ML 2 ML AMP ONE (08:26)
[2020-10-15] MEDS ORDERED: MIDAZOLAM 2 MG/2 ML VIAL ONE (08:26)
[2020-10-15] MEDS ORDERED: PROPOFOL 10 MG/ML 20 ML VIAL IV ONE (08:26)
[2020-10-15] MEDS ORDERED: LIDOCAINE 1% INJ 10MG/ML (20 ML MDV) ONE (08:26)
[2020-10-15] MEDS ORDERED: ONDANSETRON 4 MG/2 ML VIAL ONE (08:26)
--- NOTE | 2020-10-15 09:11 | P.OP ---
Date of Procedure: 10/15/20 Preoperative Diagnosis: History of breast cancer Postoperative Diagnosis: History of breast cancer Procedure(s) Performed: Removal of right subclavian Port-A-Cath Anesthesia: JOMAR Surgeon: Epifanio Dolan Estimated Blood Loss (ml): 5 Pathology: none sent Condition: stable Disposition: PACU Description of Procedure: The patient's placed on the operative table in the supine position. She received general anesthesia. Her right chest was prepped and draped usual sterile fashion. The patient had a right subcu Port-A-Cath. The skin was incised Port-A-Cath. Using blunt and sharp dissection and left cautery the Port-A-Cath was dissected free. The Port-A-Cath and catheter removed intact. Patient top procedure well. The skin was closed by Dr. Wright.
--- NOTE | 2020-10-15 09:43 | P.OP ---
Date of Procedure: 10/15/20 Preoperative Diagnosis: Mass right breast/probable fat necrosis at prior lumpectomy site, patient ready for Port-A-Cath to be removed Postoperative Diagnosis: Same Procedure(s) Performed: Port-A-Cath removal by Dr. Wilson, lumpectomy of palpable mass right breast Anesthesia: JOMAR Surgeon: Gloria Hairston Estimated Blood Loss (ml): 5 IV fluids (ml): 600 Pathology: other (Palpable mass right breast) Condition: stable Disposition: same day Indications for Procedure: Mass right breast/biopsies in the past consistent with fat necrosis Operative Findings: Probable fat necrosis right breast Description of Procedure: Following induction of anesthesia the right breast was prepped and draped in a sterile fashion. Dr. Wilson came initially and removed the Port-A-Cath. Following this the incision for the Port-A-Cath was closed using deep 3-0 Vicryl sutures and the foreskin Monocryl. The area of the fat necrosis was then approached. The circumareolar incision was again utilized. This was opened and dissection was performed around the area of firm mass. The area was resected. This was approximately 57 years by 4 cm for 20 cm. After we were assured that hemostasis was attained the tissues were reapproximated using 3-0 Vicryl suture. The subcutaneous tissue was closed using 3-0 Vicryl suture. The skin was closed using 4-0 Monocryl. Steri-Strips were applied. The patient tolerated the procedure in stable condition. All instrument and sponge counts were correct at the end of the case.
--- NOTE | 2020-10-15 09:45 | P.PN ---
Progress Note - Text Progress Note Date: 10/15/20 Addendum to history and physical: The patient has a Port-A-Cath in place which is going to be removed by Dr. Mullins. Patient is aware was given verbal consent.
[2020-10-15 09:50] VITALS: TEMP 96.2
[2020-10-15 09:51] VITALS: RESP 16
[2020-10-15] MEDS: fentaNYL (PF) 50 MCG/ML 2 ML AMP IV PRN ×4 (10:02→10:51)
[2020-10-15 11:45] VITALS: BP 138/54; PULSE 66
== END 2020-10-15 12:15 | disposition home or self-care (01) ==
LOC: OR 07:11
PROVIDERS: ATTEND Surgery
DX: Z45.2 Encounter for adjustment and management of vascular access device (principal); N60.31 Fibrosclerosis of right breast; N60.01 Solitary cyst of right breast; N64.1 Fat necrosis of breast; Z85.3 Personal history of malignant neoplasm of breast; Z92.21 Personal history of antineoplastic chemotherapy; Z92.3 Personal history of irradiation; Z87.442 Personal history of urinary calculi; N20.0 Calculus of kidney; I48.91 Unspecified atrial fibrillation; Z98.890 Other specified postprocedural states; Z96.0 Presence of urogenital implants; Z79.01 Long term (current) use of anticoagulants; I10 Essential (primary) hypertension; E07.9 Disorder of thyroid, unspecified; Z79.890 Hormone replacement therapy; Z79.899 Other long term (current) drug therapy; Z88.5 Allergy status to narcotic agent; Z88.0 Allergy status to penicillin; Z88.2 Allergy status to sulfonamides
CPT/HCPCS: 19120; 36589; 88304; J2250; J0690; J2405; J2001; J3010; J2704; J1644; 88305

== ENCOUNTER → 2020-10-18 | Outpatient (CLI) | payer MEDICARE, OTHER ==
[2020-10-18 12:16] VITALS: BP 123/83; PULSE 68; RESP 18; TEMP 98.1
--- NOTE | 2020-10-18 13:54 | P.PN ---
Progress Note - Text Progress Note Date: 10/18/20 Marleen is a 74-year-old white female status post reexcision of of area fat necrosis right breast and removal of Port-A-Cath on . The biopsy site in the breast has healed without difficulty however the patient has had some oozing from the Port-A-Cath site. She is here for evaluation of this site. Additionally she is on Cymbalta. I have called Dr. Wilson's office and he is not available today. On evaluation it appears that it is a skin edge area that was oozing. There is no evidence of any hematoma at the site or problems otherwise. After informed consent and a timeout the patient was given the option of suturing this incision. She agreed to this. The area of concern was prepped using Betadine. 1% lidocaine was used to anesthetize the skin. A running nylon suture was placed. The bleeding seemed to stop. She is going to be checked in several hours to assure that the bleeding has not recurred.
== END ==
LOC: WWCWWP 11:51
PROVIDERS: ATTEND Surgery
DX: Z45.2 Encounter for adjustment and management of vascular access device (principal); Z88.0 Allergy status to penicillin; Z88.1 Allergy status to other antibiotic agents; Z88.5 Allergy status to narcotic agent

== ENCOUNTER → 2020-10-24 | Outpatient (CLI) | payer MEDICARE, OTHER ==
[2020-10-24 15:52] VITALS: BP 135/86; PULSE 64; RESP 18; TEMP 98
--- NOTE | 2020-10-24 16:25 | P.PN ---
Progress Note - Text Progress Note Date: 10/24/20 Marleen is a 74-year-old white female status post reexcision of of area fat necrosis [place] [id number]. The biopsy site in the breast has healed without difficulty however the patient had some oozing from the Port-A-Cath site. Sutures were placed at this site and she's had no further bleeding. Her last bilateral diagnostic mammogram was on . She subsequently had an ultrasound of the right breast this was performed on which was felt to be benign BIRADS 3 and repeat ultrasound in 3 months was recommended. Rather than do another ultrasound of the breast the area of concern was removed surgically. Pathology was benign. Incisions clean and dry Impression: 1. No evidence of any recurrent cancer in the right breast 2. Patient doing well postoperatively Plan: 1. Bilateral diagnostic mammogram April 2021 with appointment at that time
== END ==
LOC: WWCWWP 15:38
PROVIDERS: ATTEND Surgery
DX: Z08 Encounter for follow-up examination after completed treatment for malignant neoplasm (principal); Z85.3 Personal history of malignant neoplasm of breast; Z98.890 Other specified postprocedural states; Z88.1 Allergy status to other antibiotic agents; Z88.0 Allergy status to penicillin; Z88.5 Allergy status to narcotic agent

== ENCOUNTER → 2021-02-17 | Outpatient (CLI) | payer MEDICARE, OTHER ==
--- NOTE | 2021-02-17 13:44 | CT ---
EXAMINATION TYPE: CT chest wo/w con DATE OF EXAM: 02/17/2021 COMPARISON: 08/16/2020 HISTORY: Follow up Pulmonary nodule CT DLP: 346.6 mGycm Automated exposure control for dose reduction was used. CONTRAST: CT scan of the chest is performed without and with IV Contrast, patient injected with 80 mL of Isovue 300. FINDINGS: LUNGS: 3 mm nodular density left perihilar region image 31 persists and is unchanged. No new nodules are seen. The lungs are otherwise clear. Mild hyperinflation compatible with COPD. MEDIASTINUM: There are no greater than 1 cm hilar or mediastinal lymph nodes. No pericardial effusi on is seen. Thoracic aorta is of normal caliber. The heart is not enlarged. UPPER ABDOMEN: Left renal cystic changes noted. Nephrolithiasis noted bilaterally. OTHER: No additional significant abnormality is seen. IMPRESSION: 1. Stable tiny nodular density left perihilar region. No new nodules seen. Follow-up in one year advi sed.
== END | disposition home or self-care (01) ==
LOC: RADCTMAIN 11:34
PROVIDERS: ATTEND Radiology Radiation Oncology
DX: C50.411 Malignant neoplasm of upper-outer quadrant of right female breast (principal); Z92.3 Personal history of irradiation; Z92.21 Personal history of antineoplastic chemotherapy; Z17.0 Estrogen receptor positive status [ER+]
CPT/HCPCS: 82565; 84520; 71270; 36415; Q9967

== ENCOUNTER → 2021-04-22 | Outpatient (CLI) | payer MEDICARE, OTHER ==
[2021-04-22 12:43] LABS: HCT 45.8 % (34.0-46.0); HGB 14.3 gm/dL (11.4-16.0); MCH 28.4 pg (25.0-35.0); MCHC 31.3 g/dL (31.0-37.0); MCV 90.9 fL (80.0-100.0); Mean Platelet Volume 8.9; Platelet Count 208 k/uL (150-450); RBC 5.04 m/uL (3.80-5.40); RDW 14.1 % (11.5-15.5); WBC 7.8 k/uL (3.8-10.6)
[2021-04-22 12:54] LABS: Appearance,Urine Cloudy (Clear); Bilirubin,Urine Negative (Negative); Blood,Urine Large (Negative); Color,Urine Yellow; Glucose,Urine (UA) Negative (Negative); Ketones,Urine Negative (Negative); Leukocyte Esterase,Urine Large (Negative); Mucus,Urine Few /hpf; Nitrite,Urine Negative (Negative); PH, Urine 5.5 (5.0-8.0); Protein,Urine Trace (Negative); RBC,Urine >182 /hpf (0-5); Specific Gravity,Urine 1.024 (1.001-1.035); Squamous Epithelial Cell,Urine 4 /hpf (0-4); Urobilinogen,Urine <2.0 mg/dL (<2.0); WBC,Urine 9 /hpf (0-5)
[2021-04-22 13:03] LABS: Albumin 4.4 g/dL (3.5-5.0); Calcium 10.1 mg/dL (8.4-10.2); INR 1.5 (<1.2); Partial Thromboplastin Time 35.5 sec (22.0-30.0); Potassium 4.5 mmol/L (3.5-5.1); Prothrombin Time 14.9 sec (9.0-12.0); Total Bilirubin 0.5 mg/dL (0.2-1.3); Total Protein 7.3 g/dL (6.3-8.2)
== END | disposition home or self-care (01) ==
LOC: LABPAT 11:50
PROVIDERS: ATTEND Orthopaedic Surgery
DX: Z01.812 Encounter for preprocedural laboratory examination (principal)
CPT/HCPCS: 80053; 81001; 85027; 85610; 85730; 87070

== ENCOUNTER → 2021-04-22 | Outpatient (CLI) | payer MEDICARE, OTHER ==
--- NOTE | 2021-04-22 11:53 | MM ---
Reason for exam: additional evaluation requested from prior study. Last mammogram was performed 1 year ago. History: Patient is postmenopausal and has history of breast cancer at age 73. Benign excisional biopsy of the right breast, October 22, 2020. Benign US biopsy breast VAD RT of the right breast, September 22, 2019. Benign US biopsy breast add'l VAD RT of the right breast, September 22, 2019. Malignant MG pre op needle loc RT of the right breast, June 07, 2019. Lumpectomy of the right breast, June 07, 2019. Malignant US biopsy breast VAD RT of the right breast, May 15, 2019. Taking antineoplastic beginning at age 73. Physical Findings: Nurse did not find any significant physical abnormalities on exam. MG 3D Diag Mammo W/Cad YULIYA Bilateral CC and MLO view(s) were taken. Prior study comparison: April 15, 2020, bilateral MG 3d diag mammo w/cad YULIYA. December 25, 2019, right breast MG 3d diag mammo w/cad RT. April 10, 2019, bilateral MG 3d screening mammo w/cad. September 07, 2017, bilateral MG 3d screening mammo w/cad. There are scattered fibroglandular densities. No significant new findings when compared with previous films. These results were verbally communicated with the patient and result sheet given to the patient on 04/22/21. ASSESSMENT: Benign, BI-RAD 2 RECOMMENDATION: Follow-up diagnostic mammogram of both breasts in 1 year.
== END | disposition home or self-care (01) ==
LOC: RADMAMWWP 10:44
PROVIDERS: ATTEND Surgery
DX: Z85.3 Personal history of malignant neoplasm of breast (principal)
CPT/HCPCS: 77066; G0279; 77062

== ENCOUNTER 2021-08-01 21:59 | Emergency (ER) | payer MEDICARE, OTHER ==
[2021-08-01 22:28] VITALS: RESP 18; TEMP 98
--- NOTE | 2021-08-01 22:32 | ED ---
General Adult HPI - General Chief complaint: Extremity Injury, Lower Stated complaint: Rt Knee Pain,Swelling,Dr Norwood sent in Time Seen by Provider: 08/01/21 22:18 Source: patient, family Mode of arrival: wheelchair Limitations: physical limitation - History of Present Illness Initial comments: Dictation was produced using [employer] dictation software. please excuse any grammatical, word or spelling errors. Chief Complaint: 75-year-old male instructed to come to the emergency department for knee aspiration History of Present Illness: Patient 75-year-old female she was directed by one of the orthopedic surgeons come to the emergency department or the aspiration. Patient has history of frequent hemarthroses patient takes Xarelto and has severe arthritis to the bilateral knees. She's patient familiar to Dr. Tracey. Dr. Norwood was notified of patient and she was instructed to come to the emergency department of the aspiration performed. The ROS documented in this emergency department record has been reviewed and confirmed by me. Those systems with pertinent positive or negative responses have been documented in the HPI. All other systems are other negative and/or noncontributory. PHYSICAL EXAM: General Impression: Alert and oriented x3, not in acute distress HEENT: Normocephalic atraumatic, extra-ocular movements intact, pupils equal and reactive to light bilaterally, mucous membranes moist. Cardiovascular: Heart regular rate and rhythm Chest: Able to complete full sentences, no retractions, no tachypnea Musculoskeletal: Pulses present and equal in all extremities, no peripheral edema Lower extremities: Shows large right-sided knee effusion Motor: no focal deficits noted Neurological: CN II-XII grossly intact, no focal motor or sensory deficits noted Skin: Intact with no visualized rashes Psych: Normal affect and mood ED course: 75-year-old female presents to the emergency department for knee e ffusion of the right knee. She has history of hemarthroses. She gets frequent knee aspirations vital signs upon arrival are within acceptable limits. Dr. Norwood was here at the bedside prior to patient's arrival. He performed in the aspiration with removal of 90 mL of hemarthrosis. She was dressed and had Jameel wrap placed. Dr. Norwood recommended patient be discharged follow-up with Dr. Tracey outpatient. - Related Data Home Medications Medication Instructions Recorded Confirmed Biotin [Biotin Disolve] 5,000 mcg PO DAILY 05/09/19 07/15/21 Cholecalciferol (Vitamin D3) 50 mcg PO DAILY 05/09/19 07/15/21 [Vitamin D3] Lutein 20 mg PO DAILY 05/09/19 07/11/21 Rivaroxaban [Xarelto] 20 mg PO DAILY 07/03/20 07/15/21 Diltiazem HCl [Diltiazem HCl 24Hr 120 mg PO DAILY 08/23/20 07/15/21 ER] Levothyroxine Sodium 125 mcg PO DAILY 05/08/21 07/15/21 Ramipril [Altace] 10 mg PO DAILY 05/15/21 07/15/21 Acetaminophen [Tylenol 8 Hour] 650 mg PO HS 07/11/21 07/15/21 Exemestane [Aromasin] 25 mg PO Q3D 07/11/21 07/15/21 Allergies Allergy/AdvReac Type Severity Reaction Status Date / Time cephalexin [From Keflex] AdvReac Nausea & Verified 08/01/21 22:24 Vomiting hydromorphone [From Dilaudid] AdvReac migraine Verified 08/01/21 22:24 Penicillins AdvReac Nausea & Verified 08/01/21 22:24 Vomiting Review of Systems ROS Statement: Those systems with pertinent positive or pertinent negative responses have been documented in the HPI. ROS Other: All systems not noted in ROS Statement are negative. Past Medical History Past Medical History: Atrial Fibrillation, Cancer, Hypertension, Osteoarthritis (OA), Thyroid Disorder Additional Past Medical History / Comment(s): Afib with successful LEON/CVN, murmur, R breast cancer with 2 lumpectomies/chemo/radiation, recent UTI/completed ABX, severe arthritis bilateral knees and arthritis in hands, migraines, several kidney stones, hypothyroid, History of Any Multi-Drug Resistant Organisms: None Reported Past Surgical History: Breast Surgery, Orthopedic Surgery Additional Past Surgical History / Comment(s): R breast cancer/2 lumpectomies, breast biopsies, port a cath since removed, laser lithotripsies/bilateral ureteral stents, LEON/cardioversion, D&C, lumbar kyphoplasty, R knee arthrotomy and 2 R knee arthroscopies. Past Anesthesia/Blood Transfusion Reactions: Motion Sickness, Postoperative Nausea & Vomiting (PONV) Additional Past Anesthesia/Blood Transfusion Reaction / Comment(s): Pt has clausterphobia. Past Psychological History: No Psychological Hx Reported Smoking Status: Never smoker Past Alcohol Use History: None Reported Past Drug Use History: None Reported - Past Family History Father Family Medical History: Coronary Artery Disease (CAD) Additional Family Medical History / Comment(s): Father was at age 82 yrs. Mother Family Medical History: No Reported History Additional Family Medical History / Comment(s): at age 90 from heart issues she incurred from Rheumatic Fever as a child. General Exam Limitations: physical limitation Course Vital Signs 08/01/21 22:24 Temperature 98 F Pulse Rate 85 Respiratory 18 Rate Blood Pressure 174/128 O2 Sat by Pulse 97 Oximetry Procedures - Seaview Protocol (Time Out) Procedure Performed:: Right knee needle aspiration Performing Provider: Genaro Norwood Nurse: Maureen Pena Patient Identification (2 identifiers required): Chart, Verbal, Arm Band, Name, Birthdate Patient/Legal Casting Finisher has Confirmed: Identity, Site, Procedure, Consent Site: Right knee Disposition Clinical Impression: Hemarthrosis Disposition: HOME SELF-CARE Condition: Good Instructions (If sedation given, give patient instructions): Hemarthrosis (ED) Is patient prescribed a controlled substance at d/c from ED?: No Referrals: Ga Tracey MD [STAFF PHYSICIAN] - 1-2 days
[2021-08-01 22:38] VITALS: BP 142/76; PULSE 82
--- NOTE | 2021-08-03 08:47 | P.CNOR ---
History of Present Illness - [facility] Consult date: 08/01/21 History of present illness: The patient is a 75 year old female who is an established patient of Dr. Tracey. She has a history of bilateral knee arthritis. She is also on xarelto. She gets spontaneous hemarthrosis that Dr. Tracey has aspirated in the past. This evening she had spontaneous swelling of her knee. Her pain reached 10/10. Her daughter reached out to our answering service. I spoke with her and recommended coming to the ED for an aspiration. At the time of my evaluation she is complaining of isolated swelling and pain in her right knee. She denies fever or chills. She denies recent injury. Past Medical History Past Medical History: Atrial Fibrillation, Cancer, Hypertension, Osteoarthritis (OA), Thyroid Disorder Additional Past Medical History / Comment(s): Afib with successful LEON/CVN, murmur, R breast cancer with 2 lumpectomies/chemo/radiation, recent UTI/completed ABX, severe arthritis bilateral knees and arthritis in hands, migraines, several kidney stones, hypothyroid, History of Any Multi-Drug Resistant Organisms: None Reported Past Surgical History: Breast Surgery, Orthopedic Surgery Additional Past Surgical History / Comment(s): R breast cancer/2 lumpectomies, breast biopsies, port a cath since removed, laser lithotripsies/bilateral ureteral stents, LEON/cardioversion, D&C, lumbar kyphoplasty, R knee arthrotomy and 2 R knee arthroscopies. Past Anesthesia/Blood Transfusion Reactions: Motion Sickness, Postoperative Nausea & Vomiting (PONV) Additional Past Anesthesia/Blood Transfusion Reaction / Comm: Pt has clausterphobia. Past Psychological History: No Psychological Hx Reported Smoking Status: Never smoker Past Alcohol Use History: None Reported Past Drug Use History: None Reported - Past Family History Father Family Medical History: Coronary Artery Disease (CAD) Additional Family Medical History / Comment(s): Father was at age 82 yrs. Mother Family Medical History: No Reported History Additional Family Medical History / Comment(s): at age 90 from heart issues she incurred from Rheumatic Fever as a child. Medications and Allergies Home Medications Medication Instructions Recorded Confirmed Type Biotin [Biotin Disolve] 5,000 mcg PO DAILY 05/09/19 07/15/21 History Cholecalciferol (Vitamin D3) 50 mcg PO DAILY 05/09/19 07/15/21 History [Vitamin D3] Lutein 20 mg PO DAILY 05/09/19 07/11/21 History Rivaroxaban [Xarelto] 20 mg PO DAILY 07/03/20 07/15/21 History Diltiazem HCl [Diltiazem HCl 24Hr 120 mg PO DAILY 08/23/20 07/15/21 History ER] Levothyroxine Sodium 125 mcg PO DAILY 05/08/21 07/15/21 History Ramipril [Altace] 10 mg PO DAILY 05/15/21 07/15/21 History Acetaminophen [Tylenol 8 Hour] 650 mg PO HS 07/11/21 07/15/21 History Exemestane [Aromasin] 25 mg PO Q3D 07/11/21 07/15/21 History Allergies Allergy/AdvReac Type Severity Reaction Status Date / Time cephalexin [From Keflex] AdvReac Nausea & Verified 08/01/21 22:24 Vomiting hydromorphone [From Dilaudid] AdvReac migraine Verified 08/01/21 22:24 Penicillins AdvReac Nausea & Verified 08/01/21 22:24 Vomiting Physical Examination The patient is in moderate distress secondary to knee pain. She is alert and oriented. Head is NC/AT. Non-labored breathing. RIGHT LE: Healed incision over the anterior knee. No erythema or warmth. Tense effusion. Pain with PROM knee. Assessment and Plan Assessment: Right knee arthritis, large hemarthrosis. Plan: The patient has a large hemarthrosis which was drained (~90mL of bloody fluid). A compressive ALFREDA wrap was applied. She was instructed to ice and protect her WB as needed. She will follow-up Wednesday morning with Dr. Tracey as she is an established patient of [facility]. PROCEDURE: Verbal consent was obtained. The skin over the superolateral pole of the patella was prepped with alcohol and chloraprep. Using sterile technique an 18G needle was inserted into the knee. I was able to aspirate ~90mL of bloody fluid. The needle was withdrawn and a band-aid was applied followed by an ALFREDA wrap. The patient tolerated this well. Time with Patient: Greater than 30
== END 2021-08-01 22:36 | disposition home or self-care (01) ==
LOC: EC 21:59
DX: M25.061 Hemarthrosis, right knee (principal); I10 Essential (primary) hypertension; E03.9 Hypothyroidism, unspecified; I48.91 Unspecified atrial fibrillation; M19.90 Unspecified osteoarthritis, unspecified site; Z88.1 Allergy status to other antibiotic agents; Z88.0 Allergy status to penicillin; Z88.5 Allergy status to narcotic agent; Z79.899 Other long term (current) drug therapy; Z79.02 Long term (current) use of antithrombotics/antiplatelets; Z79.890 Hormone replacement therapy
CPT/HCPCS: 99283

== ENCOUNTER → 2021-08-26 | Outpatient (CLI) | payer MEDICARE, OTHER ==
[2021-08-26 12:22] LABS: INR 0.9 (<1.2); Partial Thromboplastin Time 23.6 sec (22.0-30.0); Prothrombin Time 9.9 sec (9.0-12.0)
[2021-08-26 19:38] LABS: Appearance,Urine Cloudy (Clear); Bacteria,Urine 4+ /HPF (None Seen); Bilirubin,Urine Negative (Negative); Blood,Urine Trace (Negative); Color,Urine Yellow (Yellow); Ketones,Urine Negative (Negative); Nitrite,Urine Negative (Negative); Specific Gravity,Urine 1.018 (1.001-1.030); Urobilinogen,Urine 0.2 (0.2,1.0)
[2021-08-26 20:59] LABS: HCT 41.5 % (37.2-46.3); HGB 12.4 g/dL (12.0-15.0); MCH 26.8 pg (27.0-32.0); MCHC 29.9 g/dL (32.0-37.0); MCV 89.8 fL (80.0-97.0); Mean Platelet Volume 11.4 fL (9.5-12.2); NRBC Per 100 WBC 0 /100 WBCS (0.0-0.0); Platelet Count 215 X 10*3/uL (140-440); RBC 4.62 X 10*6/uL (4.10-5.20); RDW 14.5 % (11.5-14.5); WBC 5.66 X 10*3/uL (4.50-10.00)
[2021-08-26 22:56] LABS: African American GFR (CKD) 75.1 (60.0-200.0); Albumin 4.1 g/dL (3.8-4.9); Albumin/Globulin Ratio 1.33 (1.60-3.17); Anion Gap 14.5 mmol/L (10.00-18.00); BUN/Creat Ratio 25.23 Ratio (12.00-20.00); Blood Urea Nitrogen 22.3 mg/dL (9.0-27.0); Calcium 9.8 mg/dL (8.7-10.3); Carbon Dioxide 20.8 mmol/L (20.0-27.5); Globulin 3.1 g/dL (1.6-3.3); Non-African American GFR(CKD) 64.8 (60.0-200.0); Potassium 4.9 mmol/L (3.5-5.5); Total Bilirubin 0.2 mg/dL (0.30-1.20); Total Protein 7.2 g/dL (6.2-8.2)
== END | disposition home or self-care (01) ==
LOC: LABPAT 10:30
PROVIDERS: ATTEND Orthopaedic Surgery
DX: Z01.812 Encounter for preprocedural laboratory examination (principal)
CPT/HCPCS: 80053; 81001; 85027; 85610; 85730; 87070

== ENCOUNTER 2021-09-08 10:54 | Observation (INO) | payer MEDICARE, OTHER ==
[2021-09-05 09:13] VITALS: BMI 22.5
[~2021-09-08 10:54] MED LIST changes: +ACETAMINOPHEN TAB 500 MG TAB PO PRN; +DEXAMETHASONE SOD PHOSPHATE 4 MG/ML 1 ML VIAL IV ONE; -HEPARIN SODIUM,PORCINE/PF 5,000 UNIT/0.5 ML SYRINGE SQ PRN; -LIDOCAINE 1% (10MG/ML) FOR IV START INTRADERMA PRN; +MELOXICAM 7.5 MG TAB PO PRN; +ONDANSETRON 4 MG/2 ML VIAL IVP ONE; +TRANEXAMIC ACID IN NACL,ISO-OS 1,000 MG in SALINE 1 100ML.BAG IVPB PRN
[2021-09-08] MEDS ORDERED: SCOPOLAMINE 1 MG/72 HR PATCH TRANSDERM ONE (11:55)
--- NOTE | 2021-09-08 12:33 | P.ANPRN ---
Procedure Note - Anesthesia - Nerve Block Performed Right Adductor Canal Infusion Time Out Performed: Yes Date of Procedure: 09/08/21 Procedure Start Time: 12:04 Procedure Stop Time: 12:11 Location of Patient: PreOp Indication: Acute Post-Operative Pain, Requested by Surgeon Sedation Type: Sedate with meaningful contact maintained Preparation: Sterile Prep, Sterile Dressing Position: Supine Catheter: Indwelling Needle Types: Pajunk Needle Gauge: 21 Ultrasound used to visualize needle placement: Yes Ultrasound used to observe medication spread: Yes Blood Aspirated: No Pain Paresthesia on Injection Noted: No Resistance on Injection: Normal Image Stored and Saved: Yes Events: Uneventful and Well Tolerated (Ropivacaine 0.5% 20 mL)
--- NOTE | 2021-09-08 12:34 | P.ANPRN ---
Procedure Note - Anesthesia - Nerve Block Performed Left iPack Single Time Out Performed: Yes Date of Procedure: 09/08/21 Procedure Start Time: 12:12 Procedure Stop Time: 12:16 Location of Patient: PreOp Indication: Acute Post-Operative Pain, Requested by Surgeon Sedation Type: Sedate with meaningful contact maintained Preparation: Sterile Prep Position: Supine Needle Types: Pajunk Needle Gauge: 21 Ultrasound used to visualize needle placement: Yes Ultrasound used to observe medication spread: Yes Blood Aspirated: No Pain Paresthesia on Injection Noted: No Resistance on Injection: Normal Image Stored and Saved: Yes Events: Uneventful and Well Tolerated (Ropivacaine 0.5% 25 mL plus dexamethasone 4 mg)
[2021-09-08] MEDS ORDERED: ROPIVACAINE 5 MG/ML 30 ML VIAL ONE (12:40)
[2021-09-08] MEDS ORDERED: PROPOFOL 10 MG/ML 20 ML VIAL IV ONE (12:40)
[2021-09-08] MEDS ORDERED: MIDAZOLAM 2 MG/2 ML VIAL ONE (12:40)
[2021-09-08] MEDS ORDERED: TRANEXAMIC ACID IN NACL,ISO-OS 1,000 MG/100 ML BAG ONE (12:40)
[2021-09-08] MEDS ORDERED: GLYCOPYRROLATE 0.2 MG/ML 2 ML VIAL ONE (12:40)
[2021-09-08] MEDS ORDERED: PHENYLEPHRINE-0.9% NACL SYG 1,000 MCG/10 ML SYRINGE ONE (12:40)
[2021-09-08] MEDS ORDERED: fentaNYL (PF) 50 MCG/ML 2 ML AMP ONE (12:40)
[2021-09-08] MEDS ORDERED: DEXAMETHASONE SOD PHOSPHATE 4 MG/ML 1 ML VIAL ONE (12:40)
[2021-09-08] MEDS ORDERED: LIDOCAINE 2% INJ 20 MG/ML (2 ML VIAL) ONE (12:40)
[2021-09-08] MEDS ORDERED: ceFAZolin 3,000 MG in SODIUM CHLORIDE 0.9% IRRIGATIO 3,000 ML IRRIGATION ONE (12:43)
--- NOTE | 2021-09-08 12:54 | P.OP ---
Date of Procedure: 09/08/21 Procedure(s) Performed: PREOPERATIVE DIAGNOSIS: Right knee severe osteoarthritis with genu valgum POSTOPERATIVE DIAGNOSIS: Right knee severe osteoarthritis with genu valgum; 2. Diminished bone quality/osteopenia/osteoporosis OPERATION: Right knee cemented total replacement arthroplasty. ANESTHESIA: Spinal ESTIMATED BLOOD LOSS: 150 ml. ACCREDITATION COORDINATOR: Krys Brown PA-C (assistance with: patient positioning, retraction, exposure, hemostasis, leg positioning, implantation, irrigation, closure, dressing) COMPLICATIONS: None apparent. COMPONENTS IMPLANTED: Persona system from [employer] with tibial stem extension INDICATIONS: Booker is a 75-year-old female with a history of knee osteoarthriti s and genu valgum. The patient's knee is end-stage, and conservative management has failed. The operation of knee replacement has been discussed at length in the office, as well as potential risks and complications. These are inclusive of, but not limited to: bleeding, infection, scarring, discomfort, blood vessel and nerve damage, need for further surgery, failure to relieve symptoms, persistence, recurrence, or worsening of problems, loosening, dislocation, wear, blood clot, pulmonary embolism, , gait dysfunction, stiffness, and other risks as discussed in the office. The patient elects to proceed and the consent form has been signed. PROCEDURE: The patient was taken to the operating room and positioned on the operating room table in the supine position. Anesthesia was initiated. Care was taken to make sure that all pressure points were adequately padded. The operative lower extremity was prepped and draped in the usual aseptic fashion using ChloraPrep. Ioban drape was used for the case and the patient received intravenous antibiotics within one hour of the incision. A pneumotourniquet and leg lane were used for the case. The limb was exsanguinated with an Esmarch bandage and the tourniquet was inflated to 350 mmHg. Time-out was called confirming the patient's identity, side, procedure and administration of antibiotics. The incision was then created midline directly over the knee, carried down through skin and into the subcutaneous tissues and down to fascia. Full thickness subcutaneous medial flap was developed. Medial parapatellar arthrotomy was performed and the interior of the knee was inspected. Significant hemosiderin staining was present. Organizing hematoma from the suprapatellar pouch and gutters were removed using a rongeur. There was end-stage osteoarthritis of the knee, especially of the patellofemoral compartment, with a moderate genu valgum type deformity. Eburnated bone grooves were noted in the trochlea, corresponding to grooves in the central and lateral facets of the patella, see below. The fat pad was excised and limited proximal medial release on the tibia was completed using meticulous dissection and a curved osteotome. The anterior cruciate ligament was taken down. Note was made of significant attrition of the anterior and significant degenerative appearance of the posterior cruciate ligaments. The exposure was excellent. The knee was flexed 90 degrees and the patella was everted. A spot was chosen on the femur approximately 1 cm anterior to the posterior cruciate ligament insertion and an intramedullary hole was created within the femur. The intramedullary guide was then set to 5 degrees of valgus. The distal cutting block was attached and pinned into position. An appropriate amount of distal femoral resection was set. The oscillating saw was then used to make the distal femoral cut. This cut was confirmed to be flat with the flat end of an osteotome. The retractors were placed around the tibia and the tibial surface was addressed. The angle and depth of resection was adjusted using an extramedullary cutting guide. The guide had a built-in 3 degree posterior slope cut. Once the cutting guide was adjusted appropriately and in line with the axis of the tibia and confirmed to be in good position in relation to the second metatarsal and transmalleolar axis, the tibial cut was then created with protection of the posterior neurovascular structures and the collateral ligaments. Note was made of diminished bone quality and therefore a short tibial stem extension was planned. The tibial cut surface was removed and sized. Femoral sizing was then accomplished using anterior referencing. Care was taken to analyze the posterior condyles for signs of deficiency or severe wear, and adjustments to the guide were made, as appropriate. 3 degree external rotation pins were placed. The cutting jig for the femur was applied to these pins. The planned cuts were further analyzed prior to performing them with the oscillating saw. No femoral notching was produced. Bone fragments were removed and the cut surfaces were finished, as necessary, with a reciprocating saw. Spacer block technique was then used to confirm that the flexion and extension gaps were equal. Soft tissue releases and adjustment of the tibial and/or femoral cuts were made, as necessary, until the gaps were equal. This included release of the posterior cruciate ligament, which was tight in this patient and, if left unreleased, would have resulted in poor kinematics and possibly early loosening. Lateral capsule was released using a sharp curved osteotome. The femur was then further finished for a posterior cruciate ligament substituting component. Patella was inspected and found to have terrible end stage arthritic disease with deep grooves in the central and lateral facets. Spurs were removed peripherally. Patellar resurfacing was performed using a reamer. The size of the required patellar component was estimated and the patellar surface was then reamed down to a residual thickness which would recreate the stebbins thickness with the component. The exact placement of the patellar component was adjusted for position based on preoperative x-rays and intraoperative findings. The trial components were inserted. The tibial tray was allowed to self center and the patella was noted to track very well. The position of the tibial component was marked and the tibia was then finished for a stemmed tibial component. Cement was mixed on the back table and applied to the final components. Trial components were removed and the cut surfaces of the bone were pulse lavaged thoroughly and dried. Cement was then applied to the tibial surface and pressurized into the surface using finger pressurization technique. The tibial component with stem extension was then applied and excess cement was removed after it was impacted securely and noted to be flush with the cut surface. In similar fashion, the cement was applied to the cut femoral surface, pressurized in using finger pressurization and the component was impacted into place. Excess cement was removed. The polyethylene spacer was then implanted and locked into position. The patellar component was then applied in similar technique and a patellar clamp was used to hold the patella in place as the cement hardened. Once the cement had fully hardened, the knee was reinspected. Any other cement extrusion was removed and final kinematic testing showed range of motion from 0 to 130 degrees with excellent stability, both medially and laterally and appropriate alignment of the leg. Patellar tracking was excellent. The knee was then thoroughly pulse lavaged with normal saline. The tourniquet was deflated and hemostasis was obtained with electrocautery and IV tranexamic acid, 1 g given at the start of the operation and 1 g at the start of closure. Closure was with #2 Ethibond in the fascia/capsule and supplemented with #2 Quill, 2-0 Vicryl suture was used for the subcutaneous tissues and 3-0 Quill for the skin. Dermabond/Steri-Strips were then applied. A lightly compressive dressing was applied using Webril and an Jameel wrap. The patient was then transferred to stretcher and taken to the recovery room in stable condition. Sponge and needle counts were correct.
[2021-09-08] MEDS ORDERED: LACTATED RINGERS 1,000 ML IV ONE (14:29)
[2021-09-08] MEDS ORDERED: bisacodyL 10 MG SUPP RECTAL PRN (14:48)
[2021-09-08] MEDS ORDERED: ONDANSETRON 4 MG/2 ML VIAL IVP PRN (14:48)
[2021-09-08] MEDS ORDERED: TEMAZEPAM 15 MG CAP PO PRN (14:48)
[2021-09-08] MEDS ORDERED: NALOXONE 0.4 MG/ML 1 ML VIAL IV PRN (14:48)
[2021-09-08] MEDS ORDERED: MAGNESIUM HYDROXIDE 2,400 MG/10 ML CUP PO PRN (14:48)
[2021-09-08] MEDS ORDERED: HYDROcodone/APAP 7.5-325MG 1 EACH TAB PO PRN (14:48)
[2021-09-08] MEDS: fentaNYL (PF) 50 MCG/ML 2 ML AMP IV PRN ×2 (14:55→14:59)
[2021-09-08] MEDS ORDERED: ROPIVACAINE 0.2%-NS ON-Q PUMP 1,090 MG, EMPTY PAIN BALL 1 EACH MISCELLANE PRN (15:03)
--- NOTE | 2021-09-08 15:35 | XR ---
EXAMINATION TYPE: XR knee limited RT DATE OF EXAM: 09/08/2021 CLINICAL HISTORY: Right knee pain and arthritis status post total knee replacement. TECHNIQUE: Portable AP and crosstable lateral views of the right knee are obtained immediately posto peratively. COMPARISON: None FINDINGS: Metallic hardware from total right knee arthroplasty is seen and appears satisfactory in a lignment and position. There is evidence of recent surgery with diffuse subcutaneous gas , vertical skin brian, and percutaneous suprapatellar surgical drain noted. IMPRESSION: METALLIC HARDWARE FROM TOTAL RIGHT KNEE ARTHROPLASTY IS SATISFACTORY IN ALIGNMENT.
[2021-09-08] MEDS ORDERED: MEPERIDINE 50 MG/ML SYRINGE IVP ONE ×2 (17:13→17:26)
[2021-09-08] MEDS: MORPHINE SULFATE 2 MG/ML SYRINGE IVP PRN (21:38)
[2021-09-08] MEDS: SENNOSIDES-DOCUSATE SODIUM 1 EACH TAB PO SCH (23:04)
[2021-09-08] MEDS: traMADol 50 MG TAB PO PRN (23:04)
[2021-09-08] MEDS: LACTATED RINGERS 1,000 ML IV SCH (23:05)
[2021-09-09] MEDS: LACTATED RINGERS 1,000 ML IV SCH ×3 (01:42→20:32)
[2021-09-09] MEDS: MORPHINE SULFATE 2 MG/ML SYRINGE IVP PRN ×3 (04:18→15:17)
[2021-09-09] MEDS: traMADol 50 MG TAB PO PRN ×3 (05:38→20:21)
--- NOTE | 2021-09-09 07:45 | P.PN ---
Progress Note - Text 09/09/21 712am 75-year-old female status post total knee replacement by Dr. Tracey. Patient has an On-Q pump for postop pain control with the solution running at 8 mL an hour with a VAS of 6-7. Her pain is located both anteriorly and posteriorly. Plan to continue On-Q pump infusion with oral pain medications.
[2021-09-09 09:33] LABS: Basophils # (A) 0 X 10*3/uL (0.00-0.10); Basophils % (A) 0 %; Eosinophils # (A) 0 X 10*3/uL (0.04-0.35); Eosinophils % (A) 0 %; HCT 31.9 % (37.2-46.3); HGB 9.7 g/dL (12.0-15.0); Immature Grans, Automated 0.4 %; Lymphocytes # (A) 0.67 X 10*3/uL (0.90-5.00); Lymphocytes % (A) 6.8 %; MCH 26.6 pg (27.0-32.0); MCHC 30.4 g/dL (32.0-37.0); MCV 87.6 fL (80.0-97.0); Mean Platelet Volume 10.8 fL (9.5-12.2); Monocytes # (A) 0.91 X 10*3/uL (0.20-1.00); Monocytes % (A) 9.2 %; NRBC Per 100 WBC 0 /100 WBCS (0.0-0.0); Neutrophils # (A) 8.26 X 10*3/uL (1.80-7.70); Neutrophils % (A) 83.6 %; Platelet Count 274 X 10*3/uL (140-440); RBC 3.64 X 10*6/uL (4.10-5.20); RDW 14.3 % (11.5-14.5); WBC 9.88 X 10*3/uL (4.50-10.00)
--- NOTE | 2021-09-09 12:59 | P.PN ---
Subjective Progress Note Date: 09/09/21 This is a 75-year-old female who is status post right total knee arthroplasty. This is postoperative day #1 and patient is seen and evaluated at bedside today. Patient states that she has been having difficulty with urinary retention and she is still quite sore. Patient states that she hasnt worked with physical therapy yet today. Objective - Vital Signs Vital signs: Vital Signs Temp 98.7 F 09/09/21 08:00 Pulse 79 09/09/21 08:00 Resp 18 09/09/21 08:00 BP 102/57 09/09/21 08:00 Pulse Ox 96 09/09/21 08:00 Intake & Output 09/08/21 09/09/21 09/09/21 18:59 06:59 18:59 Intake Total 1651 Output Total 150 550 Balance 1501 -550 Weight 66.2 kg 66.2 kg Intake: IV 1651 Output: Urine 550 Straight 550 Estimated Blood Loss 150 Other: # Voids 1 - Exam Vital signs are stable. Patient is in no acute distress and is alert and oriented 3. Calf is soft and nontender to palpation. Dressing is clean, dry, and intact. Patient has full foot and ankle motion without pain or difficulty. Sensation intact. Neurovascular status and circulatory status are intact. - Labs CBC & Chem 7: 09/09/21 03:17 Labs: Abnormal Lab Results - Last 24 Hours (Table) 09/09/21 Range/Units 03:17 RBC 3.64 L (4.10-5.20) X 10*6/uL Hgb 9.7 L (12.0-15.0) g/dL Hct 31.9 L (37.2-46.3) % MCH 26.6 L (27.0-32.0) pg MCHC 30.4 L (32.0-37.0) g/dL Neutrophils # 8.26 H (1.80-7.70) X 10*3/uL Lymphocytes # 0.67 L (0.90-5.00) X 10*3/uL Eosinophils # 0 L (0.04-0.35) X 10*3/uL Assessment and Plan (1) Osteoarthritis of right knee Current Visit: Yes Status: Acute Code(s): M17.11 - UNILATERAL PRIMARY OSTEOARTHRITIS, RIGHT KNEE SNOMED Code(s): 972012138107120 (2) Status post total right knee replacement Current Visit: Yes Status: Acute Code(s): Z96.651 - PRESENCE OF RIGHT ARTIFICIAL KNEE JOINT SNOMED Code(s): 1116598293173 Plan: #1 Continue with routine postoperative care and pain control, leave dressing in place for ten days. #2 Anticoagulation with aspirin. #3 Physical therapy today. #4 Appreciate input from medicine. #5 Anticipate discharge home with home care likely tomorrow.
--- NOTE | 2021-09-09 19:27 | P.CONS ---
History of Present Illness - Reason for Consult Consult date: 09/09/21 - History of Present Illness Nancy Frank, he is a 75-year-old female who was admitted to [facility] by Dr. Tracey and underwent right total knee arthroplasty due to severe osteoarthritis of the right knee that failed conservative management. Medical consultation was requested for management while patient is hospitalized. Patient is well known to my practice she has a known history of hypertension, hypothyroidism, paroxysmal atrial fibrillation, peripheral neuropathy, and previous history of breast cancer. Patient was seen and examined on the medical floor she is alert and oriented 3 in no apparent distress she is complaining of pain in the right lower extremity otherwise she denies any complaints there is no fever or chills no headache or dizziness no chest pain no shortness of breath no cough no nausea or vomiting no abdominal pain no diarrhea no blood in the stools there is no burning with urination no frequency or urgency no hematuria, there is no weakness or numbness in any of the extremities no change in vision or speech Past Medical History Past Medical History: Atrial Fibrillation, Cancer, Hypertension, Osteoarthritis (OA), Thyroid Disorder Additional Past Medical History / Comment(s): murmur, no A-fib since cardioversion per pt., R breast cancer with 2 lumpectomies/chemo/radiation, migraines, several kidney stones, hypothyroid, finishing A/B for recent UTI History of Any Multi-Drug Resistant Organisms: None Reported Past Surgical History: Breast Surgery, Orthopedic Surgery Additional Past Surgical History / Comment(s): R breast cancer/2 lumpectomies, breast biopsies, port a cath since removed, laser lithotripsies/bilateral ureteral stents, LEON/cardioversion, D&C, lumbar kyphoplasty, R knee arthrotomy and 2 R knee arthroscopies. Past Anesthesia/Blood Transfusion Reactions: Motion Sickness, Postoperative Nausea & Vomiting (PONV) Additional Past Anesthesia/Blood Transfusion Reaction / Comm: claustrophobia. Past Psychological History: No Psychological Hx Reported Additional Psychological History / Comment(s): Clausterphobia. Pt resides alone. She uses a cane prn. She is independent. Smoking Status: Never smoker Past Alcohol Use History: None Reported Past Drug Use History: None Reported - Past Family History Father Family Medical History: Coronary Artery Disease (CAD) Additional Family Medical History / Comment(s): Father was at age 82 yrs. Mother Family Medical History: No Reported History Additional Family Medical History / Comment(s): at age 90 from heart issues she incurred from Rheumatic Fever as a child. Medications and Allergies Home Medications Medication Instructions Recorded Confirmed Type Biotin [Biotin Disolve] 5,000 mcg PO DAILY 05/09/19 09/05/21 History Cholecalciferol (Vitamin D3) 50 mcg PO DAILY 05/09/19 09/05/21 History [Vitamin D3] Lutein 20 mg PO DAILY 05/09/19 09/05/21 History Rivaroxaban [Xarelto] 20 mg PO DAILY 07/03/20 09/05/21 History Diltiazem HCl [Diltiazem HCl 24Hr 120 mg PO DAILY 08/23/20 09/05/21 History ER] Levothyroxine Sodium 125 mcg PO DAILY 05/08/21 09/05/21 History Ramipril [Altace] 10 mg PO DAILY 05/15/21 09/05/21 History Acetaminophen [Tylenol 8 Hour] 650 mg PO HS 07/11/21 09/05/21 History Exemestane [Aromasin] 25 mg PO Q3D 07/11/21 09/05/21 History Ciprofloxacin HCl [Cipro] 250 mg PO Q12HR 09/05/21 09/05/21 History Gabapentin [Neurontin] 300 mg PO BID 5 Days #10 cap 09/08/21 Rx Ondansetron Odt [Zofran Odt] 4 mg PO Q8HR PRN #14 tab 09/08/21 Rx Sennosides-Docusate Sodium 1 tab PO BID #60 tablet 09/08/21 Rx [Senokot-S] traMADol HCL [Ultram] 50 mg PO Q6HR PRN #28 tab 09/08/21 Rx Allergies Allergy/AdvReac Type Severity Reaction Status Date / Time cephalexin [From Keflex] AdvReac Nausea & Verified 09/08/21 11:12 Vomiting hydromorphone [From Dilaudid] AdvReac migraine Verified 09/08/21 11:12 Penicillins AdvReac Nausea & Verified 09/08/21 11:12 Vomiting Physical Exam Vitals: Vital Signs Temp Pulse Resp BP Pulse Ox 09/09/21 18:11 98.3 F 73 18 116/64 97 09/09/21 14:00 99.2 F 69 16 105/60 97 09/09/21 08:00 98.7 F 79 18 102/57 96 09/09/21 00:47 98.4 F 74 14 112/58 96 Intake and Output 09/09/21 09/09/21 09/09/21 06:59 14:59 22:59 Intake Total 1080 Output Total 550 400 Balance -550 -400 1080 Intake: Oral 1080 Output: Urine 550 400 Straight 550 400 Other: # Voids 1 Weight 66.2 kg In general patient is alert and oriented x 3 in no distress HEENT head normocephalic and atraumatic Neck is supple no JVD no goiter no lymphadenopathy no carotid bruit Chest examination is clear to auscultation no crackles no wheezing Cardiac exam reveals regular heart sounds S1 and S2 no gallops no murmurs Abdomen is soft nontender no organomegaly with normal bowel sounds Extremity exam reveals no edema no cyanosis or clubbing Neurological examination reveals no gross focal deficits Results CBC & Chem 7: 09/09/21 03:17 Labs: Abnormal Lab Results - Last 24 Hours (Table) 09/09/21 Range/Units 03:17 RBC 3.64 L (4.10-5.20) X 10*6/uL Hgb 9.7 L (12.0-15.0) g/dL Hct 31.9 L (37.2-46.3) % MCH 26.6 L (27.0-32.0) pg MCHC 30.4 L (32.0-37.0) g/dL Neutrophils # 8.26 H (1.80-7.70) X 10*3/uL Lymphocytes # 0.67 L (0.90-5.00) X 10*3/uL Eosinophils # 0 L (0.04-0.35) X 10*3/uL Assessment and Plan Plan: Status post right total knee arthroplasty, pain management as per orthopedic protocol For DVT prophylaxis patient will be restarted on Xarelto today Underlying history of hypertension Underlying history of hypothyroidism Underlying history of paroxysmal atrial fibrillation Previous history of breast cancer Underlying history of osteoarthritis Previous history of urinary calculi Recent history of urinary tract infection treated with a course of ciprofloxacin At this time patient is admitted to medical floor Home medications reviewed and reordered Patient restarted on Xarelto, for history of atrial fibrillation and for DVT prophylaxis Will recheck urine analysis and due to recent urinary tract infection Will follow in a.m.
[2021-09-09] MEDS: RIVAROXABAN 20 MG TAB PO SCH (20:19)
[2021-09-09] MEDS: SENNOSIDES-DOCUSATE SODIUM 1 EACH TAB PO SCH (20:21)
[2021-09-09] MEDS ORDERED: ACETAMINOPHEN TAB 325 MG TAB PO SCH (21:00)
[2021-09-10] MEDS: MORPHINE SULFATE 2 MG/ML SYRINGE IVP PRN (01:06)
[2021-09-10] MEDS: traMADol 50 MG TAB PO PRN (05:05)
[2021-09-10] MEDS ORDERED: LEVOTHYROXINE 125 MCG TAB PO SCH (06:30)
--- NOTE | 2021-09-10 08:25 | P.DS ---
Providers Date of admission: 09/09/21 07:27 Expected date of discharge: 09/10/21 Attending physician: Ga Tracey Consults: 09/08/21 14:48 Consult Physician Routine Consulting Provider: Erich Holt Consult Reason/Comments: Medical management and anticoagulation. Do you want consulting provider notified?: Yes Primary care physician: Erich Holt - Discharge Diagnosis(es) (1) Osteoarthritis of right knee Current Visit: Yes Status: Acute (2) Status post total right knee replacement Current Visit: Yes Status: Acute Hospital Course: This is a 75-year-old female who was last seen with complaint of continued right knee pain. The patient has a known history of degenerative arthritis of the right knee and presents to discuss surgical options. After discussion and consideration the patient elects to proceed with total right knee arthroplasty. The patient is seen preoperatively by her primary care physician and cleared for surgery. The patient is admitted to [facility] for total right knee arthroplasty. The procedures performed without complication or sequelae. Patient is doing well postoperatively. She was initially having some apprehension with ambulation and pain management issues which are improved today. Vital signs are stable at discharge. Labs are stable at discharge. the patient is ambulating well. The patient is discharged to home on postop day #2 pending medical clearance. Please see orders and refer to the [facility] rec for accurate list of medications. Plan - Discharge Summary Discharge Rx Participant: Yes New Discharge Prescriptions: New Gabapentin [Neurontin] 300 mg PO BID 5 Days #10 cap Sennosides-Docusate Sodium [Senokot-S] 1 tab PO BID #60 tablet traMADol HCL [Ultram] 50 mg PO Q6HR PRN #28 tab PRN Reason: Pain Ondansetron Odt [Zofran Odt] 4 mg PO Q8HR PRN #14 tab PRN Reason: Nausea No Action Lutein 20 mg PO DAILY Cholecalciferol (Vitamin D3) [Vitamin D3] 50 mcg PO DAILY Biotin [Biotin Disolve] 5,000 mcg PO DAILY Rivaroxaban [Xarelto] 20 mg PO DAILY Diltiazem HCl [Diltiazem HCl 24Hr ER] 120 mg PO DAILY Levothyroxine Sodium 125 mcg PO DAILY Exemestane [Aromasin] 25 mg PO Q3D Ciprofloxacin HCl [Cipro] 250 mg PO Q12HR Ramipril [Altace] 10 mg PO DAILY Acetaminophen [Tylenol 8 Hour] 650 mg PO HS Discharge Medication List Biotin [Biotin Disolve] 5,000 mcg PO DAILY 05/09/19 [History] Cholecalciferol (Vitamin D3) [Vitamin D3] 50 mcg PO DAILY 05/09/19 [History] Lutein 20 mg PO DAILY 05/09/19 [History] Rivaroxaban [Xarelto] 20 mg PO DAILY 07/03/20 [History] Diltiazem HCl [Diltiazem HCl 24Hr ER] 120 mg PO DAILY 08/23/20 [History] Levothyroxine Sodium 125 mcg PO DAILY 05/08/21 [History] Ramipril [Altace] 10 mg PO DAILY 05/15/21 [History] Acetaminophen [Tylenol 8 Hour] 650 mg PO HS 07/11/21 [History] Exemestane [Aromasin] 25 mg PO Q3D 07/11/21 [History] Ciprofloxacin HCl [Cipro] 250 mg PO Q12HR 09/05/21 [History] Gabapentin [Neurontin] 300 mg PO BID 5 Days #10 cap 09/08/21 [Rx] Ondansetron Odt [Zofran Odt] 4 mg PO Q8HR PRN #14 tab 09/08/21 [Rx] Sennosides-Docusate Sodium [Senokot-S] 1 tab PO BID #60 tablet 09/08/21 [Rx] traMADol HCL [Ultram] 50 mg PO Q6HR PRN #28 tab 09/08/21 [Rx] Follow up Appointment(s)/Referral(s): Krys Brown, PAC [PHYSICIAN PIPEFITTER] - 09/22/21 9:45 am (With Krys Brown) [facility], [NON-STAFF] - ([facility] will call you to schedule your in home physical therapy visits. ) Patient Instructions/Handouts: *Surgery [facility] - Scopalamine Patch Instructions Activity/Diet/Wound Care/Special Instructions: May bear wt as tolerated w walker. May shower 48h post op. Remove Optifoam dressing 1 week post op.
[2021-09-10] MEDS: RIVAROXABAN 20 MG TAB PO SCH (08:30)
[2021-09-10] MEDS ORDERED: lisinopriL 20 MG TAB PO SCH (09:00)
[2021-09-10] MEDS ORDERED: DILTIAZEM CD 120 MG CAP.ER.24H PO SCH (09:00)
[2021-09-10 09:02] LABS: Basophils # (A) 0.02 X 10*3/uL (0.00-0.10); Basophils % (A) 0.3 %; Eosinophils # (A) 0.01 X 10*3/uL (0.04-0.35); Eosinophils % (A) 0.1 %; HCT 31.1 % (37.2-46.3); HGB 9.6 g/dL (12.0-15.0); Immature Grans, Automated 0.4 %; Lymphocytes # (A) 1.01 X 10*3/uL (0.90-5.00); Lymphocytes % (A) 13.9 %; MCH 27.1 pg (27.0-32.0); MCHC 30.9 g/dL (32.0-37.0); MCV 87.9 fL (80.0-97.0); Mean Platelet Volume 11.6 fL (9.5-12.2); Monocytes # (A) 0.78 X 10*3/uL (0.20-1.00); Monocytes % (A) 10.8 %; NRBC Per 100 WBC 0 /100 WBCS (0.0-0.0); Neutrophils % (A) 74.5 %; Platelet Count 205 X 10*3/uL (140-440); RBC 3.54 X 10*6/uL (4.10-5.20); RDW 14.5 % (11.5-14.5); WBC 7.25 X 10*3/uL (4.50-10.00)
[2021-09-10 09:12] VITALS: BP 147/66; PULSE 70; RESP 19; TEMP 98
[2021-09-10 09:13] LABS: African American GFR (CKD) 99.6 (60.0-200.0); Albumin 3.6 g/dL (3.8-4.9); Albumin/Globulin Ratio 1.8 (1.60-3.17); Anion Gap 11.2 mmol/L (10.00-18.00); Blood Urea Nitrogen 16.1 mg/dL (9.0-27.0); Calcium 8.7 mg/dL (8.7-10.3); Carbon Dioxide 20.8 mmol/L (20.0-27.5); Potassium 4.1 mmol/L (3.5-5.5); Total Bilirubin 0.2 mg/dL (0.30-1.20); Total Protein 5.6 g/dL (6.2-8.2)
--- NOTE | 2021-09-10 11:21 | P.PN ---
Subjective Progress Note Date: 09/10/21 Nancy Frank, he is a 75-year-old female who was admitted to [facility] by Dr. Tracey and underwent right total knee arthroplasty due to severe osteoarthritis of the right knee that failed conservative management. Medical consultation was requested for management while patient is hospitalized. Patient is well known to my practice she has a known history of hypertension, hypothyroidism, paroxysmal atrial fibrillation, peripheral neuropathy, and previous history of breast cancer. Patient was seen and examined on the medical floor she is alert and oriented 3 in no apparent distress she is complaining of pain in the right lower extremity otherwise she denies any complaints there is no fever or chills no headache or dizziness no chest pain no shortness of breath no cough no nausea or vomiting no abdominal pain no diarrhea no blood in the stools there is no burning with u rination no frequency or urgency no hematuria, there is no weakness or numbness in any of the extremities no change in vision or speech On 09/10/2021 patient is alert and oriented 3. Patient has been restarted on her xarelto 20 mg daily due to A. fib and DVT prophylaxis. Did discuss with nursing staff that patient is to have UA completed prior to discharge to assess clearance of infection. Anticipate discharge today per orthopedic surgery. Current vitals temp 98, heart rate 70, respiratory rate 19, blood pressure 147/66 and pulse ox 96% on room air Objective - Vital Signs Vital signs: Vital Signs Temp 98 F 09/10/21 08:17 Pulse 70 09/10/21 08:17 Resp 19 09/10/21 08:17 BP 147/66 09/10/21 08:17 Pulse Ox 96 09/10/21 08:17 Intake & Output 09/09/21 09/10/21 09/10/21 18:59 06:59 18:59 Intake Total 1080 180 Output Total 400 900 Balance 680 -900 180 Intake: Oral 1080 180 Output: Urine 400 900 Straight 400 - Exam Head normocephalic Neck supple Lungs clear to auscultation bilaterally no wheezing or crackles Heart regular rate and rhythm S1-S2, no rub or gallop Abdomen is soft nontender nondistended positive bowel sounds no hepatosplenomegaly Extremities no edema. Right knee dressing clean dry and intact Neuro alert and orientated to 3 - Labs CBC & Chem 7: 09/10/21 03:22 09/10/21 03:22 Labs: Abnormal Lab Results - Last 24 Hours (Table) 09/10/21 09/10/21 Range/Units 03:22 03:22 RBC 3.54 L (4.10-5.20) X 10*6/uL Hgb 9.6 L (12.0-15.0) g/dL Hct 31.1 L (37.2-46.3) % MCHC 30.9 L (32.0-37.0) g/dL Eosinophils # 0.01 L (0.04-0.35) X 10*3/uL BUN/Creatinine Ratio 23.00 H (12.00-20.00) Ratio Total Bilirubin 0.20 L (0.30-1.20) mg/dL Total Protein 5.6 L (6.2-8.2) g/dL Albumin 3.6 L (3.8-4.9) g/dL Assessment and Plan Plan: Status post right total knee arthroplasty, pain management as per orthopedic protocol For DVT prophylaxis patient will be restarted on Xarelto today Underlying history of hypertension Underlying history of hypothyroidism Underlying history of paroxysmal atrial fibrillation Previous history of breast cancer Underlying history of osteoarthritis Previous history of urinary calculi Recent history of urinary tract infection treated with a course of ciprofloxacin At this time patient is admitted to medical floor Home medications reviewed and reordered Patient restarted on Xarelto, for history of atrial fibrillation and for DVT prophylaxis Continue have UA completed prior to discharge to assess clearance of infection
[2021-09-10 11:55] LABS: Appearance,Urine Clear (Clear); Bilirubin,Urine Negative (Negative); Blood,Urine Negative (Negative); Color,Urine Light Yellow; Glucose,Urine (UA) Negative (Negative); Ketones,Urine Negative (Negative); Leukocyte Esterase,Urine Negative (Negative); Nitrite,Urine Negative (Negative); PH, Urine 6.5 (5.0-8.0); Protein,Urine Negative (Negative); Specific Gravity,Urine 1.013 (1.001-1.035); Urobilinogen,Urine <2.0 mg/dL (<2.0)
== END 2021-09-10 13:23 | disposition home health service (06) ==
LOC: OR 10:54 → 4SSUR 18:18 → OR 09-09 07:27
PROVIDERS: ADMIT Orthopaedic Surgery; ATTEND Orthopaedic Surgery
DX: M17.11 Unilateral primary osteoarthritis, right knee (principal); M21.061 Valgus deformity, not elsewhere classified, right knee; M85.80 Other specified disorders of bone density and structure, unspecified site; M81.0 Age-related osteoporosis without current pathological fracture; I10 Essential (primary) hypertension; E03.9 Hypothyroidism, unspecified; I48.0 Paroxysmal atrial fibrillation; G62.9 Polyneuropathy, unspecified; Z85.3 Personal history of malignant neoplasm of breast; R01.1 Cardiac murmur, unspecified; Z92.21 Personal history of antineoplastic chemotherapy; Z92.3 Personal history of irradiation; G43.909 Migraine, unspecified, not intractable, without status migrainosus; Z87.442 Personal history of urinary calculi; Z87.440 Personal history of urinary (tract) infections; Z98.890 Other specified postprocedural states; Z96.0 Presence of urogenital implants; F40.240 Claustrophobia; Z82.49 Family history of ischemic heart disease and other diseases of the circulatory system; Z79.01 Long term (current) use of anticoagulants; Z79.890 Hormone replacement therapy; Z79.899 Other long term (current) drug therapy; Z88.1 Allergy status to other antibiotic agents; Z88.5 Allergy status to narcotic agent; Z88.0 Allergy status to penicillin
CPT/HCPCS: 97116 ×2; 97161; 64999; 64448; 76942; 88305; 80053; 85025 ×2; 81003; 88311; 73560; 27447; G0378 ×2; C1713; C1776; J2250; J1100; J2175; J0690 ×3; J2405; J3010; J2270 ×3; J2795 ×2; J2370; J2704; J2001

== ENCOUNTER → 2022-03-02 | Outpatient (CLI) | payer MEDICARE, OTHER ==
--- NOTE | 2022-03-02 19:57 | BD ---
EXAMINATION TYPE: Axial Bone Density DATE OF EXAM: 03/02/2022 CLINICAL HISTORY: 76 years year old Female. ICD-10 CODE: C50.411 BREAST CA Nuclear Medicine Study in the last 2 weeks: Barium Study in the last week: : Height: Weight: FRAX RISK QUESTIONS: Alcohol (3 or more units per day): NO Family History (Parent hip fracture): NO Glucocorticoids (More than 3mos): NO History of Fracture in Adulthood: NO Secondary Osteoporosis: 1. Type 1 Diabetes: NO 2. Hyperthyroidism: NO 3. Menopause before 45: NO 4. Malnutrition: NO 5. Chronic liver disease: NO Rheumatoid Arthritis: NO Current Tobacco Use: NO RISK FACTORS HISTORY OF: Hip Fracture (Right/Left): NO Spine Fracture: NO History of Wrist Fracture: NO Surgery to Spine/Hip(right/left)/Wrist (right/left): NO Family History of Osteoporosis: NO Active: YES Diet low in dairy products/other sources of calcium: NO Postmenopausal woman: YES Take estrogen and/or progesterone medications: NO Lost more than 2 inches in height since high school: NO Frequent falls: NO Poor Health: NO Hyperparathyroidism: NO Adrenal Insufficiency: NO MEDICATIONS: Prednisone or other steroids: NO Thyroid Medications: SYNTHROID How Long: PAST 20 YEARS Osteoporosis Medications: NO Additional Medications: BP MEDS, CARDI DEE, XARELTO. EXEMESTANE, VIT D, BIOTIN Additional History: BREAST CA, JUN 2019 EXAM MEASUREMENTS: Bone mineral densitometry was performed using the [employer] System. Bone mineral density as measured about the Lumbar spine is: ----- L1-L4(G/cm2): 0.917 T Score Values are as follows: ----- L1: -2.4 ----- L2: -3.1 ----- L3: -2.2 ----- L4: -1.6 ----- L1-L4: -2.2 Bone mineral density has: INCREASED 7.5 % since study of: 02/27/2020 Bone mineral density about the R hip (g/cm2): 0.786 Bone mineral density about the L hip (g/cm2): 0.853 T Score values are as follows: -----R Neck: -1.8 -----L Neck: -1.3 -----R Total: -2.4 -----L Total: -2.1 Bone mineral density has: DECREASED -5.2 % since study of: 02/27/2020 FRAX%s: The graph provided illustrates a 11.9% chance for a major osteoporotic fx and a 2.8% chance f or the hips probability for fx in 10 years time. IMPRESSION: Osteopenia (T Score between -2.5 and -1). Note that measurements are bordering on osteoporosis. There is slightly increased risk of fracture and the patient may be considered for treatment. Re-Screen 2-5 years. NOTE: T-SCORE=SD OF THE YOUNG ADULT MEAN.
== END | disposition home or self-care (01) ==
LOC: RADBDWWP 09:12
PROVIDERS: ATTEND Internal Medicine Hematology & Oncology
DX: M85.89 Other specified disorders of bone density and structure, multiple sites (principal); Z85.3 Personal history of malignant neoplasm of breast; Z78.0 Asymptomatic menopausal state
CPT/HCPCS: 77080

== ENCOUNTER → 2022-04-23 | Outpatient (CLI) | payer MEDICARE, OTHER ==
--- NOTE | 2022-04-23 14:36 | MM ---
Reason for Exam: Follow-up at short interval from prior study. Last screening mammogram was performed 12 month(s) ago. Patient History: Menarche at age 14. First Full-Term at age 30. Postmenopausal. Breast cancer, age 73. Previous chest radiation therapy at age 73. Previous chemotherapy at age 73. 10/22/2020, Benign Excisional Biopsy on the right side. 06/07/2019, Lumpectomy on the Right side. 09/22/2019, Benign Core Biopsy on the right side. 09/22/2019, Benign Core Biopsy on the right side. 06/07/2019, Malignant Core Biopsy on the right side. 05/15/2019, Malignant Core Biopsy on the right side. Prior Study Comparison: 01/25/1995 Screening Mammogram, Unknown. 01/04/2020 Right Diagnostic Ultrasound, [facility]. 04/15/2020 Bilateral Diagnostic Mammogram, [facility]. 04/15/2020 Right Diagnostic Ultrasound, [facility]. 04/19/2020 Right Diagnostic Ultrasound, [facility]. 04/22/2021 Bilateral Diagnostic Mammogram, [facility]. Tissue Density: The breast tissue is heterogeneously dense. This may lower the sensitivity of mammography. Findings: Analyzed By CAD. Postsurgical and posttreatment change superior right breast. Areas of asymmetric density are unchanged. No significant change from prior exams. Overall Assessment: Benign, BI-RAD 2 Management: Diagnostic Mammogram of both breasts in 1 year. 1. Patient should continue monthly self breast exams. 2. A clinical breast exam by your physician is recommended on an annual basis. 3. This exam should not preclude additional follow-up of suspicious palpable abnormalities. Results were given to the patient verbally at the time of exam. Electronically signed and approved by: Neema Blair M.D. Radiologist
== END | disposition home or self-care (01) ==
LOC: RADMAMWWP 14:04
PROVIDERS: ATTEND Radiology Radiation Oncology
DX: C50.411 Malignant neoplasm of upper-outer quadrant of right female breast (principal); Z78.0 Asymptomatic menopausal state
CPT/HCPCS: 77066; G0279; 77062

== ENCOUNTER → 2022-07-15 | Outpatient (CLI) | payer MEDICARE, OTHER ==
[2022-07-15 15:25] LABS: HCT 43.4 % (37.2-46.3); HGB 13.6 g/dL (12.0-15.0); MCH 26.4 pg (27.0-32.0); MCHC 31.3 g/dL (32.0-37.0); MCV 84.3 fL (80.0-97.0); Mean Platelet Volume 11.6 fL (9.5-12.2); NRBC Per 100 WBC 0 /100 WBCS (0.0-0.0); Platelet Count 230 X 10*3/uL (140-440); RBC 5.15 X 10*6/uL (4.10-5.20); RDW 15.4 % (11.5-14.5); WBC 6.95 X 10*3/uL (4.50-10.00)
[2022-07-15 16:09] LABS: Albumin 4.6 g/dL (3.8-4.9); Albumin/Globulin Ratio 1.84 (1.60-3.17); Anion Gap 12.3 mmol/L (10.00-18.00); BUN/Creat Ratio 24.89 Ratio (12.00-20.00); Blood Urea Nitrogen 22.4 mg/dL (9.0-27.0); Calcium 9.7 mg/dL (8.7-10.3); Carbon Dioxide 23.7 mmol/L (20.0-27.5); Globulin 2.5 g/dL (1.6-3.3); Potassium 4.4 mmol/L (3.5-5.5); Total Bilirubin 0.2 mg/dL (0.30-1.20); Total Protein 7.1 g/dL (6.2-8.2)
[2022-07-15 17:11] LABS: Appearance,Urine Cloudy (Clear); Bilirubin,Urine Negative (Negative); Blood,Urine Large (Negative); Color,Urine Yellow (Yellow); Ketones,Urine Negative (Negative); Nitrite,Urine Negative (Negative); Specific Gravity,Urine 1.019 (1.001-1.030); Urobilinogen,Urine 0.2 (0.2,1.0)
[2022-07-15 20:45] LABS: Bacteria,Urine Trace /HPF (None Seen); Calcium Oxalate Crystals,Urine Present /LPF (None Seen)
[2022-07-15 21:57] LABS: INR 1.2 (<1.2); Prothrombin Time 12.2 sec (9.0-12.0)
== END | disposition home or self-care (01) ==
LOC: LABPAT 10:57
PROVIDERS: ATTEND Orthopaedic Surgery
DX: Z01.812 Encounter for preprocedural laboratory examination (principal); M17.12 Unilateral primary osteoarthritis, left knee
CPT/HCPCS: 80053; 81001; 85027; 85610; 85730; 87070

== ENCOUNTER 2022-08-10 10:40 | Day surgery (SDC) | payer MEDICARE, OTHER ==
[~2022-08-10 10:40] MED LIST changes: -DEXAMETHASONE SOD PHOSPHATE 4 MG/ML 1 ML VIAL IV ONE; -LACTATED RINGERS 1,000 ML IV SCH; +LIDOCAINE 1% (10MG/ML) FOR IV START INTRADERMA PRN; -ONDANSETRON 4 MG/2 ML VIAL IVP ONE; +fentaNYL (PF) 50 MCG/ML 2 ML AMP IV PRN
[2022-08-10] MEDS ORDERED: DEXAMETHASONE SOD PHOSPHATE 4 MG/ML 1 ML VIAL IVP ONE (11:34)
[2022-08-10] MEDS ORDERED: SCOPOLAMINE 1 MG/72 HR PATCH TRANSDERM ONE (11:34)
[2022-08-10] MEDS: LACTATED RINGERS 1,000 ML IV SCH ×2 (11:34→11:37)
[2022-08-10] MEDS ORDERED: MIDAZOLAM 2 MG/2 ML VIAL IVP ONE (11:43)
[2022-08-10] MEDS ORDERED: ROPIVACAINE 1,100 MG, SODIUM CHLORIDE 0.9% 500 ML 330 ML, EMPTY PAIN BALL 1 EACH MISCELLANE PRN ×2 (12:09)
[2022-08-10] MEDS ORDERED: LIDOCAINE 2% INJ 20 MG/ML (2 ML VIAL) ONE (12:30)
[2022-08-10] MEDS ORDERED: MIDAZOLAM 2 MG/2 ML VIAL ONE (12:30)
[2022-08-10] MEDS ORDERED: KETAMINE 10 MG/ML 20 ML VIAL ONE (12:30)
[2022-08-10] MEDS ORDERED: PROPOFOL 10 MG/ML 20 ML VIAL IV ONE (12:30)
[2022-08-10] MEDS ORDERED: HYDROmorphone (PF) 1 MG/ML ONE (12:30)
[2022-08-10] MEDS ORDERED: fentaNYL (PF) 50 MCG/ML 2 ML AMP ONE (12:30)
[2022-08-10] MEDS ORDERED: SUCCINYLCHOLINE CHLORIDE 200 MG/10 ML VIAL IV ONE (12:30)
[2022-08-10] MEDS ORDERED: TRANEXAMIC ACID IN NACL,ISO-OS 1,000 MG/100 ML BAG ONE (12:30)
[2022-08-10] MEDS ORDERED: ceFAZolin 3,000 MG in SODIUM CHLORIDE 0.9% IRRIGATIO 3,000 ML IRRIGATION ONE (12:56)
--- NOTE | 2022-08-10 13:27 | P.ANPRN ---
Procedure Note - Anesthesia - Nerve Block Performed Left Adductor Canal Infusion Time Out Performed: Yes Date of Procedure: 08/10/22 Procedure Start Time: 11:43 Procedure Stop Time: 11:55 Location of Patient: PreOp Indication: Acute Post-Operative Pain, Requested by Surgeon Specifically requested for management of pain by : Ga Tracey Sedation Type: Sedate with meaningful contact maintained Preparation: Sterile Prep, Sterile Dressing Position: Supine Catheter: Indwelling Needle Types: On-Q Needle Gauge: 18 Ultrasound used to visualize needle placement: Yes Ultrasound used to observe medication spread: Yes Injectate: 0.5% Ropivacaine (see comment for volume) (20 ml + decadron 2 mg) Narrative: Catheter position confirmed on u/s and via injection through catheter. Blood Aspirated: No Pain Paresthesia on Injection Noted: No Resistance on Injection: Normal Image Stored and Saved: Yes Events: Uneventful and Well Tolerated Left iPack Single Time Out Performed: Yes Date of Procedure: 08/10/22 Procedure Start Time: 12:56 Procedure Stop Time: 13:06 Location of Patient: PreOp Indication: Acute Post-Operative Pain, Requested by Surgeon Sedation Type: Sedate with meaningful contact maintained Preparation: Sterile Prep Position: Right Lateral Catheter: None Needle Types: Facet Needle Gauge: 20 Ultrasound used to visualize needle placement: Yes Ultrasound used to observe medication spread: Yes Injectate: 0.5% Ropivacaine (see comment for volume) (10 ml + decadron 2 mg) Blood Aspirated: No Pain Paresthesia on Injection Noted: No Resistance on Injection: Normal Image Stored and Saved: Yes Events: Uneventful and Well Tolerated
--- NOTE | 2022-08-10 14:06 | P.OP ---
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 Diminished bone quality/osteopenia/osteoporosis POSTOPERATIVE DIAGNOSIS: Left knee severe osteoarthritis with genu valgum; 2. Diminished bone quality/osteopenia/osteoporosis OPERATION: Left knee cemented total replacement arthroplasty, cemented metal on polyethylene with tibial stem extension 30 mm ANESTHESIA: General plus regional (ACB and IPAC blocks for postoperative pain control) ESTIMATED BLOOD LOSS: 150 ml. FRAME NAILER: Krys Brown PA-C (assistance with: patient positioning, retraction, exposure, hemostasis, leg positioning, implantation, irrigation, closure, dressing) COMPLICATIONS: None apparent. COMPONENTS IMPLANTED: Persona system from [employer] with tibial stem extension INDICATIONS: Booker is a 76 year old female with a history of knee osteoarthritis and genu valgum. She has already successfully undergone right knee replacement without complication. The patient's left knee is end-stage, and conservative management has failed. The operation of knee replacement has been discussed at length in the office, as well as potential risks and complications. These are inclusive of, but not limited to: bleeding, infection, scarring, discomfort, blood vessel and nerve damage, need for further surgery, failure to relieve symptoms, persistence, recurrence, or worsening of problems, loosening, dislocation, wear, blood clot, pulmonary embolism, , gait dysfunction, stiffness, and other risks as discussed in the office. The patient elects to proceed and the consent form has been signed. PROCEDURE: The patient was taken to the operating room and positioned on the operating room table in the supine position. Anesthesia was initiated. Care was taken to make sure that all pressure points were adequately padded. The operative lower extremity was prepped and draped in the usual aseptic fashion using ChloraPrep. Ioban drape was used for the case and the patient received intravenous antibiotics within one hour of the incision. A pneumotourniquet and leg lane were used for the case. The limb was exsanguinated with an Esmarch bandage and the tourniquet was inflated to 275 mmHg. Time-out was called confirming the patient's identity, side, procedure and administration of IV antibiotics and IV tranexamic acid. The incision was then created midline directly over the knee, carried down through skin and into the subcutaneous tissues and down to fascia. Full thickness subcutaneous medial flap was developed. Medial parapatellar arthrotomy was performed and the interior of the knee was inspected. There was end-stage osteoarthritis of the knee, particularly in the patellofemoral joint, with a moderate genu valgum type deformity. The fat pad was excised and limited proximal medial release on the tibia was completed using meticulous dissection and a curved osteotome. The anterior cruciate ligament was taken down. Note was made of significant attrition of the anterior and significant degenerative appearance of the posterior cruciate ligaments. The exposure was excellent. The knee was flexed 90 degrees and the patella was everted. A spot was chosen on the femur approximately 1 cm anterior to the posterior cruciate ligament insertion and an intramedullary hole was created within the femur. The intramedullary guide was then set to 5 degrees of valgus. The distal cutting block was attached and pinned into position. An appropriate amount of distal femoral resection was set. The oscillating saw was then used to make the distal femoral cut. This cut was confirmed to be flat with the flat end of an osteotome. The retractors were placed around the tibia and the tibial surface was addressed. The angle and depth of resection was adjusted using an extramedullary cutting guide. The guide had a built-in 3 degree posterior slope cut. Once the cutting guide was adjusted appropriately and in line with the axis of the tibia and confirmed to be in good position in relation to the second metatarsal and transmalleolar axis, the tibial cut was then created with protection of the posterior neurovascular structures and the collateral ligaments. Note was made of diminished bone quality and therefore a 30 mm tibial stem extension was planned. The tibial cut surface was removed and sized. Femoral sizing was then accomplished using anterior referencing. Care was taken to analyze the posterior condyles for signs of deficiency or severe wear, and adjustments to the guide were made, as appropriate. 3 degree external rotation pins were placed. The cutting jig for the femur was applied to these pins. The planned cuts were further analyzed prior to performing them with the oscillating saw. No femoral notching was produced. Bone fragments were removed and the cut surfaces were finished, as necessary, with a reciprocating saw. Spacer block technique was then used to confirm that the flexion and extension gaps were equal. Soft tissue releases and adjustment of the tibial and/or femoral cuts were made, as necessary, until the gaps were equal. This included release of the posterior cruciate ligament, which was tight in this patient and, if left unreleased, would have resulted in poor kinematics and possibly early loosening. Lateral capsule was released using a sharp curved osteotome. The femur was then further finished for a posterior cruciate ligament substituting component. Patellar resurfacing was performed using a reamer. The size of the required patellar component was estimated and the patellar surface was then reamed down to a residual thickness which would recreate the [place] thickness with the component. The exact placement of the patellar component was adjusted for position based on preoperative x-rays and intraoperative findings. The trial components were inserted. The tibial tray was allowed to self center and the patella was noted to track very well. The position of the tibial component was marked and the tibia was then finished for a stemmed tibial component. Cement was mixed on the back table and applied to the final components. Trial components were removed and the cut surfaces of the bone were pulse lavaged thoroughly and dried. Cement was then applied to the tibial surface and pressurized into the surface using finger pressurization technique. The tibial component with stem extension was then applied and excess cement was removed after it was impacted securely and noted to be flush with the cut surface. In similar fashion, the cement was applied to the cut femoral surface, pressurized in using finger pressurization and the component was impacted into place. Excess cement was removed. The polyethylene spacer was then implanted and locked into position. The patellar component was then applied in similar technique and a patellar clamp was used to hold the patella in place as the cement hardened. Once the cement had fully hardened, the knee was reinspected. Any other cement extrusion was removed and final kinematic testing showed range of motion from 0 to 130 degrees with excellent stability, both medially and laterally and appropriate alignment of the leg. Patellar tracking was excellent. The knee was then thoroughly pulse lavaged with normal saline. The tourniquet was deflated and hemostasis was obtained with electrocautery and IV tranexamic acid, 1 g given at the start of the operation and 1 g at the start of closure. Additionally, Surgicell powder was sprinkled within the knee. Closure was with #2 Ethibond in the fascia/capsule and supplemented with #2 Quill, 2-0 Vicryl suture was used for the subcutaneous tissues and 3-0 Quill for the skin. Jag mabond/Steri-Strips were then applied. A lightly compressive dressing was applied using Webril and an Jameel wrap. The patient was then transferred to [facility] and taken to the recovery room in stable condition. Sponge and needle counts were correct.
[2022-08-10] MEDS ORDERED: traMADol 50 MG TAB PO PRN (14:28)
[2022-08-10] MEDS ORDERED: MAGNESIUM HYDROXIDE 2,400 MG/10 ML CUP PO PRN (14:28)
[2022-08-10] MEDS ORDERED: hydrOXYzine pamoate 25 MG CAP PO PRN (14:28)
[2022-08-10] MEDS ORDERED: NALOXONE 0.4 MG/ML 1 ML VIAL IV PRN (14:28)
[2022-08-10] MEDS ORDERED: ONDANSETRON 4 MG/2 ML VIAL IVP PRN (14:28)
[2022-08-10] MEDS ORDERED: MORPHINE SULFATE 2 MG/ML SYRINGE IVP PRN ×2 (14:28)
--- NOTE | 2022-08-10 15:11 | XR ---
EXAMINATION TYPE: XR knee limited LT DATE OF EXAM: 08/10/2022 CLINICAL HISTORY: Postoperative evaluation Two views of the left knee are submitted. Identified are changes of total knee arthroplasty with fem oral and tibial components appearing well seated. Postsurgical soft tissue changes are noted. Align ment is anatomic.
[2022-08-10] MEDS: MORPHINE SULFATE 2 MG/ML SYRINGE IVP PRN ×2 (18:14→22:11)
[2022-08-10] MEDS ORDERED: VANCOMYCIN 1,000 MG in SODIUM CHLORIDE 0.9% 250 ML IVPB ONE (21:00)
[2022-08-10] MEDS ORDERED: TEMAZEPAM 15 MG CAP PO PRN (22:00)
[2022-08-10] MEDS: SENNOSIDES-DOCUSATE SODIUM 1 EACH TAB PO SCH (22:12)
[2022-08-11] MEDS: LACTATED RINGERS 1,000 ML IV SCH ×5 (01:48→19:38)
[2022-08-11] MEDS: MORPHINE SULFATE 2 MG/ML SYRINGE IVP PRN ×4 (01:49→21:25)
--- NOTE | 2022-08-11 07:09 | P.PN ---
Progress Note - Text Progress Note Date: 08/11/22 Patient doing well overall. Pain 9/10. Ambulating. Denies weakness. Adductor canal catheter site clean and dry. A/P POD#1 s/p L TKA - continue multimodal analgesia
[2022-08-11] MEDS ORDERED: HYDROcodone/APAP 5-325MG 1 EACH TAB PO PRN (10:56)
--- NOTE | 2022-08-11 10:56 | P.PN ---
Subjective Progress Note Date: 08/11/22 This is a 76-year-old female who is status post left total knee arthroplasty. This is postoperative day #1 and patient is seen and evaluated at bedside today. Patient states that she was able to work with physical therapy today. Patient states that she is having issues with pain control. Objective - Vital Signs Vital signs: Vital Signs Temp 98.9 F 08/11/22 07:41 Pulse 75 08/11/22 07:41 Resp 17 08/11/22 07:41 BP 118/70 08/11/22 07:41 Pulse Ox 94 L 08/11/22 09:33 FiO2 21 08/11/22 09:33 Intake & Output 08/10/22 08/11/22 08/11/22 18:59 06:59 18:59 Intake Total 851 Output Total 150 Balance 701 Weight 65.317 kg Intake: IV 851 Output: Estimated Blood Loss 150 Other: Voiding Method Toilet # Voids 1 3 # Bowel Movements 1 - Exam On exam patient is lying comfortably in bed in no acute distress. Patient is alert and oriented x3. Dressing is clean, dry and intact. No drainage. No erythema. Calf is soft and nontender to palpation. Sensation intact. Patient has full range of motion of the foot and ankle. Neurovascular status and circulatory status are intact. Assessment and Plan (1) Osteoarthritis of left knee Current Visit: Yes Status: Acute Code(s): M17.12 - UNILATERAL PRIMARY OSTEOARTHRITIS, LEFT KNEE SNOMED Code(s): 038718878549986 (2) S/P total knee arthroplasty Current Visit: Yes Status: Acute Code(s): Z96.659 - PRESENCE OF UNSPECIFIED ARTIFICIAL KNEE JOINT SNOMED Code(s): 3902687280737 Plan: 1.Weightbearing as tolerated to the left lower extremity 2. Anticoagulation with Xarelto. 3. Continue physical therapy. 4. Appreciate input from internal medicine. 5. Anticipate discharge home with home care tomorrow.
[2022-08-11] MEDS: HYDROcodone/APAP 5-325MG 1 EACH TAB PO PRN ×3 (11:10→23:04)
[2022-08-11 12:41] LABS: Basophils # (A) 0.02 X 10*3/uL (0.00-0.10); Basophils % (A) 0.2 %; Eosinophils # (A) 0 X 10*3/uL (0.04-0.35); Eosinophils % (A) 0 %; HCT 30.8 % (37.2-46.3); HGB 9.6 g/dL (12.0-15.0); Immature Grans, Automated 0.5 %; Lymphocytes # (A) 0.95 X 10*3/uL (0.90-5.00); Lymphocytes % (A) 7.9 %; MCH 26.9 pg (27.0-32.0); MCHC 31.2 g/dL (32.0-37.0); MCV 86.3 fL (80.0-97.0); Mean Platelet Volume 12.6 fL (9.5-12.2); Monocytes # (A) 1.38 X 10*3/uL (0.20-1.00); Monocytes % (A) 11.5 %; NRBC Per 100 WBC 0 /100 WBCS (0.0-0.0); Neutrophils # (A) 9.54 X 10*3/uL (1.80-7.70); Neutrophils % (A) 79.9 %; Platelet Count 168 X 10*3/uL (140-440); RBC 3.57 X 10*6/uL (4.10-5.20); RDW 15.8 % (11.5-14.5); WBC 11.95 X 10*3/uL (4.50-10.00)
[2022-08-11 12:42] LABS: RBC Morphology NORMAL
[2022-08-11] MEDS: LEVOTHYROXINE 125 MCG TAB PO SCH (12:58)
[2022-08-11] MEDS ORDERED: RIVAROXABAN 20 MG TAB PO SCH (17:30)
[2022-08-11] MEDS: SENNOSIDES-DOCUSATE SODIUM 1 EACH TAB PO SCH (21:25)
--- NOTE | 2022-08-12 00:53 | P.CONS ---
History of Present Illness - Reason for Consult Consult date: 08/11/22 Medical management - Chief Complaint Status post left total knee arthroplasty - History of Present Illness Patient is a 76-year-old female with a known history of atrial fibrillation on anticoagulation with Xarelto, hypothyroidism, osteoarthritis, hypertension and osteoarthritis was admitted to the hospital for elective left total knee arthroplasty. Patient tolerated the procedure very well. Currently pain is fairly controlled. No complaints of chest pain or shortness of breath. No nausea vomiting abdominal pain or diarrhea. No cough or sputum production. Patient was started back on Xarelto. Blood pressure is 107/57 today. Pulse ox 93% on room air. Laboratory showed WBC 11.9 hemoglobin 9.6 and platelets 168 Review of Systems Constitutional: Patient denies any fever or chills . no Generalized weakness. Abdomen: Patient denied any nausea or vomiting or abd. pain Cardiovascular: Patient denies any chest pain or short of breath no palpitations. Respiratory: patient denied any cough . no sputum production. No shortness of breath Neurologic: Patient denied any numbness or tingling headache. Musculoskeletal: Patient denies any complaints of joint swelling or deformity. Skin: Negative Psychiatric: Negative Endocrine: No heat or cold intolerance. No recent weight gain. Genitourinary: No dysuria or hematuria. All other 14 point ROS negative except the above Past Medical History Past Medical History: Atrial Fibrillation, Cancer, Hypertension, Osteoarthritis (OA), Thyroid Disorder Additional Past Medical History / Comment(s): Afib with successful LEON/CVN, murmur, R breast cancer with 2 lumpectomies/chemo/radiation,, severe arthritis bilateral knees and arthritis in hands, migraines, several kidney stones, hypothyroid, History of Any Multi-Drug Resistant Organisms: None Reported Past Surgical History: Breast Surgery, Orthopedic Surgery Additional Past Surgical History / Comment(s): R breast cancer/2 lumpectomies, breast biopsies, port a cath since removed, laser lithotripsies/bilateral ureteral stents, LEON/cardioversion, D&C, lumbar kyphoplasty, R knee arthrotomy and 2 R knee arthroscopies. Past Anesthesia/Blood Transfusion Reactions: Motion Sickness, Postoperative [place] & Vomiting (PONV) Additional Past Anesthesia/Blood Transfusion Reaction / Comm: Pt has clausterphobia. no blood tx Past Psychological History: No Psychological Hx Reported Additional Psychological History / Comment(s): Clausterphobia. Smoking Status: Never smoker Past Alcohol Use History: None Reported Past Drug Use History: None Reported - Past Family History Father Family Medical History: Coronary Artery Disease (CAD) Additional Family Medical History / Comment(s): Father was at age 82 yrs. Mother Family Medical History: No Reported History Additional Family Medical History / Comment(s): at age 90 from heart issues she incurred from Rheumatic Fever as a child. Medications and Allergies Home Medications Medication Instructions Recorded Confirmed Type Biotin [Biotin Disolve] 5,000 mcg PO DAILY 05/09/19 08/10/22 History Cholecalciferol (Vitamin D3) 50 mcg PO DAILY 05/09/19 08/10/22 History [Vitamin D3] Rivaroxaban [Xarelto] 20 mg PO DAILY 07/03/20 08/10/22 History dilTIAZem HCL [dilTIAZem HCL 24Hr 120 mg PO DAILY 08/23/20 08/10/22 History ER] Levothyroxine Sodium 125 mcg PO DAILY 05/08/21 08/10/22 History ramipriL [Altace] 10 mg PO DAILY 05/15/21 08/10/22 History Acetaminophen [Tylenol 8 Hour] 650 mg PO HS 07/11/21 08/10/22 History Exemestane [Aromasin] 25 mg PO Q3D 07/11/21 08/10/22 History Vit C/E/Zn/Coppr/Lutein/Zeaxan 2 tab PO DAILY 08/05/22 08/10/22 History [Preservision Areds 2 Softgel] Ondansetron Odt [Zofran Odt] 4 mg PO Q8HR PRN #14 tab 08/10/22 Rx Sennosides-Docusate Sodium 1 tab PO BID #60 tablet 08/10/22 Rx [Senokot-S] traMADol HCl [Ultram] 50 mg PO Q6HR PRN #28 tab 08/10/22 Rx Allergies Allergy/AdvReac Type Severity Reaction Status Date / Time cephalexin [From Keflex] AdvReac Nausea & Verified 08/10/22 11:14 Vomiting hydromorphone [From Dilaudid] AdvReac migraine Verified 08/10/22 11:14 Penicillins AdvReac Nausea & Verified 08/10/22 11:14 Vomiting Physical Exam Vitals: Vital Signs Temp Pulse Pulse Resp BP Pulse Ox FiO2 08/11/22 09:33 94 L 21 08/11/22 07:41 98.9 F 75 17 118/70 94 L 08/11/22 01:32 99.5 F 66 20 119/67 93 L 08/10/22 19:19 98.4 F 64 17 112/68 94 L 08/10/22 18:04 62 124/73 99 08/10/22 18:03 63 135/74 99 08/10/22 18:02 57 L 126/70 99 08/10/22 18:01 57 L 127/76 96 08/10/22 18:00 57 L 133/70 99 08/10/22 17:28 98.1 F 64 17 133/65 99 08/10/22 16:28 98.0 F 70 17 130/70 97 08/10/22 16:21 99 08/10/22 15:21 96 08/10/22 15:09 55 L 16 135/71 92 L 08/10/22 14:54 50 L 16 138/67 99 08/10/22 14:39 51 L 16 119/63 98 08/10/22 14:24 96.9 F L 54 L 16 122/61 99 Intake and Output 08/10/22 08/11/22 08/11/22 22:59 06:59 14:59 Intake Total 100 Balance 100 Intake: IV 100 Other: Voiding Method Toilet # Voids 1 3 2 # Bowel Movements 1 PHYSICAL EXAMINATION: Patient is lying in the bed comfortably, no acute distress, awake alert and oriented.. HEENT: Normocephalic. Neck is supple. Pupils reactive. Nostrils clear. Oral cavity is moist. Neck reveals no JVD, carotid bruits, or thyromegaly. CHEST EXAMINATION: Trachea is central. Symmetrical expansion. Lung molina clear to auscultation and percussion. CARDIAC: Normal S1, S2 with no gallops. No murmurs ABDOMEN: Soft. Bowel sounds present. Nontender. No organomegaly. No abdominal bruits. Extremities: reveal no edema. No clubbing or cyanosis Neurologically awake, alert, oriented x3 with well-coordinated movements. No focal deficits noted Skin: No rash or skin lesions. Psychiatric: Coperative. Nonsuicidal, Musculoskeletal: No joint swelling or deformity. Normal range of motion. Results CBC & Chem 7: 08/11/22 07:02 Assessment and Plan Assessment: S/p left total knee arthroplasty postoperative day 1 Hypertension. Paroxysmal atrial fibrillation on anticoagulation with Xarelto History of successful LEON/cardioversion Hypothyroidism Osteoarthritis GI and DVT prophylaxis Plan: Patient will be continued on pain management, bowel regimen and encourage incentive spirometry. Patient was started back on Xarelto. Continue with Cardizem and ramipril once blood pressure is more stable. Follow-up CBC and BMP tomorrow. We will continue to follow and further recommendations based on the clinical course. Thank you for your consult. Time with Patient: Greater than 30
[2022-08-12] MEDS: MORPHINE SULFATE 2 MG/ML SYRINGE IVP PRN (03:59)
[2022-08-12] MEDS: LEVOTHYROXINE 125 MCG TAB PO SCH (04:00)
[2022-08-12] MEDS: LACTATED RINGERS 1,000 ML IV SCH ×2 (04:04)
--- NOTE | 2022-08-12 07:35 | P.DS ---
Providers Expected date of discharge: 08/12/22 Attending physician: Ga Tracey Consults: 08/10/22 19:11 Consult Physician Urgent Consulting Provider: Maryjane Cortes Consult Reason/Comments: Medical management Do you want consulting provider notified?: Yes Primary care physician: Erich Holt - Discharge Diagnosis(es) (1) Osteoarthritis of left knee Current Visit: Yes Status: Acute (2) S/P total knee arthroplasty Current Visit: Yes Status: Acute Hospital Course: This is a 76-year-old female who was last seen with complaint of continued left knee pain. The patient has a known history of degenerative arthritis of the left knee and presents to discuss surgical options. After discussion and consideration the patient elects to proceed with total left knee arthroplasty. The patient is seen preoperatively by her primary care physician and cleared for surgery. The patient is admitted to [facility] for total left knee arthroplasty. The procedures performed without complication or sequelae. He is doing well postoperatively. Vital signs are stable at discharge. Labs are stable at discharge. the patient is ambulating well with walker with minimal assistance. The patient is discharged to home on postop day #2 pending medical clearance. Please see orders and refer to the [facility] rec for accurate list of medications. Patient Condition at Discharge: Good Plan - Discharge Summary Discharge Rx Participant: No New Discharge Prescriptions: New Sennosides-Docusate Sodium [Senokot-S] 1 tab PO BID #60 tablet traMADol HCl [Ultram] 50 mg PO Q6HR PRN #28 tab PRN Reason: Pain Ondansetron Odt [Zofran Odt] 4 mg PO Q8HR PRN #14 tab PRN Reason: Nausea No Action Cholecalciferol (Vitamin D3) [Vitamin D3] 50 mcg PO DAILY Biotin [Biotin Disolve] 5,000 mcg PO DAILY Rivaroxaban [Xarelto] 20 mg PO DAILY dilTIAZem HCL [dilTIAZem HCL 24Hr ER] 120 mg PO DAILY Levothyroxine Sodium 125 mcg PO DAILY Exemestane [Aromasin] 25 mg PO Q3D Vit C/E/Zn/Coppr/Lutein/Zeaxan [Preservision Areds 2 Softgel] 2 tab PO DAILY ramipriL [Altace] 10 mg PO DAILY Acetaminophen [Tylenol 8 Hour] 650 mg PO HS Discharge Medication List Biotin [Biotin Disolve] 5,000 mcg PO DAILY 05/09/19 [History] Cholecalciferol (Vitamin D3) [Vitamin D3] 50 mcg PO DAILY 05/09/19 [History] Rivaroxaban [Xarelto] 20 mg PO DAILY 07/03/20 [History] dilTIAZem HCL [dilTIAZem HCL 24Hr ER] 120 mg PO DAILY 08/23/20 [History] Levothyroxine Sodium 125 mcg PO DAILY 05/08/21 [History] ramipriL [Altace] 10 mg PO DAILY 05/15/21 [History] Acetaminophen [Tylenol 8 Hour] 650 mg PO HS 07/11/21 [History] Exemestane [Aromasin] 25 mg PO Q3D 07/11/21 [History] Vit C/E/Zn/Coppr/Lutein/Zeaxan [Preservision Areds 2 Softgel] 2 tab PO DAILY 08/05/22 [History] Ondansetron Odt [Zofran Odt] 4 mg PO Q8HR PRN #14 tab 08/10/22 [Rx] Sennosides-Docusate Sodium [Senokot-S] 1 tab PO BID #60 tablet 08/10/22 [Rx] traMADol HCl [Ultram] 50 mg PO Q6HR PRN #28 tab 08/10/22 [Rx] Follow up Appointment(s)/Referral(s): Krys Brown, PIPPA [PHYSICIAN DINKEY DRIVER] - [address] [facility] - As Needed Activity/Diet/Wound Care/Special Instructions: May bear wt as tolerated w walker. May remove rama and stocking 48h post op. May shower 48h post op. Keep Optifoam dressing intact 7 days. May resume Xarelto post op day 1. Discharge Disposition: HOME WITH HOME HEALTH SERVICES
[2022-08-12 07:39] VITALS: BP 143/79; PULSE 70; RESP 16; TEMP 99.6
[2022-08-12 07:58] LABS: African American GFR (CKD) >90 (>60 ml/min/1.73 sqM); Anion Gap 4 mmol/L; Blood Urea Nitrogen 15 mg/dL (7-17); Calcium 8.6 mg/dL (8.4-10.2); Carbon Dioxide 27 mmol/L (22-30); Chloride 105 mmol/L (98-107); Glucose 99 mg/dL (74-99); Non-African American GFR(CKD) 82 (>60 ml/min/1.73 sqM); Potassium 4.1 mmol/L (3.5-5.1); Sodium 136 mmol/L (137-145)
[2022-08-12] MEDS: HYDROcodone/APAP 5-325MG 1 EACH TAB PO PRN (08:26)
[2022-08-12] MEDS ORDERED: DILTIAZEM CD 120 MG CAP.ER.24H PO SCH (09:00)
== END 2022-08-12 13:22 | disposition home health service (06) ==
LOC: OR 10:40 → 4SSUR 14:39 → OR 08-12 13:22
PROVIDERS: ATTEND Orthopaedic Surgery
DX: M17.12 Unilateral primary osteoarthritis, left knee (principal); M21.069 Valgus deformity, not elsewhere classified, unspecified knee; G89.18 Other acute postprocedural pain; I10 Essential (primary) hypertension; I48.91 Unspecified atrial fibrillation; E07.9 Disorder of thyroid, unspecified; Z85.3 Personal history of malignant neoplasm of breast; Z79.899 Other long term (current) drug therapy; Z79.890 Hormone replacement therapy; K91.0 Vomiting following gastrointestinal surgery; Z82.49 Family history of ischemic heart disease and other diseases of the circulatory system; Z88.8 Allergy status to other drugs, medicaments and biological substances; Z88.0 Allergy status to penicillin
CPT/HCPCS: 94760 ×2; 97161; 64999; 64448; 76942; 85025; 73560; 27438; C1713; C1776; C1751; J2250; J3370; J1100; J0690 ×2; J2405; J2270 ×2; J2795; 80048

== ENCOUNTER → 2023-04-23 | Outpatient (CLI) | payer MEDICARE, OTHER ==
--- NOTE | 2023-04-23 13:41 | MM ---
Reason for Exam: Hx of breast cancer, conservation therapy. Last screening mammogram was performed 12 month(s) ago. Patient History: Menarche at age 14. First Full-Term at age 30. Postmenopausal. Patient has history of breast feeding. Breast cancer, right, age 73. Previous chest radiation therapy at age 73. Previous chemotherapy at age 73. 10/22/2020, Benign Excisional Biopsy on the right side. 06/07/2019, Lumpectomy on the Right side. 09/22/2019, Benign Core Biopsy on the right side. 09/22/2019, Benign Core Biopsy on the right side. 06/07/2019, Malignant Core Biopsy on the right side. 05/15/2019, Malignant Core Biopsy on the right side. Prior Study Comparison: 01/25/1995 Screening Mammogram, Unknown. 09/25/2015 Bilateral Screening Mammogram, [facility]. 09/07/2017 Bilateral Screening Mammogram, [facility]. 05/15/2019 Right Diagnostic Mammogram, [facility]. 09/21/2019 Right Diagnostic Ultrasound, [facility]. 09/22/2019 Right Diagnostic Mammogram, [facility]. 12/25/2019 Right Diagnostic Mammogram, [facility]. 01/04/2020 Right Diagnostic Ultrasound, [facility]. 04/15/2020 Bilateral Diagnostic Mammogram, [facility]. 04/15/2020 Right Diagnostic Ultrasound, [facility]. 04/19/2020 Right Diagnostic Ultrasound, [facility]. 04/22/2021 Bilateral Diagnostic Mammogram, [facility]. 04/23/2022 Bilateral MG 3D diag mammo w/cad [facility], [facility]. Tissue Density: The breast tissue is heterogeneously dense. This may lower the sensitivity of mammography. Findings: Analyzed By CAD. Postsurgical and posttreatment changes right breast. 7 mm area of nodularity far posterior left breast on the CC projection was previously not seen. It appears to move slightly to the outer aspect on the rolled lateral view suggesting a 12:00 position. Further ultrasound evaluation recommended. Overall Assessment: Incomplete: need additional imaging evaluation, BI-RAD 0 Management: Diagnostic Breast Ultrasound of the left breast. Targeted to the 11 to 1:00 position far posteriorly. Electronically signed and approved by: Neema Blair M.D. Radiologist
--- NOTE | 2023-04-23 15:01 | USB ---
Reason for Exam: Additional evaluation requested from abnormal screening. Patient History: Menarche at age 14. First Full-Term at age 30. Postmenopausal. Patient has history of breast feeding. Breast cancer, right, age 73. Previous chest radiation therapy at age 73. Previous chemotherapy at age 73. 10/22/2020, Benign Excisional Biopsy on the right side. 06/07/2019, Lumpectomy on the Right side. 09/22/2019, Benign Core Biopsy on the right side. 09/22/2019, Benign Core Biopsy on the right side. 06/07/2019, Malignant Core Biopsy on the right side. 05/15/2019, Malignant Core Biopsy on the right side. Technique: Method: Targeted. Prior Study Comparison: 04/15/2020 Bilateral Diagnostic Mammogram, [facility]. 04/22/2021 Bilateral Diagnostic Mammogram, [facility]. 04/23/2022 Bilateral MG 3D diag mammo w/cad YULIYA, [facility]. Findings: The upper section of the breast of the left breast, the axilla of the left breast and the retroareolar of the left breast were scanned. Targeted ultrasound superior aspect of the left breast from 11:00 to 1:00 including scanning of the subareolar region and axilla. At the 11:00 position, 10 cm from the nipple, there is an oval, circumscribed hypoechoic structure measuring 6 x 6 x 3 mm, possible mammographic correlate. Tissue sampling with clip placement and subsequent mammographic correlation is recommended. Scattered dense tissue is present Nonenlarged left axillary lymph node noted. No other solid or cystic lesion. Overall Assessment: Suspicious, BI-RAD 4 Management: Ultrasound Core Biopsy of the left breast. The 11:00 area. Relatively low clinical suspicion but we recommend post biopsy mammogram after clip placement to ensure that this is the new mammographic correlate Results were given to the patient verbally at the time of exam. Electronically signed and approved by: Neema Blair M.D. Radiologist
== END | disposition home or self-care (01) ==
LOC: RADMAMWWP 12:47
PROVIDERS: ATTEND Radiology Radiation Oncology
DX: R92.333 Mammographic heterogeneous density, bilateral breasts (principal); Z78.0 Asymptomatic menopausal state; Z85.3 Personal history of malignant neoplasm of breast; Z79.811 Long term (current) use of aromatase inhibitors; Z92.3 Personal history of irradiation; Z92.21 Personal history of antineoplastic chemotherapy
CPT/HCPCS: 77066; 76642; G0279; 77062

== ENCOUNTER → 2023-05-12 | Day surgery (SDC) | payer MEDICARE, OTHER ==
--- NOTE | 2023-05-18 10:27 | MM ---
Reason for Exam: Post Procedure Mammogram. Last screening mammogram was performed less than 1 month ago. Patient History: Menarche at age 14. First Full-Term at age 30. Postmenopausal. Patient has history of breast feeding. Breast cancer, right, age 73. Previous chest radiation therapy at age 73. Previous chemotherapy at age 73. 10/22/2020, Benign Excisional Biopsy on the right side. 06/07/2019, Lumpectomy on the Right side. 09/22/2019, Benign Core Biopsy on the right side. 09/22/2019, Benign Core Biopsy on the right side. 06/07/2019, Malignant Core Biopsy on the right side. 05/15/2019, Malignant Core Biopsy on the right side. Prior Study Comparison: 01/25/1995 Screening Mammogram, Unknown. 09/21/2019 Right Diagnostic Ultrasound, [facility]. 09/22/2019 Right Diagnostic Mammogram, [facility] 12/25/2019 Right Diagnostic Mammogram, [facility]. 01/04/2020 Right Diagnostic Ultrasound, [facility]. 04/15/2020 Bilateral Diagnostic Mammogram, [facility]. 04/15/2020 Right Diagnostic Ultrasound, [facility]. 04/19/2020 Right Diagnostic Ultrasound, [facility]. 04/22/2021 Bilateral Diagnostic Mammogram, [facility]. 04/23/2022 Bilateral MG 3D diag mammo w/cad YULIYA, [facility]. 04/23/2023 Left US breast limited LT, [facility]. 04/23/2023 Bilateral MG 3D diag mammo w/cad YULIYA, [facility]. Tissue Density: Left: The breast tissue is heterogeneously dense. This may lower the sensitivity of mammography. Pathology Description: Location: 11 o'clock. Marker Left Behind. Needle Type: Mammotome Cores: 4 Skin Nicks: 1 Gauge: 13 The procedure of ultrasound guided core biopsy was explained to the patient. Benefits, alternatives, and risks were discussed. An informed consent was then obtained. A timeout was performed. The patient was placed in supine positioning for imaging and for the procedure. The overlying skin was prepped and draped in usual sterile fashion. Lidocaine was used as anesthetic into the skin and subcutaneous tissue up to area of concern in the left breast. A small skin keo was made with surgical scalpel. Under ultrasound guidance, a 12-gauge vacuum assisted biopsy gun device was used to obtain 4 core samples. A biopsy clip was left in lesion. Hydromark butterfly core marker was placed. The patient tolerated the procedure well without any immediate complication. The patient was kept in the radiology department for short stay after the procedure and then discharged home in stable condition. Postprocedure mammogram: The patient was transferred to mammography for physician ordered post procedure mammogram for clip placement verification. Impression: Successful ultrasound guided core biopsy of area of concern in the left breast, full pathology results to follow. Recommendations: 1. Recommendations are pending pathology results. Pathology Results: Result: Benign, Fibroadenoma. LEFT BREAST, ELEVEN O'CLOCK, ULTRASOUND GUIDED CORE BIOPSY: Compatible with benign fibroadenoma. Overall Assessment: Benign Assessment: MG diagnostic mammo LT wo CAD. - Left: Benign, BI-RAD 2. Management: Diagnostic Mammogram of the left breast in 6 months. Electronically signed and approved by: Abel Collado D.O. Radiologis
== END ==
LOC: RADUSWWP 07:42
PROVIDERS: ATTEND Radiology Radiation Oncology
DX: D24.2 Benign neoplasm of left breast (principal)
CPT/HCPCS: 88305; 77065; 19083; A4648

== ENCOUNTER → 2023-11-23 | Outpatient (CLI) | payer MEDICARE, OTHER ==
--- NOTE | 2023-11-23 11:00 | MM ---
Reason for Exam: Follow-up at short interval from prior study. Last screening mammogram was performed 7 month(s) ago. Patient History: Menarche at age 14. First Full-Term at age 30. Postmenopausal. Patient has history of breast feeding. Breast cancer, right, age 73. Previous chest radiation therapy at age 73. Previous chemotherapy at age 73. 05/12/2023, Benign US biopsy breast VAD LT on the left side. 10/22/2020, Benign Excisional Biopsy on the right side. 06/07/2019, Lumpectomy on the Right side. 09/22/2019, Benign Core Biopsy on the right side. 09/22/2019, Benign Core Biopsy on the right side. 06/07/2019, Malignant Core Biopsy on the right side. 05/15/2019, Malignant Core Biopsy on the right side. Prior Study Comparison: 04/23/2022 Bilateral MG 3D diag mammo w/cad YULIYA, [facility]. 04/23/2023 Bilateral MG 3D diag mammo w/cad YULIYA, [facility]. 05/12/2023 Left MG diagnostic mammo LT wo CAD., [facility]. Tissue Density: Left: The breasts are heterogeneously dense, which may obscure small masses. Findings: Analyzed By CAD. Recently sampled lesion is redemonstrated with internal clip. No interval enlargement. No new lesions seen. No suspicious calcifications. Overall Assessment: Benign, BI-RAD 2 Management: Diagnostic Mammogram of both breasts in 6 months. . Results were given to the patient verbally at the time of exam. Patient should continue monthly self-breast exams. A clinical breast exam by your physician is recommended on an annual basis. This exam should not preclude additional follow-up of suspicious palpable abnormalities. Note on Shanna scores and lifetime risk: 1. A Shanna score greater than 3% is considered moderate risk. If this is the case, consider specialist referral to assess eligibility for a risk reducing agent. 2. If overall lifetime risk for the development of breast cancer is 20% or higher, the patient may qualify for future screening with alternating mammogram and breast MRI. Electronically signed and approved by: Randy Purvis M.D. Radiologis
== END | disposition home or self-care (01) ==
LOC: RADMAMWWP 10:33
PROVIDERS: ATTEND Radiology Radiation Oncology
DX: C50.411 Malignant neoplasm of upper-outer quadrant of right female breast (principal); Z08 Encounter for follow-up examination after completed treatment for malignant neoplasm; R92.332 Mammographic heterogeneous density, left breast; Z78.0 Asymptomatic menopausal state; Z80.3 Family history of malignant neoplasm of breast; Z79.811 Long term (current) use of aromatase inhibitors; Z92.3 Personal history of irradiation; Z17.0 Estrogen receptor positive status [ER+]; Z92.21 Personal history of antineoplastic chemotherapy
CPT/HCPCS: 77065; G0279; 77061

== ENCOUNTER → 2024-03-03 | Outpatient (CLI) | payer MEDICARE, OTHER ==
--- NOTE | 2024-03-03 18:08 | BD ---
EXAMINATION TYPE: Axial Bone Density DATE OF EXAM: 03/03/2024 CLINICAL HISTORY: 78 years old Female. ICD-10 CODE: M81.0 OSTEOPOROSIS , Z78.0 Height: 67 Weight: 159 FRAX RISK QUESTIONS: Family History (Parent hip fracture): no History of Fracture in Adulthood: no Secondary Osteoporosis: no RISK FACTORS HISTORY OF: Surgery to Spine/Hip(right/left)/Wrist (right/left): no MEDICATIONS: Thyroid Medications: yes Which medication: Levothyroxine How Lon years + Osteoporosis Medications: no EXAM MEASUREMENTS: Bone mineral densitometry was performed using the [employer] System. Bone mineral density as measured about the Lumbar spine is: ----- L1-L4(G/cm2): 0.881 T Score Values are as follows: ----- L1: -2.7 ----- L2: -3.4 ----- L3: -2.4 ----- L4: -1.8 ----- L1-L4: -2.5 Z Score Values are as follows: ----- L1: -1.2 ----- L2: -1.8 ----- L3: -0.9 ----- L4: -0.3 ----- L1-L4: -1.0 Bone mineral density has: Decreased -3.9% since study of: 03-02-2022 Bone mineral density about the R hip (g/cm2): 0.739 Bone mineral density about the L hip (g/cm2): 0.731 T Score values are as follows: -----R Neck: -1.7 -----L Neck: -1.8 -----R Total: -2.1 -----L Total: -2.2 Z Score values are as follows: -----R Neck: 0.1 -----L Neck: 0.1 -----R Total: -0.5 -----L Total: -0.6 Bone mineral density has: Increased 1.4% since study of: 03-02-2022 FRAX%s: The graph provided illustrates a 13.2% chance for a major osteoporotic fx and a 3.2% chance f or the hips probability for fx in 10 years time. IMPRESSION: Osteoporosis (T Score less than -2.5). There is increased fracture risk and therapy is usually indicated based on age. Re-Screen 1-2 years. NOTE: T-SCORE=SD OF THE YOUNG ADULT MEAN. [facility], , 03/03/2024 6:06 PM
== END | disposition home or self-care (01) ==
LOC: RADBDWWP 09:48
PROVIDERS: ATTEND Internal Medicine Hematology & Oncology
DX: C50.411 Malignant neoplasm of upper-outer quadrant of right female breast (principal); M81.0 Age-related osteoporosis without current pathological fracture
CPT/HCPCS: 77080

== ENCOUNTER → 2024-04-05 | Outpatient (CLI) | payer MEDICARE, OTHER ==
--- NOTE | 2024-04-05 21:21 | US ---
EXAMINATION TYPE: US kidneys/renal and bladder DATE OF EXAM: 04/05/2024 COMPARISON: ct CLINICAL INDICATION: Female, 78 years old with history of R31.9 HEMATURIA N39.0 UTI; Pt states UTI, h /o kidney stones and multiple lithotripsy TECHNIQUE: Grayscale imaging of the bilateral kidneys and urinary bladder: FINDINGS: EXAM MEASUREMENTS: Right Kidney: 10.9 x 4.7 x 4.5 cm Left Kidney: 10.4 x 5.8 x 4.9 cm Right Kidney: Mildly dilated renal pelvis, multiple echogenic foci scattered throughout, largest 6mm in size, hypoechoic lesion lower pole= 2.1 x 1.7 x 1.9 cm Left Kidney: Mildly dilated renal pelvis, multiple echogenic foci scattered throughout, largest 8mm i n size, largest cystic lesion mid= 5.6 x 4.7 x 6.1 cm Bladder: wnl Bilateral Jets seen: No There is no evidence for hydronephrosis at this point in time. No solid masses are identified. The urinary bladder is anechoic. IMPRESSION: 1. No evidence for obstructive uropathy. 2. Bilateral renal cysts. 3. Bilateral nonobstructing renal calculi. [facility], , 04/05/2024 9:18 PM
== END | disposition home or self-care (01) ==
LOC: RADUSWWP 16:22
PROVIDERS: ATTEND Internal Medicine
DX: N20.0 Calculus of kidney (principal); R31.9 Hematuria, unspecified; N28.1 Cyst of kidney, acquired; N39.0 Urinary tract infection, site not specified; Z87.442 Personal history of urinary calculi; Z87.440 Personal history of urinary (tract) infections
CPT/HCPCS: 76770

== ENCOUNTER → 2024-05-10 | Outpatient (CLI) | payer MEDICARE, OTHER ==
--- NOTE | 2024-05-10 10:19 | MM ---
Reason for Exam: Additional evaluation requested from prior study. Last mammogram was performed 1 year(s) and 1 month(s) ago. Patient History: Menarche at age 14. First Full-Term at age 30. Postmenopausal. Patient has history of breast feeding. Breast cancer, right, age 73. Previous chest radiation therapy at age 73. Previous chemotherapy at age 73. 05/12/2023, Benign US biopsy breast VAD LT on the left side. 10/22/2020, Benign Excisional Biopsy on the right side. 06/07/2019, Lumpectomy on the Right side. 09/22/2019, Benign Core Biopsy on the right side. 09/22/2019, Benign Core Biopsy on the right side. 06/07/2019, Malignant Core Biopsy on the right side. 05/15/2019, Malignant Core Biopsy on the right side. Tissue Density: The breasts are heterogeneously dense, which may obscure small masses. Findings: Analyzed By CAD. Right breast surgical clips. Left breast biopsy clip posterior depth on MLO only. No new suspicious masses, calcifications or distortions. Overall Assessment: Benign, BI-RAD 2 Management: Screening Mammogram of both breasts in 1 year. Results were given to the patient verbally at the time of exam. Patient should continue monthly self-breast exams. A clinical breast exam by your physician is recommended on an annual basis. This exam should not preclude additional follow-up of suspicious palpable abnormalities. Note on Shanna scores and lifetime risk: 1. A Shanna score greater than 3% is considered moderate risk. If this is the case, consider specialist referral to assess eligibility for a risk reducing agent. 2. If overall lifetime risk for the development of breast cancer is 20% or higher, the patient may qualify for future screening with alternating mammogram and breast MRI. [facility], , 05/10/2024 10:16 AM. Electronically signed and approved by: Miguel Combs DO
== END | disposition home or self-care (01) ==
LOC: RADMAMWWP 09:53
PROVIDERS: ATTEND Radiology Radiation Oncology
DX: C50.411 Malignant neoplasm of upper-outer quadrant of right female breast (principal); R92.333 Mammographic heterogeneous density, bilateral breasts; Z78.0 Asymptomatic menopausal state; Z92.3 Personal history of irradiation; Z85.3 Personal history of malignant neoplasm of breast
CPT/HCPCS: 77066; G0279; 77062

== ENCOUNTER → 2024-08-07 | Outpatient (CLI) | payer MEDICARE, OTHER ==
--- NOTE | 2024-08-07 14:14 | XR ---
EXAMINATION TYPE: XR KUB DATE OF EXAM: 08/07/2024 1:51 PM CLINICAL INDICATION: Female, 78 years old with history of R319 HEMATURIA, UNSPECIFIED, pain TECHNIQUE: 2 supine KUB images of the abdomen. COMPARISON: CT abdomen and pelvis May 19, 2021. FINDINGS: Scattered gas is seen in non-distended small bowel loops. Gas and fecal material is seen in non-distended colon. Moderate diffuse colonic fecal prominence makes evaluation suboptimal. Calcific ations in the inferior pelvis correspond to calcified fibroids on CT. Roughly 2-3 small renal calculi are redemonstrated bilaterally. Osseous structures are intact. IMPRESSION: A few small nonobstructing bilateral renal calculi are redemonstrated. [facility], , 08/07/2024 2:12 PM
== END | disposition home or self-care (01) ==
LOC: RADXRMAIN 13:32
PROVIDERS: ATTEND Internal Medicine
DX: N20.0 Calculus of kidney (principal)
CPT/HCPCS: 74018